=== PATIENT | male | born 1950 | race Caucasian/White ===

== ENCOUNTER → 2018-08-28 10:03 | Outpatient (CLI) | payer MEDICARE, SELFPAY ==
[2018-06-11 10:10] VITALS: BMI 27.8
[2018-08-28 10:44] LABS: Hemoglobin 15.6 g/dl (13.0-16.5); Mean Corp Hgb Conc 33.2 g/gl (32-36); Mean Corpuscular Hgb 31.8 pg (27.0-32.0); Mean Corpuscular Volume 95.7 fL (80-94); Mean Platelet Vol. 10.7 fl (6.2-12.0); Platelet Count 166 K/mm3 (150-450); RBC Distribution Width CV 13.8 % (11.6-14.6); RBC Distribution Width SD 46.7 fl (35.1-43.9); Red Blood Count 4.91 M/mm3 (4.6-6.2); White Blood Count 5.5 K/mm3 (4.4-11.0)
[2018-08-28 10:45] LABS: Scan Indicated on CBC? Y/N NO
[2018-08-28 11:19] LABS: Anion Gap 8 (5-15); BUN 17 mg/dL (7-18); BUN/Creat Ratio 11.3 RATIO (10-20); Calcium,Total 8.7 mg/dL (8.5-10.1); Chloride 106 mmol/L (98-107); Creatinine, Serum 1.51 mg/dL (0.70-1.30); EST Glomerular Filtration Rate 49 mL/min (>60); Est Glom Filt Rate - Afr Amer 60 mL/min (>60); Glucose 198 mg/dL (74-106); Potassium 4.3 mmol/L (3.5-5.1); Sodium Level 139 mmol/L (136-145); T4 Total, Thyroxin 8.3 ug/dL (4.5-12.1); Thyroid Stim Hormone (TSH) 1.39 uIU/mL (0.358-3.74)
== END ==
PROVIDERS: Family Provider Family Medicine; PCP Family Medicine; Referring Provider Internal Medicine Cardiovascular Disease; Visit Provider Internal Medicine Cardiovascular Disease
DX: E27.40 Unspecified adrenocortical insufficiency (principal); I48.91 Unspecified atrial fibrillation; N18.9 Chronic kidney disease, unspecified; K51.90 Ulcerative colitis, unspecified, without complications; I48.0 Paroxysmal atrial fibrillation; Z94.4 Liver transplant status
CPT/HCPCS: 36415; 80048; 84436; 84443; 85027; 93225; 93226

== ENCOUNTER 2018-09-01 22:54 | Observation (INO) | payer MEDICARE, SELFPAY ==
[2018-06-11 10:10] VITALS: BMI 27.8
[2018-09-01 22:55] VITALS: PULSE 136; RESP 19; TEMP 37.8; O2SAT 93; BMI 26.9
--- NOTE | 2018-09-01 22:57 | ED.RN ---
RN CALLED FOR EKG, PULLED OLD EKGS FOR
[2018-09-01 22:59] VITALS: BP 102/66; PULSE 113; RESP 18; TEMP 37.8; O2SAT 95
--- NOTE | 2018-09-01 23:17 | RAD_ITS ---
STUDY: X-RAY CHEST REASON FOR EXAM: Male, 68 years old. Rapid heart rate TECHNIQUE: PA and lateral COMPARISON: None. FINDINGS: The lungs are clear and expanded. There is no demonstrated pleural abnormality. Normal size heart. Normal mediastinum and romel. Normal visualized pulmonary arteries. Normal visualized aortic arch and descending thoracic aorta. Normal visualized thoracic spine. Normal visualized ribs, clavicles, and shoulders. There is no demonstrated abnormality of the visualized soft tissue structures of the upper abdomen. RAD/Chest PA and Lateral IMPRESSION: Normal x-ray examination of the chest. Electronically Signed: Isacc Montes MD at 1:34 EDT , Service support ,
--- NOTE | 2018-09-01 23:17 | EKG12_ITS ---
Test Reason : CP Blood Pressure : / mmHG Vent. Rate : 136 BPM Atrial Rate : 144 BPM P-R Int : 000 ms QRS Dur : 100 ms QT Int : 314 ms P-R-T Axes : 000 -68 041 degrees QTc Int : 472 ms Supraventricular tachycardia Left axis deviation Inferior infarct , age undetermined Anterior infarct , age undetermined Abnormal ECG Confirmed by TERRI COSME, DENNY ([id number]), book editor MARYJANE JULIAN ([id number]) on 09/06/2018 9:09:49 AM Referred By: Denny Doan Confirmed By:DENNY DOAN MD
--- NOTE | 2018-09-01 23:19 | ED.VISSUMM ---
- ER Visit Summary Date of Service: 09/01/18 Chief Complaint: Chest pain and palpitations History of Present Illness: The patient is a 68 M who presents with chest pain that began tonight. Patient describes the pain is sharp and pressure-like. Patient states pain is over the left chest and left shoulder. Patient states nothing seems to make it better or worse. Patient states he felt like his heart was racing. Patient states his watch said that his heart rate was 130. Patient admits to some shortness of breath. Patient admits to a cough and low-grade fever. Patient also admits to some lightheadedness. Patient denies any nausea or vomiting. Patient denies any diaphoresis. Physical Examination: Vital signs are stable except for a tachycardia of 136. Patient does have a temperature 100.1. Oxygen saturation is normal. Respiratory rate is normal. Patient is in no acute distress. Oral mucosa is pink and moist. Neck is supple. Trachea is midline. There is no JVD noted. Heart was regular with frequent ectopics. Lungs are clear and equal bilateral. There is good respiratory effort noted. Abdomen is soft. Bowel sounds are normal. There is no tenderness. There is no guarding noted. Cranial nerves II through XII are intact. There are no focal motor or sensory deficits noted. Test Results: EKG showed a supraventricular tachycardia at 136. There are no acute ST or T wave changes. Other than the heart rate, there are no acute changes compared to previous EKG dated 02/13/2013. CBC was normal. Basic metabolic profile, troponin, and d-dimer were obtained and were all normal. X-ray does not show any acute cardiopulmonary process. Emergency Department Course and Treatment: Patient was given IV fluids here. Patient is allergic to acetaminophen, aspirin, Naprosyn, and ibuprofen so I was unable to give him any antipyretic. Patient is chest pain has been waxing and waning. Patient's shoulder pain has been intermittent. Patient was feeling better on reevaluation. Patient has a HEART score of 5. Patient has a DIANE score of 2. I am unsure of the exact etiology of the patient's pain. I think the patient should be admitted for observation for further cardiac evaluation. Patient states it has been a long time since his last stress test. Case was discussed with the hospitalist. He will admit the patient for observation. Disposition: Admit for observation Impression: Chest pain This note was generated with [employer] dictation software. It may contain incorrect words, spelling, and punctuation that were not noted in review of the chart prior to signing ED Disposition - Plan for ED Patient: Referrals: Sudhir Richter MD [Primary Care Provider] -
--- NOTE | 2018-09-01 23:22 | ED.DCSUM_ITS ---
- ER Visit Summary Date of Service: 09/01/18 Chief Complaint: Chest pain and palpitations History of Present Illness: The patient is a 68 M who presents with chest pain that began tonight. Patient describes the pain is sharp and pressure-like. Patient states pain is over the left chest and left shoulder. Patient states nothing seems to make it better or worse. Patient states he felt like his heart was racing. Patient states his watch said that his heart rate was 130. Patient admits to some shortness of breath. Patient admits to a cough and low-grade fever. Patient also admits to some lightheadedness. Patient denies any nausea or vomiting. Patient denies any diaphoresis. Physical Examination: Vital signs are stable except for a tachycardia of 136. Patient does have a temperature 100.1. Oxygen saturation is normal. Respiratory rate is normal. Patient is in no acute distress. Oral mucosa is pink and moist. Neck is supple. Trachea is midline. There is no JVD noted. Heart was regular with frequent ectopics. Lungs are clear and equal bilateral. There is good respiratory effort noted. Abdomen is soft. Bowel sounds are normal. There is no tenderness. There is no guarding noted. Cranial nerves II through XII are intact. There are no focal motor or sensory deficits noted. Test Results: EKG showed a supraventricular tachycardia at 136. There are no acute ST or T wave changes. Other than the heart rate, there are no acute c hanges compared to previous EKG dated 02/13/2013. CBC was normal. Basic metabolic profile, troponin, and d-dimer were obtained and were all normal. X- ray does not show any acute cardiopulmonary process. Emergency Department Course and Treatment: Patient was given IV fluids here. Patient is allergic to acetaminophen, aspirin, Naprosyn, and ibuprofen so I was unable to give him any antipyretic. Patient is chest pain has been waxing and waning. Patient's shoulder pain has been intermittent. Patient was feeling better on reevaluation. Patient has a HEART score of 5. Patient has a DIANE score of 2. I am unsure of the exact etiology of the patient's pain. I think the patient should be admitted for observation for further cardiac evaluation. Patient states it has been a long time since his last stress test. Case was discussed with the hospitalist. He will admit the patient for observation. Disposition: Admit for observation Impression: Chest pain This note was generated with [employer] dictation software. It may contain incorrect words, spelling, and punctuation that were not noted in review of the chart prior to signing ED Disposition - Plan for ED Patient: Referrals: Sudhir Richter MD [Primary Care Provider] -
[2018-09-01] MEDS: 0.9% Normal Saline 1,000 ML 1000 ML IV (23:30)
[2018-09-01 23:32] LABS: Absolute Lymphocyte Count 1.26 X10^3/ul (0.83-4.51); Absolute Neutrophil Count 7.5 X10^3/uL (2.0-7.7); Basophil# 0.01 X10^3/uL; Basophil% 0.1 % (0-1); Eosinophil# 0.09 X10^3/uL; Eosinophils% 0.9 % (0-5); Hemoglobin 15.4 g/dl (13.0-16.5); Lymphocyte # 1.26 X10^3/ul (4.0); Lymphocyte % 12.2 % (19-41); Mean Corp Hgb Conc 33.5 g/gl (32-36); Mean Corpuscular Hgb 31.5 pg (27.0-32.0); Mean Corpuscular Volume 94.1 fL (80-94); Mean Platelet Vol. 10.7 fl (6.2-12.0); Monocyte% 13.6 % (0-10); Neutrophil # 7.53 X10^3/uL (2.7-7.7); Neutrophil % 73.1 % (47-70); Platelet Count 138 K/mm3 (150-450); RBC Distribution Width CV 13.5 % (11.6-14.6); RBC Distribution Width SD 46.5 fl (35.1-43.9); Red Blood Count 4.89 M/mm3 (4.6-6.2); White Blood Count 10.3 K/mm3 (4.4-11.0)
[2018-09-01 23:34] LABS: International Normalized Ratio 1.1; Prothrombin Time (Protime)PT. 14.2 SECONDS (11.7-14.9)
[2018-09-01 23:35] LABS: POSITIVE COUNT NO; POSITIVE DIFFERENTIAL NO; POSITIVE MORPHOLOGY NO; Partial Thromboplast Time 30.2 Seconds (24.1-36.2)
[2018-09-01 23:41] LABS: D-Dimer Quantitative (DVT/PE) 0.31 FEU/ug/m (0.27-0.49)
[2018-09-01 23:45] LABS: AST(SGOT) 27 U/L (15-37); Alanine Aminotransfer ALT/SGPT 31 U/L (16-61); Albumin, Serum 3.7 g/dL (3.2-5.0); Alkaline Phosphatase 96 U/L (45-117); Anion Gap 8 (5-15); BUN 14 mg/dL (7-18); BUN/Creat Ratio 9.8 RATIO (10-20); Calcium,Total 8.7 mg/dL (8.5-10.1); Chloride 105 mmol/L (98-107); Creatinine, Serum 1.43 mg/dL (0.70-1.30); EST Glomerular Filtration Rate 52 mL/min (>60); Est Glom Filt Rate - Afr Amer 63 mL/min (>60); Estimated Creatinine Clearance 68.07 ml/min; Globulin 3.8 g/dL (2.2-4.2); Glucose 120 mg/dL (74-106); Lipase 316 U/L (73-393); Potassium 4.1 mmol/L (3.5-5.1); Protein, Total 7.5 g/dL (6.4-8.2); Sodium Level 135 mmol/L (136-145)
[2018-09-01 23:48] LABS: Lactic Acid 1.8 mmol/L (0.4-2.0)
[2018-09-02] VITALS (17 sets, daily range): BP systolic 105–125; BP diastolic 53–85; PULSE 71–129; RESP 14–20; TEMP 36.8–37.7; O2SAT 93–97; BMI 25.8
[2018-09-02 00:52] LABS: Color, Urine Yellow (Yellow); Glucose, Dipstick Normal (Normal); Ketone-Dipstick 5 mg/dl (Negative); Leukocyte Esterase-Dipstick 25 /ul (Negative); Nitrite-Dipstick Negative (Negative); Occult Blood-Urine 50 /ul (Negative); Protein-Dipstick 15 mg/dl (Negative); Urine Bilirubin Dipstick Negative (Negative); Urine Clarity Sl. Cloudy (Clear); Urine Urobilinogen Normal (Normal)
[2018-09-02 00:58] LABS: Bacteria RARE /hpf (None Seen); Mucous, Urine 1+ /hpf (<or=2+); Red Blood Cells-Urine 0-5 SEEN /hpf (0-5); Squamous Epithelial Cells - UA 0-5 SEEN /hpf (0-5); White Blood Cells 0-5 SEEN /hpf (0-5)
--- NOTE | 2018-09-02 02:36 | HP.PCM_ITS ---
Problem List (1) Chest pain Status: Acute History of Present Illness Date of Admission: 09/02/18 Chief Complaint: fever The patient is a 68 year old M with a significant history of diabetes mellitus; paroxysmal A. 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 Because he has a history of liver transplant and on immunosuppressive medication he was concerned of his fever and so he came to the emergency department. Also patient has a watch that monitor his heart. He reports that about 4 days ago his pulse monitored by his watch was elevated to about 141 and he felt episodic increased beats of his heart for which reason he went to see Dr. Doan, air surveillance operator. He reported that he wore a heart monitor for 24 hours and is yet to know the reading from the heart monitor. Further patient reports left chest pain that radiates to his left shoulder. He reported that the pain at his chest is mild and it is pressure-like. However the pain on his left shoulder is sharp and more severe with intensity of 6-7 on a scale of 1-10. His chest pain is episodic and it last for about 1 minutes in each occurrence. His chest pain and shoulder pain started an hour prior to presentation. It seemed that his chest pain improved with lying down. He denies any nausea, vomiting or diaphoresis. Further he reports dyspnea with mild exertion. He is unable to take a deep breath. He reports a transient chills. Further he has a cough. Emergency department doctor reported that initially patient had SVT with heart rates of 136 which decreased to 110 and later he was in sinus rhythm with administration of IV fluids. Further he has a cough. Also patient reported that the output in his ileostomy is watery. But typically it has a consistency of a pudding. His mother from heart attack in the late 50s. 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) Atrial fibrillation (Chronic) CRF (chronic renal failure) (Chronic) Fever (Chronic) Hypomagnesemia (Chronic) Ulcerative colitis (Chronic) History of sepsis (Chronic) History of liver transplant (Chronic) Post-transplant lymphoproliferative disorder (Chronic) Primary sclerosing cholangitis (Chronic) CKD (chronic kidney disease) stage 2, GFR 60-89 ml/min (Chronic) PAF (paroxysmal atrial fibrillation) (Chronic) GERD (gastroesophageal reflux disease) (Chronic) Medical History: Medical History (Last Reviewed 09/02/18 @ 04:00 by Tomas Calderon MD) Chest pain, unspecified (Acute) R07.9 Adrenal insufficiency (Chronic) E27.40 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) Allergies acetaminophen [From Tylenol] Allergy (Verified 09/01/18 22:59) Itching morphine Allergy (Verified 09/01/18 22:59) Shortness of breath naltrexone Allergy (Verified 09/01/18 22:59) Shortness of breath naproxen sodium [From Aleve] Allergy (Verified 09/01/18 22:59) Itching aspirin Adverse Reaction (Verified 09/01/18 22:59) Other DUE TO LIVER ibuprofen [From Motrin] Adverse Reaction (Verified 09/01/18 22:59) Other Home Medications: Ambulatory Orders Medication Instructions Recorded Ondansetron [Zofran Odt] 4 mg PO Q8H PRN PRN #10 tab 11/09/15 Acyclovir 400 mg PO BID 11/17/15 Cholecalciferol (VIT D3) [Vitamin 2,000 unit PO BID 11/17/15 D3] Multivitamin [Daily Multiple 1 ea PO DAILY 11/17/15 Vitamin] Ranitidine [Zantac] 150 mg PO BID 11/17/15 Rifampin [Rifadin] 150 mg PO BID 11/17/15 Smz/Tmp Ds [Bactrim Ds] 1 tab PO MOWEFR 11/17/15 Temazepam 15 mg PO QHS PRN PRN 11/17/15 Ursodiol [Elsa] 750 mg PO BID 11/17/15 tacrolimus 1 mg capsule 6 mg PO Q12H 06/11/18 tamsulosin 0.4 mg capsule 0.4 mg PO DAILY 06/11/18 Metoprolol(XL)Succ [Toprol Xl 25 mg PO BID 09/01/18 (Beta Cheri)] Surgical History: - - Colectomy, Ostomy, Cholecystectomy, and liver transplant. Psychiatric History: No pertinent psych hx Lives: Spouse/ Significant Other Smoking Status: Never smoker Alcohol: None - *Family History Maternal Family History: Family History (Last Reviewed 06/11/18 @ 10:17 by Denny Doan MD) Unknown No problems noted. History Items: Cancer, Heart Disease, Pulmonary Disease Paternal Family History: Family History (Last Reviewed 06/11/18 @ 10:17 by Denny Doan MD) Unknown No problems noted. History Items: Pulmonary Disease Review of Systems Constitutional: Reports: Chills - Transient, Fever. Denies: Weight Change HEENT: Denies: Head Aches, Sinus Congestion, Sinus Drainage Cardiovascular: Denies: Chest Pain, Palpitations Respiratory: Reports: Cough, Shortness of breath upon exertion. Denies: Shortness of breath at rest, Sputum production Gastrointestinal: Reports: Abdominal Pain - Abdominal cramps., Diarrhea. Denies: Nausea, Vomiting Genitourinary: Denies: Dysuria Musculoskeletal: Denies: Joint Pain, Joint Tenderness Skin: Denies: Rash, Wounds Neurological: Denies: Numbness, Tingling, Focal weakness Psychiatric: Denies: Anxiety, Depression, Homicidal Ideations, Suicidal Ideations Hematologic/ Lymphatic: Denies: Easy Bruising, Easy Bleeding VTE Information - Inpt Only VTE Present on Admission: No VTE Mechan Device Prophylaxis: None VTE Pharm Prophylaxis ordered?: Yes Patient Problems: Active and Suspected Problems (Last Reviewed 09/02/18 @ 04:00 by Tomas Calderon MD) Chest pain (Acute) - Physical Exam General: Alert, Oriented x3, Cooperative HEENT: Atraumatic, PERRLA, EOMI, Normocephalic Neck: Supple, No JVD, Negative Carotid Bruits Lungs: Clear to auscultation, Normal air movement Cardiovascular: Regular rate, No murmurs Abdomen: Bowel Sounds Present, Soft, Non Tender, - - Colostomy bag in place Extremities: No edema, Capillary Refill Less than 3 Seconds Skin: No rashes, No breakdown Musculoskeletal: No Tenderness to Palpation of Joints or Extremities Neurological: Neuro grossly intact Psych/Mental Status: Normal Affect, Appropriate Vital Signs Temp Pulse Resp BP Pulse Ox 98.8 F 81 17 108/69 96 09/02/18 02:00 09/02/18 02:00 09/02/18 02:00 09/02/18 02:00 09/02/18 02:00 Oxygen Flow Rate (L/min) 2 Oxygen Delivery Method Nasal Cannula Weight: 111.4 kg Body Mass Index (BMI) 26.9 Laboratory Tests Past 24 Hrs 09/01/18 09/01/18 09/01/18 22:58 22:58 22:58 WBC 10.3 RBC 4.89 Hgb 15.4 Hct 46.0 MCV 94.1 H MCH 31.5 MCHC 33.5 RDW 13.5 RDW Differential 46.5 H Plt Count 138 L MPV 10.7 Immature Gran % (Auto) 0.100 Neut % (Auto) 73.1 H Lymph % (Auto) 12.2 L Lyman % (Auto) 13.6 H Eos % (Auto) 0.9 Baso % (Auto) 0.1 Absolute Neuts (auto) 7.5 Absolute Lymphs (auto) 1.26 Total Counted Not Reportable PT 14.2 INR 1.1 APTT 30.2 D-Dimer Quant (PE/DVT) 0.31 Sodium 135 L Potassium 4.1 Chloride 105 Carbon Dioxide 22.0 Anion Gap 8 BUN 14 Creatinine 1.43 H Estim Creat Clear Calc 68.07 Est GFR (MDRD) Af Amer 63 Est GFR (MDRD) Non-Af 52 L BUN/Creatinine Ratio 9.8 L Glucose 120 H Lactic Acid Calcium 8.7 Total Bilirubin 1.40 H AST 27 ALT 31 Alkaline Phosphatase 96 Troponin I Total Protein 7.5 Albumin 3.7 Globulin 3.8 Albumin/Globulin Ratio 1.0 Lipase 316 Urine Color Urine Clarity Urine pH Ur Specific [place] Urine Protein Urine Glucose (UA) Urine Ketones Urine Occult Blood Urine Nitrite Urine Bilirubin Urine Urobilinogen Ur Leukocyte Esterase Urine RBC Urine WBC Ur Squamous Epith Cells Urine Bacteria Urine Mucus 09/01/18 09/01/18 09/02/18 22:58 22:58 00:35 WBC RBC Hgb Hct MCV MCH MCHC RDW RDW Differential Plt Count MPV Immature Gran % (Auto) Neut % (Auto) Lymph % (Auto) [place]yman % (Auto) Eos % (Auto) Baso % (Auto) Absolute Neuts (auto) Absolute Lymphs (auto) Total Counted PT INR APTT D-Dimer Quant (PE/DVT) Sodium Potassium Chloride Carbon Dioxide Anion Gap BUN Creatinine Estim Creat Clear Calc Est GFR (MDRD) Af Amer Est GFR (MDRD) Non-Af BUN/Creatinine Ratio Glucose Lactic Acid 1.8 Calcium Total Bilirubin AST ALT Alkaline Phosphatase Troponin I < 0.015 Total Protein Albumin Globulin Albumin/Globulin Ratio Lipase Urine Color Yellow Urine Clarity Sl. Cloudy Urine pH 5.0 Ur Specific [place] 1.020 Urine Protein 15 H Urine Glucose (UA) Normal Urine Ketones 5 H Urine Occult Blood 50 H Urine Nitrite Negative Urine Bilirubin Negative Urine Urobilinogen Normal Ur Leukocyte Esterase 25 H Urine RBC 0-5 SEEN Urine WBC 0-5 SEEN Ur Squamous Epith Cells 0-5 SEEN Urine Bacteria RARE Urine Mucus 1+ Assessment/Plan All Active Problems (Last Reviewed 09/02/18 @ 04:00 by Tomas Calderon MD) Chest pain (Acute) Chest pain, unspecified (Acute) The patient is a 68 year old M with a significant history of diabetes mellitus; paroxysmal A. 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 Chest pain Different diagnosis include A flutter; pericarditis; angina or other Admit to a monitored bed on PCU CXR independently reviewed confirms no acute cardiopulmonary process. EKG independently reviewed confirms tachycardia with probable SVT or A flutter. Left axis deviation on EKG. Also EKG with poor R wave progression. Old records reviewed showed EKG with left axis deviation and poor R wave progression as well as first-degree AV block. Patient reports severe itching with aspirin. Aspirin was not given at the emergency department. We will not start aspirin at this time. Allergy list is naproxen. He reported he is able to tolerate ibuprofen. Indeed he took ibuprofen for at home for his fever. Reportedly he stays away from Tylenol because of his history of liver disease. SL NTG 0.4 mg prn as needed for chest pain We will check lipid panel. Serial cardiac enzymes Stat EKG as needed for chest pain Chemical stress test in am. He reports that he had a treadmill stress test many years ago and at that time his heart rate could not go to desired heart rate. Will order ESR and CRP to evaluate for pericarditis. TSH ordered. We will order comprehensive respiratory pathogen panel. Consider discussing with Dr. Doan's office for results of Holter monitor. Acute gastroenteritis Receive IV fluids in the emergency department. Maintenance normal saline IV fluid continue. Will order enteric pathogen panel. Check magnesium level Paroxysmal A. fib Patient with a history of proximal A. fib. Patient appears to be in SVT/A flutter on admission Metoprolol continued On telemetric monitoring in the PCU. Primary sclerosing cholangitis status post liver transplant Continue tacrolimus Continue acyclovir prophylactic viral infection Patient reports that he is on rifampin because he developed severe itching. Rifampin continued Ursodiol continued Bactrim for PCP prophylaxis continued Diabetes mellitus Patient is not on any home hypoglycemic medication since his blood glucose is always in the 140s. His blood glucose at time of admission was 120 and it was within goal. Probable GERD Patient on Zantac for many years but he is unsure why he takes Zantac. In the setting of chest pain with unclear etiology at least will continue his Zantac at this time. Patient to clarify with prescriber why he is on Zantac. Insomnia Temazepam prn continued Posttransplant lymphoproliferative disease. Patient reports that he developed post transplant liver platelet disorder x4 times after his liver transplant. Because of increased risk of colon cancer he had a colectomy. Ostomy nurse consult for colostomy management. BPH Tamsulosin continued DVT prophylaxis Subcutaneous Lovenox ordered Code Visit OBSV E&M: [id number] Initial observation care L3
--- NOTE | 2018-09-02 04:00 | ECHOD_ITS ---
Reason For Study: Chest Pain Procedure This was a 2D Doppler, Color Flow transthoracic echocardiogram. Exam performed portable in patient room. Left Ventricle Normal LV size. The estimated ejection fraction is 55 %. Stage 1 diastolic dysfunction. No regional wall motion abnormalities noted. Right Ventricle Normal RV size. Normal systolic function. Atria Normal left atrium. Normal right atrium. Mitral Valve Normal mitral valve. Tricuspid Valve Normal tricuspid valve. Mild (1+) tricuspid valve insufficiency. Pulmonary artery systolic pressure is 30 mmHg. Aortic Valve Normal aortic valve. Trisinus/trileaflet aortic valve. Pulmonic Valve The pulmonic valve is not well visualized. Great Vessels Normal aortic root. The pulmonary artery is normal size. Normal inferior vena cava. Pericardium/Pleural No pericardial effusion. MMode/2D Measurements & Calculations LVIDd: 5.4 cm IVSd: 1.2 cm Ao root diam: 3.7 cm LVIDs: 3.5 cm LVPWd: 0.89 cm RVDd: 3.5 cm FS: 35.2 % LAV(MOD-bp): 30.1 ml LVAd ap4: 33.2 cm2 SV(MOD-sp4): 63.1 ml LAV(MOD-bp) Indexed: 12.0 ml/m2 EDV(MOD-sp4): 97.6 ml LAV(MOD-sp2): 36.3 ml EDV(sp4-el): 99.2 ml LAV(MOD-sp4): 19.2 ml LVAs ap4: 17.9 cm2 ESV(MOD-sp4): 34.5 ml ESV(sp4-el): 34.9 ml EF(MOD-sp4): 64.7 % EF(sp4-el): 64.8 % SV(sp4-el): 64.2 ml LA A4 area: 11.1 cm2 LA dimension(2D): 3.5 cm RA A4 area: 19.3 cm2 Doppler Measurements & Calculations MV E max bradford: 69.1 cm/sec Lat A' bradford: 6.1 cm/sec Med Peak E' [place]: 4.7 cm/sec MV A max bradford: 93.8 cm/sec E/E' med: 14.7 MV E/A: 0.74 Ao V2 max: 132.1 cm/sec LV V1 max: 94.4 cm/sec PA V2 max: 74.0 cm/sec Ao max P.0 mmHg LV V1 max P.6 mmHg Ao V2 mean: 100.9 cm/sec Ao mean P.4 mmHg Ao V2 VTI: 28.4 cm TR max bradford: 254.7 cm/sec TR max P.9 mmHg Interpretation Summary Normal LV size. The estimated ejection fraction is 55 %. Stage 1 diastolic dysfunction. Mild (1+) tricuspid valve insufficiency. Pulmonary artery systolic pressure is 30 mmHg. Compared to previous study, the left ventricular systolic function is the same.. Ordering Physician: Tomas Calderon Referring Physician: Sudhir Richter Performed By: Prerna Winchester RDCS, RVT
--- NOTE | 2018-09-02 04:00 | EKG12_ITS ---
Test Reason : Blood Pressure : / mmHG Vent. Rate : 080 BPM Atrial Rate : 080 BPM P-R Int : 238 ms QRS Dur : 114 ms QT Int : 394 ms P-R-T Axes : 087 -66 018 degrees QTc Int : 454 ms Sinus rhythm with 1st degree A-V block Left anterior fascicular block Cannot rule out Anterior infarct , age undetermined Abnormal ECG When compared with ECG of 01-SEP-2018 22:56, MANUAL COMPARISON REQUIRED, DATA IS UNCONFIRMED Confirmed by TERRI COSME, DENNY ([id number]), manuscript editor MARYJANE JULIAN ([id number]) on 09/06/2018 9:46:38 AM Referred By: Denny Doan Confirmed By:DENNY DOAN MD
[2018-09-02] MEDS: 0.9% Normal Saline 1,000 ML 75 ML IV (04:44)
[2018-09-02 04:54] LABS: Erythrocyte Sedimentation Rate 9 mm/hr (0-20)
[2018-09-02 05:08] LABS: Cholesterol 176 mg/dL (200); High Density Lipoprotein 52 mg/dL; Magnesium 1.3 mg/dL (1.6-2.6); Thyroid Stim Hormone (TSH) 0.68 uIU/mL (0.358-3.74); Triglycerides 132 mg/dL; Very Low Density Lipoprotein 26 mg/dL (5-40)
[2018-09-02] MEDS: Ibuprofen 400 MG Tablet PO ×2 (05:54→12:20)
--- NOTE | 2018-09-02 07:52 | PN_ITS ---
Subjective: The patient is a 68-year-old male with a past medical history of diabetes mellitus type 2, paroxysmal atrial fibrillation, first-degree AV block/left anterior hemiblock, ulcerative colitis with hx of colectomy, history of liver transplant, posttransplant lymphoproliferative disorder,BPH, primary sclerosing cholangitis, chronic renal failure stage III and GERD who presented to the emergency department complaining of chest pain, SOB and palpitations. He stated his watch said his heart rate was 130. He additionally complained of cough and fevers. Vital signs at presentation to the emergency room were temperature 100.1, pulse rate 136, respiratory rate 19 and he was 93% saturated on room air. White blood cell count was 10.3 with 73% neutrophils. Platelets were mildly decreased at 138,000 and the hemoglobin was 15.4. PT was 14.2 and a d-dimer was normal at 0.31. Sodium was mildly depressed at 135 and the BUN was 14 with a creatinine of 1.43 which is within his baseline. Total bilirubin was 1.4 but the other LFTs were within normal limits. Troponin was less than 0.015. Urine had 0-5 WBCs and rare bacteria. Chest x-ray showed no infiltrates, pleural effusions or pulmonary vascular congestion. The EKG was reported as SVT per the ER doc and when seen by the hospitalist after fluids he was in NSR. He reportedly had a holtor monitor placed earlier in the week after seeing Dr. Doan and c/o palpitations. He was admitted to a monitored bed on PCU and cardiology consult was ordered regarding the SVT. A respiratory panel and BC's were ordered. All events the past 24 hours of been reviewed. T-max was 100.1 ?F at admission. He has been afebrile since midnight. Currently 95% on room air with stable vital signs. ESR is 9 and the CRP is markedly elevated at 61.8. Troponin x2 have been negative. Magnesium is low at 1.3. LDL is 98 with an HDL of 52 and TSH was normal at 0.68. Mag 4 GM IV has been ordered. Objective: PHYSICAL EXAM: GENERAL: alert, oriented X 3, Cooperative, NAD ORAL: moist mucosa, no mucosal lesions NECK: No JVD, supple, trachea midline LUNGS: CTA, symmetric chest expansion HEART: RRR, Normal S1 and S2, no rub, no gallop, no MM ABDOMEN: soft, NT, ND, BS present, no guarding with palpation EXTREMITIES: no edema, no cyanosis, no calf tenderness SKIN: No rashes, no breakdown NEUROLOGIC: no focal neurologic deficits PSYCH: appropriate, normal affect, pleasant - Physical Exam Vital Signs Temp Pulse Resp BP Pulse Ox 98.3 F 84 16 109/56 L 97 09/02/18 04:03 09/02/18 04:52 09/02/18 04:03 09/02/18 04:04 09/02/18 04:03 Oxygen Flow Rate (L/min) 2 Oxygen Delivery Method Room Air Weight: 235 lb 3.732 oz Body Mass Index (BMI) 25.8 Laboratory Tests Past 24 Hrs 09/01/18 09/01/18 09/01/18 22:58 22:58 22:58 WBC 10.3 RBC 4.89 Hgb 15.4 Hct 46.0 MCV 94.1 H MCH 31.5 MCHC 33.5 RDW 13.5 RDW Differential 46.5 H Plt Count 138 L MPV 10.7 Immature Gran % (Auto) 0.100 Neut % (Auto) 73.1 H Lymph % (Auto) 12.2 L [place] % (Auto) 13.6 H Eos % (Auto) 0.9 Baso % (Auto) 0.1 Absolute Neuts (auto) 7.5 Absolute Lymphs (auto) 1.26 Total Counted Not Reportable ESR PT 14.2 INR 1.1 APTT 30.2 D-Dimer Quant (PE/DVT) 0.31 Sodium 135 L Potassium 4.1 Chloride 105 Carbon Dioxide 22.0 Anion Gap 8 BUN 14 Creatinine 1.43 H Estim Creat Clear Calc 68.07 Est GFR (MDRD) Af Amer 63 Est GFR (MDRD) Non-Af 52 L BUN/Creatinine Ratio 9.8 L Glucose 120 H Lactic Acid Calcium 8.7 Magnesium Total Bilirubin 1.40 H AST 27 ALT 31 Alkaline Phosphatase 96 Troponin I C-React Prot Ext Range Total Protein 7.5 Albumin 3.7 Globulin 3.8 Albumin/Globulin Ratio 1.0 Triglycerides Cholesterol LDL Cholesterol VLDL Cholesterol HDL Cholesterol Lipase 316 TSH Urine Color Urine Clarity Urine pH Ur Specific [place] Urine Protein Urine Glucose (UA) Urine Ketones Urine Occult Blood Urine Nitrite Urine Bilirubin Urine Urobilinogen Ur Leukocyte Esterase Urine RBC Urine WBC Ur Squamous Epith Cells Urine Bacteria Urine Mucus Enterovirus RNA (PCR) 09/01/18 09/01/18 09/02/18 22:58 22:58 00:35 WBC RBC Hgb Hct MCV MCH MCHC RDW RDW Differential Plt Count MPV Immature Gran % (Auto) Neut % (Auto) Lymph % (Auto) [place] % (Auto) Eos % (Auto) Baso % (Auto) Absolute Neuts (auto) Absolute Lymphs (auto) Total Counted ESR PT INR APTT D-Dimer Quant (PE/DVT) Sodium Potassium Chloride Carbon Dioxide Anion Gap BUN Creatinine Estim Creat Clear Calc Est GFR (MDRD) Af Amer Est GFR (MDRD) Non-Af BUN/Creatinine Ratio Glucose Lactic Acid 1.8 Calcium Magnesium Total Bilirubin AST ALT Alkaline Phosphatase Troponin I < 0.015 C-React Prot Ext Range Total Protein Albumin Globulin Albumin/Globulin Ratio Triglycerides Cholesterol LDL Cholesterol VLDL Cholesterol HDL Cholesterol Lipase TSH Urine Color Yellow Urine Clarity Sl. Cloudy Urine pH 5.0 Ur Specific [place] 1.020 Urine Protein 15 H Urine Glucose (UA) Normal Urine Ketones 5 H Urine Occult Blood 50 H Urine Nitrite Negative Urine Bilirubin Negative Urine Urobilinogen Normal Ur Leukocyte Esterase 25 H Urine RBC 0-5 SEEN Urine WBC 0-5 SEEN Ur Squamous Epith Cells 0-5 SEEN Urine Bacteria RARE Urine Mucus 1+ Enterovirus RNA (PCR) 09/02/18 09/02/18 09/02/18 04:28 04:28 04:45 WBC RBC Hgb Hct MCV MCH MCHC RDW RDW Differential Plt Count MPV Immature Gran % (Auto) Neut % (Auto) Lymph % (Auto) [place] % (Auto) Eos % (Auto) Baso % (Auto) Absolute Neuts (auto) Absolute Lymphs (auto) Total Counted ESR 9 PT INR APTT D-Dimer Quant (PE/DVT) Sodium Potassium Chloride Carbon Dioxide Anion Gap BUN Creatinine Estim Creat Clear Calc Est GFR (MDRD) Af Amer Est GFR (MDRD) Non-Af BUN/Creatinine Ratio Glucose Lactic Acid Calcium Magnesium 1.3 L Total Bilirubin AST ALT Alkaline Phosphatase Troponin I < 0.015 C-React Prot Ext Range 61.80 H Total Protein Albumin Globulin Albumin/Globulin Ratio Triglycerides 132 Cholesterol 176 LDL Cholesterol 98 VLDL Cholesterol 26 HDL Cholesterol 52 Lipase TSH 0.68 Urine Color Urine Clarity Urine pH Ur Specific [place] Urine Protein Urine Glucose (UA) Urine Ketones Urine Occult Blood Urine Nitrite Urine Bilirubin Urine Urobilinogen Ur Leukocyte Esterase Urine RBC Urine WBC Ur Squamous Epith Cells Urine Bacteria Urine Mucus Enterovirus RNA (PCR) Pending 09/02/18 07:00 WBC RBC Hgb Hct MCV MCH MCHC RDW RDW Differential Plt Count MPV Immature Gran % (Auto) Neut % (Auto) Lymph % (Auto) [place] % (Auto) Eos % (Auto) Baso % (Auto) Absolute Neuts (auto) Absolute Lymphs (auto) Total Counted ESR PT INR APTT D-Dimer Quant (PE/DVT) Sodium Potassium Chloride Carbon Dioxide Anion Gap BUN Creatinine Estim Creat Clear Calc Est GFR (MDRD) Af Amer Est GFR (MDRD) Non-Af BUN/Creatinine Ratio Glucose Lactic Acid Calcium Magnesium Total Bilirubin AST ALT Alkaline Phosphatase Troponin I Pending C-React Prot Ext Range Total Protein Albumin Globulin Albumin/Globulin Ratio Triglycerides Cholesterol LDL Cholesterol VLDL Cholesterol HDL Cholesterol Lipase TSH Urine Color Urine Clarity Urine pH Ur Specific [place] Urine Protein Urine Glucose (UA) Urine Ketones Urine Occult Blood Urine Nitrite Urine Bilirubin Urine Urobilinogen Ur Leukocyte Esterase Urine RBC Urine WBC Ur Squamous Epith Cells Urine Bacteria Urine Mucus Enterovirus RNA (PCR) Medical Necessity - Tobacco Use Smoking Status: Never smoker Assessment/Plan All Active Problems (Last Reviewed 09/02/18 @ 04:00 by Tomas Calderon MD) Chest pain (Acute) Bacteremia due to Gram-negative bacteria (Acute) Chest pain, unspecified (Acute) 1. left chest pain 2. FUO in an immunocompromised pt with hx of liver transplant 20 years ago 3. PAF with RVR 4. Hypomagnesemia The pt was seen independently and in conjunction with Noman CAMPA - the plan for care was discussed with Noman and orders were written. Code Visit Inpatient E&M: 31825 Subs Hosp L3
[2018-09-02] MEDS: Magnesium Sulfate 4gm/100mL 4 GM/100 ML IV.SOLN. IV (08:12)
--- NOTE | 2018-09-02 08:16 | CON.PCM_ITS ---
Reason for Consult Date of Consultation: 09/02/18 Reason for Consultation: Palpitations History of Present Illness: RY CARDONA, is a 68 M who presented to the emergency room yesterday with palpitations. He is a gentleman with a history of paroxysmal atrial fibrillation, history of ulcerative colitis, status post liver transplantation almost 20 years ago. He had been having a fever over the last few days but no cough or sore throat. He had not had any dizziness or diaphoresis no near syncope or syncope. He presented to the emergency room and was noted to have a rapid heart rate with his EKG demonstrating an SVT with a rate of 135 bpm. Defervesced and his heart rate improved and cardiology was called to follow him up. He denies any chest pain or shortness of breath or paroxysmal nocturnal dyspnea he thinks that occasionally he does feel his heart race a little bit but has never sustained into atrial fibrillation. He has had no neck arm or jaw discomfort to suggest angina no dizziness or diaphoresis no near syncope or syncope. His physical exam here today demonstrates clear lung andrade regular rate and rhythm and no pedal edema. Past Medical History Allergies/Adverse Reactions: Allergies acetaminophen [From Tylenol] Allergy (Verified 09/01/18 22:59) Itching morphine Allergy (Verified 09/01/18 22:59) Shortness of breath naltrexone Allergy (Verified 09/01/18 22:59) Shortness of breath naproxen sodium [From Aleve] Allergy (Verified 09/01/18 22:59) Itching aspirin Adverse Reaction (Verified 09/01/18 22:59) Other DUE TO LIVER Home Medications: Ambulatory Orders Medication Instructions Recorded Ondansetron [Zofran Odt] 4 mg PO Q8H PRN PRN #10 tab 11/09/15 Acyclovir 400 mg PO BID 11/17/15 Cholecalciferol (VIT D3) [Vitamin 2,000 unit PO BID 11/17/15 D3] Multivitamin [Daily Multiple 1 ea PO DAILY 11/17/15 Vitamin] Ranitidine [Zantac] 150 mg PO BID 11/17/15 Rifampin [Rifadin] 150 mg PO BID 11/17/15 Smz/Tmp Ds [Bactrim Ds] 1 tab PO MOWEFR 11/17/15 Temazepam 15 mg PO QHS PRN PRN 11/17/15 Ursodiol [Elsa] 750 mg PO BID 11/17/15 tacrolimus 1 mg capsule 6 mg PO Q12H 06/11/18 tamsulosin 0.4 mg capsule 0.4 mg PO DAILY 06/11/18 Metoprolol(XL)Succ [Toprol Xl 25 mg PO DAILY 09/01/18 (Beta Cheri)] Past Medical History (Chronic Problems): Chronic Problems (Last Reviewed 09/02/18 @ 04:00 by Tomas Calderon MD) Adrenal insufficiency (Chronic) 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) Atrial fibrillation (Chronic) CRF (chronic renal failure) (Chronic) Fever (Chronic) Hypomagnesemia (Chronic) Ulcerative colitis (Chronic) History of sepsis (Chronic) History of liver transplant (Chronic) Post-transplant lymphoproliferative disorder (Chronic) Primary sclerosing cholangitis (Chronic) CKD (chronic kidney disease) stage 2, GFR 60-89 ml/min (Chronic) PAF (paroxysmal atrial fibrillation) (Chronic) GERD (gastroesophageal reflux disease) (Chronic) Surgical History: - - Colectomy, Ostomy, Cholecystectomy, and liver transplant. Psychiatric History: No pertinent psych hx - *Family History Maternal Family History: Family History (Last Reviewed 06/11/18 @ 10:17 by Denny Doan MD) Unknown No problems noted. History Items: Cancer, Heart Disease, Pulmonary Disease Paternal Family History: Family History (Last Reviewed 06/11/18 @ 10:17 by Denny Doan MD) Unknown No problems noted. History Items: Pulmonary Disease Lives: Spouse/ Significant Other Smoking Status: Never smoker Alcohol: None Drugs: None Subjectve: Pleasant gentleman in no apparent distress Objective: Vital Signs Temp Pulse Resp BP Pulse Ox 98.3 F 84 16 109/56 L 95 09/02/18 04:03 09/02/18 04:52 09/02/18 04:03 09/02/18 04:04 09/02/18 07:37 Oxygen Flow Rate (L/min) 2 Oxygen Delivery Method Room Air Weight: 235 lb 3.732 oz Body Mass Index (BMI) 25.8 General: Awake, Alert, Oriented x 3 HEENT: PERRL, EOMI, Sclera Non Icteric Neck: Supple, Good ROM, No Lymph Node Enlargement Lungs: Clear to auscultation Cardiovascular: Regular Rhythm, Normal S1, Normal S2, No Murmurs, No Rubs, No Gallops Vascular: No Carotid Bruits, Normal Femoral Pulses, Normal Radial Pulses, Normal Dorsalis Pedal Pulse, Normal Posterior Tibial Pulses Abdomen: Bowel Sounds Present, Soft, Non Tender, No HSM, No Organomegaly Extremities: No Cyanosis, No Clubbing, No edema Musculoskeletal: No Erythema Skin: No Rashes Lymphatic: No Lymph Node Enlargement Neurological: No Focal Motor or Sensory Deficit Psych/Mental Status: Appropriate 09/01/18 22:58: WBC 10.3, RBC 4.89, Hgb 15.4, Hct 46.0, MCV 94.1 H, MCH 31.5, MCHC 33.5, RDW 13.5, RDW Differential 46.5 H, Plt Count 138 L, MPV 10.7, Immature Gran % (Auto) 0.100, Neut % (Auto) 73.1 H, Lymph % (Auto) 12.2 L, [place] % (Auto) 13.6 H, Eos % (Auto) 0.9, Baso % (Auto) 0.1, Absolute Neuts (auto) 7.5, Total Counted Not Reportable 09/01/18 22:58: PT 14.2, INR 1.1, APTT 30.2, D-Dimer Quant (PE/DVT) 0.31 09/01/18 22:58: Sodium 135 L, Potassium 4.1, Chloride 105, Carbon Dioxide 22.0, Anion Gap 8, BUN 14, Creatinine 1.43 H, Est GFR (MDRD) Af Amer 63, Est GFR (MDRD) Non-Af 52 L, BUN/Creatinine Ratio 9.8 L, Glucose 120 H, Calcium 8.7, Total Bilirubin 1.40 H 09/01/18 22:58: Lactic Acid 1.8 09/01/18 22:58: Troponin I < 0.015 09/02/18 00:35: Urine Color Yellow, Urine Clarity Sl. Cloudy, Urine pH 5.0, Ur Specific [place] 1.020, Urine Protein 15 H, Urine Glucose (UA) Normal, Urine Ketones 5 H, Urine Occult Blood 50 H, Urine Nitrite Negative, Urine Bilirubin Negative, Urine Urobilinogen Normal, Ur Leukocyte Esterase 25 H, Urine RBC 0-5 SEEN, Urine WBC 0-5 SEEN 09/02/18 04:28: Magnesium 1.3 L, Troponin I < 0.015, Triglycerides 132, Cholesterol 176, LDL Cholesterol 98, VLDL Cholesterol 26, HDL Cholesterol 52 09/02/18 07:00: Troponin I < 0.015 Rhythm: EKG: Supraventricular tachycardia with a rate of 136 bpm. Follow-up EKG demonstrates normal sinus rhythm with a rate of 80 bpm and a first-degree AV block. ECHO: Stress Test: Cardiac Cath: PCI: CT Surgery: Holter monitor: EPS: PPM: CXR: Chest CT Scan: Assessment/Plan 1. Paroxysmal atrial fibrillation * He presents with palpitations and is noted to have paroxysmal supraventricular tachyarrhythmia. * He has converted back to sinus rhythm and the plan will be to continue him on the current medical therapy * The underlying cause of his fever should be evaluated. * An echocardiogram should be performed to assess his left ventricular function.
[2018-09-02] MEDS: guaiFENesin 1,200 MG Tablet 1200 MG PO ×2 (10:28→21:34)
[2018-09-02] MEDS: Famotidine 20 MG Tablet PO ×2 (10:28→21:34)
[2018-09-02] MEDS: Tamsulosin HCl 0.4 MG Capsule PO (10:28)
[2018-09-02] MEDS: Smz/Tmp Ds Tablet 1 TABLET PO (10:28)
[2018-09-02] MEDS: Multivitamins,Therapeutic Tablet 1 TABLET PO (10:28)
[2018-09-02] MEDS: Ursodiol 250 MG Tablet 750 MG PO ×2 (10:28→21:34)
[2018-09-02] MEDS: Acyclovir 200 MG Capsule 400 MG PO ×2 (10:28→21:35)
[2018-09-02] MEDS: Enoxaparin 40 MG/0.4 ML Syringe SC (10:29)
[2018-09-02] MEDS: Tacrolimus Anhydrous 1 MG Capsule 6 MG PO ×2 (10:29→21:34)
[2018-09-02] MEDS: Metoprolol(XL)Succ 25 MG Tablet PO (10:29)
--- NOTE | 2018-09-02 10:41 | NURSING ---
Was asked to see patient for any ileostomy issues. in to talk to patient and . states patient has had ostomy since 2013. they get supplies through [facility]. both deny needs to assistance at this time. pt is self sufficient with care.
[2018-09-02] MEDS: RIFAMPIN 150 MG CAPSULE PO ×2 (12:16→21:24)
--- NOTE | 2018-09-02 15:13 | CT_ITS ---
STUDY: CT ABDOMEN AND PELVIS WITHOUT CONTRAST REASON FOR EXAM: Male, 68 years old. Bacteremia, fever x3 days RADIATION DOSAGE (If Supplied By Facility): CTDIvol = ( 14.74 ) mGy, DLP = ( 817.82 ) mGycm TECHNIQUE: Transaxial images were obtained from the dome of the diaphragm to the symphysis pubis with oral contrast, and without intravenous contrast. Sagittal and coronal images were reconstructed. Individualized dose optimization techniques were used for this CT. COMPARISON: Previous study of 11/17/2015 FINDINGS: There is a small calcified granuloma of the left lower lobe. The visualized portions of the heart are within normal limits. There are several tiny air densities in the central intrahepatic biliary tree appearing similar to the previous study. Left portal vein prominence is again noted there is a 1.7 cm left hepatic lobe cyst, slightly decreased in size in the interval. Normal spleen. Normal pancreas. Normal bilateral adrenal glands. There is a nonobstructing 3 mm calculus of the right kidney. Normal left kidney. Normal visualized stomach. There is a right pelvic ostomy. Status post colectomy changes are evident. There is non-visualization of the appendix. There are calcified plaques of the abdominal aorta. Normal inferior vena cava. Normal retroperitoneum. Normal urinary bladder. The prostate is mildly enlarged. The seminal vesicles and seminal vesicle angles are normal. There is a small umbilical hernia containing fat. There are small bilateral fat-containing inguinal hernias. There are degenerative changes of the visualized thoracolumbar spine. There is a well-defined thin sclerotic focus of the right ilium, stable in the interval. CT/Abdomen/Pel W ORAL Cont Only IMPRESSION: 1. Several tiny air density seen in the central intrahepatic biliary tree appearing similar to the previous study. Left portal vein prominence is again noted. 2. 1.7 cm left hepatic lobe cyst, decreased in size in the interval. 3. Nonobstructing 3 mm calculus of the right kidney. 4. Status post colectomy. Right pelvic ostomy. 5. Mildly enlarged prostate. 6. Small fat-containing umbilical hernia and small bilateral fat-containing inguinal hernias. Electronically Signed: Michael Anders MD at 19:31 EDT , Service support ,
--- NOTE | 2018-09-02 16:44 | CON.PCM_ITS ---
Problem List (1) Bacteremia due to Gram-negative bacteria Status: Acute Reason for Consult: fever Consulted by: Dr. Wolfe History of Present Illness: The patient is a 68 year old M with h/o liver transplant at [facility], complicated by PTLD requiring colectomy, who presented with one day of fever to 102, some loose stool, fatigue, L shoulder pain. Was around granddaughter over the weekend who had a URI. No rash, no myalgias, no blood in ostomy. Mild headache, some congestion. Feeling better, now bcx with GNR, zosyn and CT ordered. 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) CKD (chronic kidney disease) stage 2, GFR 60-89 ml/min (Chronic) PAF (paroxysmal atrial fibrillation) (Chronic) GERD (gastroesophageal reflux disease) (Chronic) Allergies/Adverse Reactions: Allergies acetaminophen [From Tylenol] Allergy (Verified 09/01/18 22:59) Itching morphine Allergy (Verified 09/01/18 22:59) Shortness of breath naltrexone Allergy (Verified 09/01/18 22:59) Shortness of breath naproxen sodium [From Aleve] Allergy (Verified 09/01/18 22:59) Itching aspirin Adverse Reaction (Verified 09/01/18 22:59) Other DUE TO LIVER Home Medications: Ambulatory Orders Medication Instructions Recorded Ondansetron [Zofran Odt] 4 mg PO Q8H PRN PRN #10 tab 11/09/15 Acyclovir 400 mg PO BID 11/17/15 Cholecalciferol (VIT D3) [Vitamin 2,000 unit PO BID 11/17/15 D3] Multivitamin [Daily Multiple 1 ea PO DAILY 11/17/15 Vitamin] Ranitidine [Zantac] 150 mg PO BID 11/17/15 Rifampin [Rifadin] 150 mg PO BID 11/17/15 Smz/Tmp Ds [Bactrim Ds] 1 tab PO MOWEFR 11/17/15 Temazepam 15 mg PO QHS PRN PRN 11/17/15 Ursodiol [Elsa] 750 mg PO BID 11/17/15 tacrolimus 1 mg capsule 6 mg PO Q12H 06/11/18 tamsulosin 0.4 mg capsule 0.4 mg PO DAILY 06/11/18 Metoprolol(XL)Succ [Toprol Xl 25 mg PO DAILY 09/01/18 (Beta Cheri)] - Social History Tobacco Use: non-smoker Vital Signs Temp Pulse Resp BP Pulse Ox 98.2 F 72 16 118/62 94 09/02/18 16:07 09/02/18 16:07 09/02/18 16:07 09/02/18 16:07 09/02/18 16:07 Oxygen Flow Rate (L/min) 2 Oxygen Delivery Method Room Air Weight: 106.7 kg Body Mass Index (BMI) 25.8 Microbiology Past 72 Hours 09/01/18 22:58 Blood Culture - Preliminary Blood Culture (Wb) - Anticubital Right 09/02/18 05:00 Respiratory Panel (PCR) - Final Mucosa - Nose Laboratory Tests Past 24 Hrs 09/01/18 09/01/18 09/01/18 22:58 22:58 22:58 WBC 10.3 RBC 4.89 Hgb 15.4 Hct 46.0 MCV 94.1 H MCH 31.5 MCHC 33.5 RDW 13.5 RDW Differential 46.5 H Plt Count 138 L MPV 10.7 Immature Gran % (Auto) 0.100 Neut % (Auto) 73.1 H Lymph % (Auto) 12.2 L [place] % (Auto) 13.6 H Eos % (Auto) 0.9 Baso % (Auto) 0.1 Absolute Neuts (auto) 7.5 Absolute Lymphs (auto) 1.26 Total Counted Not Reportable ESR PT 14.2 INR 1.1 APTT 30.2 D-Dimer Quant (PE/DVT) 0.31 Sodium 135 L Potassium 4.1 Chloride 105 Carbon Dioxide 22.0 Anion Gap 8 BUN 14 Creatinine 1.43 H Estim Creat Clear Calc 68.07 Est GFR (MDRD) Af Amer 63 Est GFR (MDRD) Non-Af 52 L BUN/Creatinine Ratio 9.8 L Glucose 120 H Lactic Acid Calcium 8.7 Magnesium Total Bilirubin 1.40 H AST 27 ALT 31 Alkaline Phosphatase 96 Troponin I C-React Prot Ext Range Total Protein 7.5 Albumin 3.7 Globulin 3.8 Albumin/Globulin Ratio 1.0 Triglycerides Cholesterol LDL Cholesterol VLDL Cholesterol HDL Cholesterol Lipase 316 TSH Urine Color Urine Clarity Urine pH Ur Specific [place] Urine Protein Urine Glucose (UA) Urine Ketones Urine Occult Blood Urine Nitrite Urine Bilirubin Urine Urobilinogen Ur Leukocyte Esterase Urine RBC Urine WBC Ur Squamous Epith Cells Urine Bacteria Urine Mucus Enterovirus RNA (PCR) 09/01/18 09/01/18 09/02/18 22:58 22:58 00:35 WBC RBC Hgb Hct MCV MCH MCHC RDW RDW Differential Plt Count MPV Immature Gran % (Auto) Neut % (Auto) Lymph % (Auto) [place] % (Auto) Eos % (Auto) Baso % (Auto) Absolute Neuts (auto) Absolute Lymphs (auto) Total Counted ESR PT INR APTT D-Dimer Quant (PE/DVT) Sodium Potassium Chloride Carbon Dioxide Anion Gap BUN Creatinine Estim Creat Clear Calc Est GFR (MDRD) Af Amer Est GFR (MDRD) Non-Af BUN/Creatinine Ratio Glucose Lactic Acid 1.8 Calcium Magnesium Total Bilirubin AST ALT Alkaline Phosphatase Troponin I < 0.015 C-React Prot Ext Range Total Protein Albumin Globulin Albumin/Globulin Ratio Triglycerides Cholesterol LDL Cholesterol VLDL Cholesterol HDL Cholesterol Lipase TSH Urine Color Yellow Urine Clarity Sl. Cloudy Urine pH 5.0 Ur Specific [place] 1.020 Urine Protein 15 H Urine Glucose (UA) Normal Urine Ketones 5 H Urine Occult Blood 50 H Urine Nitrite Negative Urine Bilirubin Negative Urine Urobilinogen Normal Ur Leukocyte Esterase 25 H Urine RBC 0-5 SEEN Urine WBC 0-5 SEEN Ur Squamous Epith Cells 0-5 SEEN Urine Bacteria RARE Urine Mucus 1+ Enterovirus RNA (PCR) 09/02/18 09/02/18 09/02/18 04:28 04:28 04:45 WBC RBC Hgb Hct MCV MCH MCHC RDW RDW Differential Plt Count MPV Immature Gran % (Auto) Neut % (Auto) Lymph % (Auto) [place] % (Auto) Eos % (Auto) Baso % (Auto) Absolute Neuts (auto) Absolute Lymphs (auto) Total Counted ESR 9 PT INR APTT D-Dimer Quant (PE/DVT) Sodium Potassium Chloride Carbon Dioxide Anion Gap BUN Creatinine Estim Creat Clear Calc Est GFR (MDRD) Af Amer Est GFR (MDRD) Non-Af BUN/Creatinine Ratio Glucose Lactic Acid Calcium Magnesium 1.3 L Total Bilirubin AST ALT Alkaline Phosphatase Troponin I < 0.015 C-React Prot Ext Range 61.80 H Total Protein Albumin Globulin Albumin/Globulin Ratio Triglycerides 132 Cholesterol 176 LDL Cholesterol 98 VLDL Cholesterol 26 HDL Cholesterol 52 Lipase TSH 0.68 Urine Color Urine Clarity Urine pH Ur Specific [place] Urine Protein Urine Glucose (UA) Urine Ketones Urine Occult Blood Urine Nitrite Urine Bilirubin Urine Urobilinogen Ur Leukocyte Esterase Urine RBC Urine WBC Ur Squamous Epith Cells Urine Bacteria Urine Mucus Enterovirus RNA (PCR) Pending 09/02/18 09/02/18 07:00 10:00 WBC RBC Hgb Hct MCV MCH MCHC RDW RDW Differential Plt Count MPV Immature Gran % (Auto) Neut % (Auto) Lymph % (Auto) [place] % (Auto) Eos % (Auto) Baso % (Auto) Absolute Neuts (auto) Absolute Lymphs (auto) Total Counted ESR PT INR APTT D-Dimer Quant (PE/DVT) Sodium Potassium Chloride Carbon Dioxide Anion Gap BUN Creatinine Estim Creat Clear Calc Est GFR (MDRD) Af Amer Est GFR (MDRD) Non-Af BUN/Creatinine Ratio Glucose Lactic Acid Calcium Magnesium Total Bilirubin AST ALT Alkaline Phosphatase Troponin I < 0.015 < 0.015 C-React Prot Ext Range Total Protein Albumin Globulin Albumin/Globulin Ratio Triglycerides Cholesterol LDL Cholesterol VLDL Cholesterol HDL Cholesterol Lipase TSH Urine Color Urine Clarity Urine pH Ur Specific [place] Urine Protein Urine Glucose (UA) Urine Ketones Urine Occult Blood Urine Nitrite Urine Bilirubin Urine Urobilinogen Ur Leukocyte Esterase Urine RBC Urine WBC Ur Squamous Epith Cells Urine Bacteria Urine Mucus Enterovirus RNA (PCR) - Other Studies Radiology: [] reviewed Other Studies: [] Route of nutrition/ use of supplements: [] Nutritional Intake: [] IV Site: [] Delgado Catheter: [] - Physical Exam General: Alert, Oriented x3, Cooperative, No apparent distress HEENT: Atraumatic, PERRLA, EOMI Neck: Supple, No Nodes Lungs: Clear to auscultation, Normal air movement Cardiovascular: Regular rate, Regular Rhythm, No murmurs Abdomen: Soft, Non Tender, Non-Distended, - - ostomy in place Extremities: No edema Skin: No rashes IV Site: Peripheral, without redness Musculoskeletal: No Tenderness to Palpation of Joints or Extremities Neurological: Cranial nerves II-XII grossly intact - Assessment/Plan Antibiotics: [] Assessment/Plan: [] Active and Suspected Problems (Last Reviewed 09/02/18 @ 04:00 by Tomas Calderon MD) Chest pain (Acute) GNR bacteremia - zosyn being started, CT pending. Suspect GI source. Resp viral panel neg. liver transplant - on immunosuppression, bactrim, rifampin, acyclovir. Will follow, thank you.
--- NOTE | 2018-09-02 16:55 | PN_ITS ---
Addendum entered and electronically signed by KATHERYN Ramirez 09/02/18 16:57: Code Visit dvt ppx covered with lovenox. Original Note: Patient Problems: Active and Suspected Problems (Last Reviewed 09/02/18 @ 04:00 by Tomas Calderon MD) Chest pain (Acute) Bacteremia due to Gram-negative bacteria (Acute) Subjective: Pt resting comfortably in bed. He has no CP/SOB at this time. He has no palp, no dizziness/LH. He has been feeling ill lately complaining of sinus congestion and cough. No fever/chills. He has also had watery high volume output from his ostomy. He states he no longer follows a doctor for his liver transplant - just has routine blood work drawn periodically. - Physical Exam General: Alert, Oriented x3, Cooperative HEENT: Atraumatic, PERRLA, EOMI, Normocephalic Neck: Supple, No JVD, Negative Carotid Bruits Lungs: Clear to auscultation, Normal air movement Cardiovascular: Regular rate, No murmurs Abdomen: Bowel Sounds Present, Soft, Non Tender Extremities: No edema, Capillary Refill Less than 3 Seconds Skin: No rashes, No breakdown Musculoskeletal: No Tenderness to Palpation of Joints or Extremities Neurological: Cranial nerves II-XII grossly intact Psych/Mental Status: Normal Affect, Appropriate, Alert and oriented to time, place, person, mood and affect Vital Signs Temp Pulse Resp BP Pulse Ox 98.2 F 72 16 118/62 94 09/02/18 16:07 09/02/18 16:07 09/02/18 16:07 09/02/18 16:07 09/02/18 16:07 Oxygen Flow Rate (L/min) 2 Oxygen Delivery Method Room Air Weight: 235 lb 3.732 oz Body Mass Index (BMI) 25.8 Intake and Output for Last 24 Hours 08/31/18 09/01/18 09/02/18 22:59 23:59 23:59 Intake Total 537 / 537 Balance 537 / 537 Microbiology Past 72 Hours 09/01/18 22:58 Blood Culture - Preliminary Blood Culture (Wb) - Anticubital Right 09/02/18 05:00 Respiratory Panel (PCR) - Final Mucosa - Nose Laboratory Tests Past 24 Hrs 09/01/18 09/01/18 09/01/18 22:58 22:58 22:58 WBC 10.3 RBC 4.89 Hgb 15.4 Hct 46.0 MCV 94.1 H MCH 31.5 MCHC 33.5 RDW 13.5 RDW Differential 46.5 H Plt Count 138 L MPV 10.7 Immature Gran % (Auto) 0.100 Neut % (Auto) 73.1 H Lymph % (Auto) 12.2 L [place] % (Auto) 13.6 H Eos % (Auto) 0.9 Baso % (Auto) 0.1 Absolute Neuts (auto) 7.5 Absolute Lymphs (auto) 1.26 Total Counted Not Reportable ESR PT 14.2 INR 1.1 APTT 30.2 D-Dimer Quant (PE/DVT) 0.31 Sodium 135 L Potassium 4.1 Chloride 105 Carbon Dioxide 22.0 Anion Gap 8 BUN 14 Creatinine 1.43 H Estim Creat Clear Calc 68.07 Est GFR (MDRD) Af Amer 63 Est GFR (MDRD) Non-Af 52 L BUN/Creatinine Ratio 9.8 L Glucose 120 H Lactic Acid Calcium 8.7 Magnesium Total Bilirubin 1.40 H AST 27 ALT 31 Alkaline Phosphatase 96 Troponin I C-React Prot Ext Range Total Protein 7.5 Albumin 3.7 Globulin 3.8 Albumin/Globulin Ratio 1.0 Triglycerides Cholesterol LDL Cholesterol VLDL Cholesterol HDL Cholesterol Lipase 316 TSH Urine Color Urine Clarity Urine pH Ur Specific [place] Urine Protein Urine Glucose (UA) Urine Ketones Urine Occult Blood Urine Nitrite Urine Bilirubin Urine Urobilinogen Ur Leukocyte Esterase Urine RBC Urine WBC Ur Squamous Epith Cells Urine Bacteria Urine Mucus Enterovirus RNA (PCR) 09/01/18 09/01/18 09/02/18 22:58 22:58 00:35 WBC RBC Hgb Hct MCV MCH MCHC RDW RDW Differential Plt Count MPV Immature Gran % (Auto) Neut % (Auto) Lymph % (Auto) [place] % (Auto) Eos % (Auto) Baso % (Auto) Absolute Neuts (auto) Absolute Lymphs (auto) Total Counted ESR PT INR APTT D-Dimer Quant (PE/DVT) Sodium Potassium Chloride Carbon Dioxide Anion Gap BUN Creatinine Estim Creat Clear Calc Est GFR (MDRD) Af Amer Est GFR (MDRD) Non-Af BUN/Creatinine Ratio Glucose Lactic Acid 1.8 Calcium Magnesium Total Bilirubin AST ALT Alkaline Phosphatase Troponin I < 0.015 C-React Prot Ext Range Total Protein Albumin Globulin Albumin/Globulin Ratio Triglycerides Cholesterol LDL Cholesterol VLDL Cholesterol HDL Cholesterol Lipase TSH Urine Color Yellow Urine Clarity Sl. Cloudy Urine pH 5.0 Ur Specific [place] 1.020 Urine Protein 15 H Urine Glucose (UA) Normal Urine Ketones 5 H Urine Occult Blood 50 H Urine Nitrite Negative Urine Bilirubin Negative Urine Urobilinogen Normal Ur Leukocyte Esterase 25 H Urine RBC 0-5 SEEN Urine WBC 0-5 SEEN Ur Squamous Epith Cells 0-5 SEEN Urine Bacteria RARE Urine Mucus 1+ Enterovirus RNA (PCR) 09/02/18 09/02/18 09/02/18 04:28 04:28 04:45 WBC RBC Hgb Hct MCV MCH MCHC RDW RDW Differential Plt Count MPV Immature Gran % (Auto) Neut % (Auto) Lymph % (Auto) [place] % (Auto) Eos % (Auto) Baso % (Auto) Absolute Neuts (auto) Absolute Lymphs (auto) Total Counted ESR 9 PT INR APTT D-Dimer Quant (PE/DVT) Sodium Potassium Chloride Carbon Dioxide Anion Gap BUN Creatinine Estim Creat Clear Calc Est GFR (MDRD) Af Amer Est GFR (MDRD) Non-Af BUN/Creatinine Ratio Glucose Lactic Acid Calcium Magnesium 1.3 L Total Bilirubin AST ALT Alkaline Phosphatase Troponin I < 0.015 C-React Prot Ext Range 61.80 H Total Protein Albumin Globulin Albumin/Globulin Ratio Triglycerides 132 Cholesterol 176 LDL Cholesterol 98 VLDL Cholesterol 26 HDL Cholesterol 52 Lipase TSH 0.68 Urine Color Urine Clarity Urine pH Ur Specific [place] Urine Protein Urine Glucose (UA) Urine Ketones Urine Occult Blood Urine Nitrite Urine Bilirubin Urine Urobilinogen Ur Leukocyte Esterase Urine RBC Urine WBC Ur Squamous Epith Cells Urine Bacteria Urine Mucus Enterovirus RNA (PCR) Pending 09/02/18 09/02/18 07:00 10:00 WBC RBC Hgb Hct MCV MCH MCHC RDW RDW Differential Plt Count MPV Immature Gran % (Auto) Neut % (Auto) Lymph % (Auto) [place] % (Auto) Eos % (Auto) Baso % (Auto) Absolute Neuts (auto) Absolute Lymphs (auto) Total Counted ESR PT INR APTT D-Dimer Quant (PE/DVT) Sodium Potassium Chloride Carbon Dioxide Anion Gap BUN Creatinine Estim Creat Clear Calc Est GFR (MDRD) Af Amer Est GFR (MDRD) Non-Af BUN/Creatinine Ratio Glucose Lactic Acid Calcium Magnesium Total Bilirubin AST ALT Alkaline Phosphatase Troponin I < 0.015 < 0.015 C-React Prot Ext Range Total Protein Albumin Globulin Albumin/Globulin Ratio Triglycerides Cholesterol LDL Cholesterol VLDL Cholesterol HDL Cholesterol Lipase TSH Urine Color Urine Clarity Urine pH Ur Specific [place] Urine Protein Urine Glucose (UA) Urine Ketones Urine Occult Blood Urine Nitrite Urine Bilirubin Urine Urobilinogen Ur Leukocyte Esterase Urine RBC Urine WBC Ur Squamous Epith Cells Urine Bacteria Urine Mucus Enterovirus RNA (PCR) Medical Necessity - Tobacco Use Smoking Status: Never smoker Assessment/Plan All Active Problems (Last Reviewed 09/02/18 @ 04:00 by Tomas Claderon MD) Chest pain (Acute) Bacteremia due to Gram-negative bacteria (Acute) Chest pain, unspecified (Acute) 1. Chest pain - cardiology workup deferred given fever and probably infection. 2. Fever unknown origin in the setting of immunocompromised state/liver transplant - [id number]. suspect GI origin as blood culture shows GNR and he has high volume water output from his ostomy. Resp panel negative. Stool workup pending. Trend ostomy intake and output. Await final cultures. Infectious disease consulted. Continue Zosyn. A family member recently had diarrhea. He does have a hx of ulcerative colitis. 3. Hypomagnesemia - 4 g IV given. 4. PAfib with RVR - now SR. Toprol. -Echo with EF 55%, st1 diastolic dysfxn, 1+ tvi, PASP 30mmHg 5. DMt2 - diet controlled. 6. Hx liver transplant - 20 years prior. on prophylactic medications including acyclovir, bactrim, rifampin, also on prograf. 7. BPH - flomax 8. Insomnia - restoril DVT ppx: DC planning: pending infectious workup This patient was seen by Noman Mehta PA-C under the supervision of Dr. Wolfe
[2018-09-02] MEDS: Temazepam 15 MG Capsule PO (21:23)
[2018-09-03] VITALS (12 sets, daily range): BP systolic 110–135; BP diastolic 60–70; PULSE 58–94; RESP 16–18; TEMP 36.5–37.7; O2SAT 95–97
[2018-09-03] MEDS: Ibuprofen 400 MG Tablet PO ×2 (00:12→21:27)
[2018-09-03] MEDS: 0.9% NaCl Peripheral Flush Adult/Peds IV ×2 (00:13→06:09)
[2018-09-03 06:58] LABS: Absolute Lymphocyte Count 1.09 X10^3/ul (0.83-4.51); Absolute Neutrophil Count 3.7 X10^3/uL (2.0-7.7); Basophil# 0.02 X10^3/uL; Basophil% 0.3 % (0-1); Eosinophil# 0.12 X10^3/uL; Eosinophils% 2.1 % (0-5); Hematocrit 42.7 % (40-54); Hemoglobin 14.4 g/dl (13.0-16.5); Lymphocyte # 1.09 X10^3/ul (4.0); Lymphocyte % 18.9 % (19-41); Mean Corp Hgb Conc 33.7 g/gl (32-36); Mean Corpuscular Hgb 31.9 pg (27.0-32.0); Mean Corpuscular Volume 94.5 fL (80-94); Mean Platelet Vol. 11.1 fl (6.2-12.0); Monocyte# 0.87 X10^3/uL; Monocyte% 15.1 % (0-10); Neutrophil # 3.68 X10^3/uL (2.7-7.7); Neutrophil % 63.6 % (47-70); Platelet Count 112 K/mm3 (150-450); RBC Distribution Width CV 13.4 % (11.6-14.6); RBC Distribution Width SD 44.7 fl (35.1-43.9); Red Blood Count 4.52 M/mm3 (4.6-6.2); White Blood Count 5.8 K/mm3 (4.4-11.0)
[2018-09-03 07:03] LABS: POSITIVE COUNT NO; POSITIVE DIFFERENTIAL NO; POSITIVE MORPHOLOGY NO
[2018-09-03 07:27] LABS: Anion Gap 11 (5-15); BUN 14 mg/dL (7-18); BUN/Creat Ratio 10.5 RATIO (10-20); Calcium,Total 8.5 mg/dL (8.5-10.1); Chloride 108 mmol/L (98-107); Creatinine, Serum 1.33 mg/dL (0.70-1.30); EST Glomerular Filtration Rate 57 mL/min (>60); Est Glom Filt Rate - Afr Amer 69 mL/min (>60); Estimated Creatinine Clearance 73.18 ml/min; Glucose 124 mg/dL (74-106); Magnesium 2.1 mg/dL (1.6-2.6); Potassium 4.4 mmol/L (3.5-5.1); Sodium Level 140 mmol/L (136-145)
--- NOTE | 2018-09-03 08:21 | PN.CARD_ITS ---
Subjectve: Patient seen and evaluated. Appears to be doing better at this time. Objective: Vital Signs Temp Pulse Resp BP Pulse Ox 97.7 F L 58 L 18 118/66 96 09/03/18 03:40 09/03/18 07:00 09/03/18 03:40 09/03/18 03:40 09/03/18 03:40 Oxygen Flow Rate (L/min) 2 Oxygen Delivery Method Room Air Weight: 235 lb 3.732 oz Body Mass Index (BMI) 25.8 Intake and Output for Last 24 Hours 09/01/18 09/02/18 09/03/18 23:59 23:59 23:59 Intake Total 1093.2 / 1093.2 Balance 1093.2 / 1093.2 General: Awake, Alert, Oriented x 3 HEENT: PERRL, EOMI, Sclera Non Icteric Neck: Supple, Good ROM, No Lymph Node Enlargement Lungs: Clear to auscultation Cardiovascular: Regular Rhythm, Normal S1, Normal S2, No Murmurs, No Rubs, No Gallops Vascular: No Carotid Bruits, Normal Femoral Pulses, Normal Radial Pulses, Normal Dorsalis Pedal Pulse, Normal Posterior Tibial Pulses Abdomen: Bowel Sounds Present, Soft, Non Tender, No HSM, No Organomegaly Extremities: No Cyanosis, No Clubbing, No edema Musculoskeletal: No Erythema Lymphatic: No Lymph Node Enlargement Neurological: No Focal Motor or Sensory Deficit 09/02/18 10:00: Troponin I < 0.015 09/03/18 06:00: WBC 5.8, RBC 4.52 L, Hgb 14.4, Hct 42.7, MCV 94.5 H, MCH 31.9, MCHC 33.7, RDW 13.4, RDW Differential 44.7 H, Plt Count 112 L, MPV 11.1, Immature Gran % (Auto) 0.000, Neut % (Auto) 63.6, Lymph % (Auto) 18.9 L, [place] % (Auto) 15.1 H, Eos % (Auto) 2.1, Baso % (Auto) 0.3, Absolute Neuts (auto) 3.7, Total Counted Not Reportable 09/03/18 06:00: Sodium 140, Potassium 4.4, Chloride 108 H, Carbon Dioxide 21.0, Anion Gap 11, BUN 14, Creatinine 1.33 H, Est GFR (MDRD) Af Amer 69, Est GFR (MDRD) Non-Af 57 L, BUN/Creatinine Ratio 10.5, Glucose 124 H, Calcium 8.5, Magnesium 2.1 Rhythm: EKG: ECHO: Stress Test: Cardiac Cath: PCI: CT Surgery: Holter monitor: EPS: PPM: CXR: Chest CT Scan: Medical Necessity - Tobacco Use Smoking Status: Never smoker Assessment/Plan 1. Paroxysmal atrial fibrillation * He presents with palpitations and is noted to have paroxysmal supraventricular tachyarrhythmia. * He has converted back to sinus rhythm and the plan will be to continue him on the current medical therapy * The underlying cause of his fever should be evaluated. * His echocardiogram demonstrated overall preserved left ventricular systolic function. At this time I do not think that we should anticoagulate him. * * Thank you for allowing me to participate in the care of your patient. Please don't hesitate to call if any issues arise
[2018-09-03] MEDS: Acyclovir 200 MG Capsule 400 MG PO ×2 (09:03→21:29)
[2018-09-03] MEDS: Tamsulosin HCl 0.4 MG Capsule PO (09:03)
[2018-09-03] MEDS: Famotidine 20 MG Tablet PO ×2 (09:03→21:28)
[2018-09-03] MEDS: Metoprolol(XL)Succ 25 MG Tablet PO (09:03)
[2018-09-03] MEDS: Multivitamins,Therapeutic Tablet 1 TABLET PO (09:03)
[2018-09-03] MEDS: Ursodiol 250 MG Tablet 750 MG PO ×2 (09:03→21:29)
[2018-09-03] MEDS: guaiFENesin 1,200 MG Tablet 1200 MG PO ×2 (09:05→21:28)
[2018-09-03] MEDS: Enoxaparin 40 MG/0.4 ML Syringe SC (09:05)
[2018-09-03] MEDS: Tacrolimus Anhydrous 1 MG Capsule 6 MG PO ×2 (09:06→21:28)
[2018-09-03] MEDS: RIFAMPIN 150 MG CAPSULE PO ×2 (09:08→21:28)
--- NOTE | 2018-09-03 10:44 | PCM.PN.ID ---
Patient Problems: Active and Suspected Problems (Last Reviewed 09/02/18 @ 04:00 by Tomas Calderon MD) Chest pain (Acute) Bacteremia due to Gram-negative bacteria (Acute) Subjective: Feeling better. No fever, but did have sweats overnight. No abd pain, no cough or SOB. Stool still loose compared to normal. - Physical Exam General: Alert, Cooperative, No apparent distress Lungs: Clear to auscultation, Normal air movement Cardiovascular: Regular rate, Regular Rhythm Abdomen: Soft, Non Tender, Non-Distended Skin: No rashes Vital Signs Temp Pulse Resp BP Pulse Ox 98.0 F 76 16 135/70 H 95 09/03/18 08:57 09/03/18 09:03 09/03/18 08:57 09/03/18 08:57 09/03/18 08:57 Oxygen Flow Rate (L/min) 2 Oxygen Delivery Method Room Air Weight: 106.7 kg Body Mass Index (BMI) 25.8 Intake and Output for Last 24 Hours 09/01/18 09/02/18 09/03/18 23:59 23:59 23:59 Intake Total 1093.2 / 1093.2 Balance 1093.2 / 1093.2 Microbiology Past 72 Hours 09/01/18 22:58 Blood Culture - Preliminary Blood Culture (Wb) - Anticubital Right GNR lactose chummer 09/02/18 16:15 Stool Lactoferrin - Final Stool 09/02/18 05:00 Respiratory Panel (PCR) - Final Mucosa - Nose Laboratory Tests Past 24 Hrs 09/03/18 09/03/18 06:00 06:00 WBC 5.8 RBC 4.52 L Hgb 14.4 Hct 42.7 MCV 94.5 H MCH 31.9 MCHC 33.7 RDW 13.4 RDW Differential 44.7 H Plt Count 112 L MPV 11.1 Immature Gran % (Auto) 0.000 Neut % (Auto) 63.6 Lymph % (Auto) 18.9 L [place] % (Auto) 15.1 H Eos % (Auto) 2.1 Baso % (Auto) 0.3 Absolute Neuts (auto) 3.7 Absolute Lymphs (auto) 1.09 Total Counted Not Reportable Sodium 140 Potassium 4.4 Chloride 108 H Carbon Dioxide 21.0 Anion Gap 11 BUN 14 Creatinine 1.33 H Estim Creat Clear Calc 73.18 Est GFR (MDRD) Af Amer 69 Est GFR (MDRD) Non-Af 57 L BUN/Creatinine Ratio 10.5 Glucose 124 H Calcium 8.5 Magnesium 2.1 Medical Necessity - Tobacco Use Smoking Status: Never smoker Route of nutrition/ use of supplements: [] Nutritional Intake: [] IV Site: [] Delgado Catheter: [] - Assessment/Plan Antibiotics: [] Assessment/Plan: [] Active and Suspected Problems (Last Reviewed 09/02/18 @ 04:00 by Tomas Calderon MD) Chest pain (Acute) GNR bacteremia - improved, continue zosyn, CT showed no focal source of infection. Possible gut translocation. Repeat bcx today. Goal will be home in next 1-2 days on po abx depending on further cx results. liver transplant - on immunosuppression, bactrim, rifampin, acyclovir. Will follow
--- NOTE | 2018-09-03 12:12 | NURSING ---
Pt requesting that his ileostomy appliance be changed since his normally changes the appliance on Sunday's and Sunday's. Pt was hoping to have been discharged and was going to have his change the appliance at home. pt states that doctor told him he would be here another day or two. removed current appliance. peristomal skin is intact. stoma is pink and slightly protruding. measures approx 1 1/4. applied a 2 piece flat Andrea appliance with an [place] ring per patient request. pt denies further needs at this time.
--- NOTE | 2018-09-03 13:22 | PCM.PROGNOTE ---
Patient Problems: Active and Suspected Problems (Last Reviewed 09/02/18 @ 04:00 by Tomas Calderon MD) Chest pain (Acute) Bacteremia due to Gram-negative bacteria (Acute) Subjective: No cough, sob, abdominal pain, no n/v. Ostomy output is watery, he thinks it is slowing down. No further fevers, no chills. He states his PCP told him his fevers are from his thyroid. TSH is normal. - Physical Exam General: Alert, Oriented x3, Cooperative HEENT: Atraumatic, PERRLA, EOMI, Normocephalic Neck: Supple, No JVD, Negative Carotid Bruits Lungs: Clear to auscultation, Normal air movement Cardiovascular: Regular rate, No murmurs Abdomen: Bowel Sounds Present, Soft, Non Tender Extremities: No edema, Capillary Refill Less than 3 Seconds Skin: No rashes, No breakdown Musculoskeletal: No Tenderness to Palpation of Joints or Extremities Neurological: Cranial nerves II-XII grossly intact Psych/Mental Status: Normal Affect, Appropriate, Alert and oriented to time, place, person, mood and affect Vital Signs Temp Pulse Resp BP Pulse Ox 98.0 F 76 16 135/70 H 95 09/03/18 08:57 09/03/18 09:03 09/03/18 08:57 09/03/18 08:57 09/03/18 08:57 Oxygen Flow Rate (L/min) 2 Oxygen Delivery Method Room Air Weight: 235 lb 3.732 oz Body Mass Index (BMI) 25.8 Intake and Output for Last 24 Hours 09/01/18 09/02/18 09/03/18 23:59 23:59 23:59 Intake Total 1093.2 / 1093.2 Balance 1093.2 / 1093.2 Microbiology Past 72 Hours 09/01/18 22:58 Blood Culture - Preliminary Blood Culture (Wb) - Anticubital Right GNR 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 09/02/18 16:15 Stool Lactoferrin - Final Stool 09/02/18 05:00 Respiratory Panel (PCR) - Final Mucosa - Nose Laboratory Tests Past 24 Hrs 09/03/18 09/03/18 06:00 06:00 WBC 5.8 RBC 4.52 L Hgb 14.4 Hct 42.7 MCV 94.5 H MCH 31.9 MCHC 33.7 RDW 13.4 RDW Differential 44.7 H Plt Count 112 L MPV 11.1 Immature Gran % (Auto) 0.000 Neut % (Auto) 63.6 Lymph % (Auto) 18.9 L [place] % (Auto) 15.1 H Eos % (Auto) 2.1 Baso % (Auto) 0.3 Absolute Neuts (auto) 3.7 Absolute Lymphs (auto) 1.09 Total Counted Not Reportable Sodium 140 Potassium 4.4 Chloride 108 H Carbon Dioxide 21.0 Anion Gap 11 BUN 14 Creatinine 1.33 H Estim Creat Clear Calc 73.18 Est GFR (MDRD) Af Amer 69 Est GFR (MDRD) Non-Af 57 L BUN/Creatinine Ratio 10.5 Glucose 124 H Calcium 8.5 Magnesium 2.1 Medical Necessity - Tobacco Use Smoking Status: Never smoker Assessment/Plan All Active Problems (Last Reviewed 09/02/18 @ 04:00 by Tomas Calderon MD) Chest pain (Acute) Bacteremia due to Gram-negative bacteria (Acute) Chest pain, unspecified (Acute) 1. Chest pain - cardiology workup deferred given fever and probable infection. 2. GNR bacteremia - ID following. Zosyn. High ostomy output. No other symptoms. Fevers resolved. Repeat blood cultures. -lactoferrin negative -Resp panel neg -enteric panel pending 3. Hypomagnesemia - resolved. 4. PAfib with RVR - now SR. Toprol. -Echo with EF 55%, st1 diastolic dysfxn, 1+ tvi, PASP 30mmHg 5. DMt2 - diet controlled. 6. Hx liver transplant - 20 years prior. on prophylactic medications including acyclovir, bactrim, rifampin, also on prograf. 7. BPH - flomax 8. Insomnia - restoril DVT ppx: Lovenox DC planning: pending blood cultures. This patient was seen by Noman Mehta PA-C under the supervision of Dr. Wolfe
[2018-09-03] MEDS: Temazepam 15 MG Capsule PO (22:10)
[2018-09-04] VITALS (8 sets, daily range): BP systolic 98–123; BP diastolic 55–63; PULSE 59–77; RESP 16–18; TEMP 36.6–36.8; O2SAT 95–97
--- NOTE | 2018-09-04 08:41 | PN.CARD_ITS ---
Subjectve: Patient seen and evaluated. Objective: Vital Signs Temp Pulse Resp BP Pulse Ox 97.8 F 63 16 98/63 97 09/04/18 03:20 09/04/18 07:00 09/04/18 03:20 09/04/18 03:20 09/04/18 08:00 Oxygen Flow Rate (L/min) 2 Oxygen Delivery Method Room Air Weight: 235 lb 3.732 oz Body Mass Index (BMI) 25.8 Intake and Output for Last 24 Hours 09/02/18 09/03/18 09/04/18 23:59 23:59 23:59 Intake Total 1093.2 / 1093.2 335 / 335 116.2 / 116.2 Balance 1093.2 / 1093.2 335 / 335 116.2 / 116.2 General: Awake, Alert, Oriented x 3 HEENT: PERRL, EOMI, Sclera Non Icteric Neck: Supple, Good ROM, No Lymph Node Enlargement Lungs: Clear to auscultation Cardiovascular: Regular Rhythm, Normal S1, Normal S2, No Murmurs, No Rubs, No Gallops Vascular: No Carotid Bruits, Normal Femoral Pulses, Normal Radial Pulses, Normal Dorsalis Pedal Pulse, Normal Posterior Tibial Pulses Abdomen: Bowel Sounds Present, Soft, Non Tender, No HSM, No Organomegaly Extremities: No Cyanosis, No Clubbing, No edema Neurological: No Focal Motor or Sensory Deficit Rhythm: EKG: ECHO: Stress Test: Cardiac Cath: PCI: CT Surgery: Holter monitor: EPS: PPM: CXR: Chest CT Scan: Medical Necessity - Tobacco Use Smoking Status: Never smoker Assessment/Plan 1. Paroxysmal atrial fibrillation * He presents with palpitations and is noted to have paroxysmal supraventricular tachyarrhythmia. * He has converted back to sinus rhythm and the plan will be to continue him on the current medical therapy * The underlying cause of his fever should be evaluated. * His echocardiogram demonstrated overall preserved left ventricular systolic function. At this time I do not think that we should anticoagulate him. * * Thank you for allowing me to participate in the care of your patient. Please don't hesitate to call if any issues arise
[2018-09-04] MEDS: Acyclovir 200 MG Capsule 400 MG PO (08:54)
[2018-09-04] MEDS: Ursodiol 250 MG Tablet 750 MG PO (08:55)
[2018-09-04] MEDS: Famotidine 20 MG Tablet PO (08:55)
[2018-09-04] MEDS: Smz/Tmp Ds Tablet 1 TABLET PO (08:55)
[2018-09-04] MEDS: Multivitamins,Therapeutic Tablet 1 TABLET PO (08:56)
[2018-09-04] MEDS: Metoprolol(XL)Succ 25 MG Tablet PO (08:56)
[2018-09-04] MEDS: guaiFENesin 1,200 MG Tablet 1200 MG PO (08:56)
[2018-09-04] MEDS: RIFAMPIN 150 MG CAPSULE PO (08:56)
[2018-09-04] MEDS: Tamsulosin HCl 0.4 MG Capsule PO (08:56)
[2018-09-04] MEDS: Tacrolimus Anhydrous 1 MG Capsule 6 MG PO (08:57)
--- NOTE | 2018-09-04 10:13 | CASEMGMT ---
This RN CM to room to complete KERN form and pt is sleeping without distress at this time. Pt does not awaken to knock on door or verbal stimuli at this time. This RN CM will attempt again later. SStaten RN CM
--- NOTE | 2018-09-04 11:30 | CASEMGMT ---
RN MURRAY NOTE: To room to talk with pt. @ bedside. Introduced self and role of RN MURRAY. Reviewed KERN form and questions answered. Form signed by pt, copy made and placed on chart, and original given to pt. Pt and made aware to ask for CM if they have any further questions. Yecenia AMADON RN CM
--- NOTE | 2018-09-04 13:12 | PN.ID_ITS ---
Patient Problems: Active and Suspected Problems (Last Reviewed 09/02/18 @ 04:00 by Tomas Calderon MD) Chest pain (Acute) Bacteremia due to Gram-negative bacteria (Acute) Subjective: Feeling well, wants to go home, no fever, no abd pain. - Physical Exam General: Alert, Cooperative, No apparent distress Lungs: Clear to auscultation, Normal air movement Cardiovascular: Regular rate, Regular Rhythm Abdomen: Soft, Non Tender, Non-Distended Skin: No rashes Vital Signs Temp Pulse Resp BP Pulse Ox 98.2 F 77 16 112/63 97 09/04/18 08:51 09/04/18 11:00 09/04/18 08:51 09/04/18 08:56 09/04/18 08:51 Oxygen Flow Rate (L/min) 2 Oxygen Delivery Method Room Air Weight: 106.7 kg Body Mass Index (BMI) 25.8 Intake and Output for Last 24 Hours 09/02/18 09/03/18 09/04/18 23:59 23:59 23:59 Intake Total 1093.2 / 1093.2 335 / 335 500.2 / 500.2 Balance 1093.2 / 1093.2 335 / 335 500.2 / 500.2 Microbiology Past 72 Hours 09/01/18 23:40 Blood Culture - Preliminary Blood Culture (Wb) - Right Hand No growth in 48 hours. 09/01/18 22:58 Blood Culture - Preliminary Blood Culture (Wb) - Anticubital Right GNR lactose transplant registered nurse 09/02/18 16:15 Enteric Bacteriology - Final Stool 09/02/18 16:15 Stool Lactoferrin - Final Stool 09/02/18 05:00 Respiratory Panel (PCR) - Final Mucosa - Nose Medical Necessity - Tobacco Use Smoking Status: Never smoker Route of nutrition/ use of supplements: [] Nutritional Intake: [] IV Site: [] Delgado Catheter: [] - Assessment/Plan Antibiotics: [] Assessment/Plan: [] Active and Suspected Problems (Last Reviewed 09/02/18 @ 04:00 by Tomas Calderon MD) Chest pain (Acute) GNR bacteremia - improved, on zosyn, CT showed no focal source of infection. Possible gut translocation. Repeat bcx remains neg. Discussed risks, he is interested in going home, and I think this would be reasonable. Will give dose of ceftriaxone and then home with one week of omnicef, will call him if abx need to be changed based on further cx data. liver transplant - on immunosuppression, bactrim, rifampin, acyclovir. Will follow
--- NOTE | 2018-09-04 13:20 | DCINST_ITS ---
- Discharge Diagnoses Current Active Problems: Current Active and Chronic Problems (Last Reviewed 09/02/18 @ 04:00 by Tomas Calderon MD) Chest pain (Acute) Bacteremia due to Gram-negative bacteria (Acute) You will use the following diet at home:: Cardiac Your food should be the consistency of: Regular Your liquids should be the consistency of: Regular/Thin Discharge Activity: Return to Normal Activity Allergies/Adverse Reactions: Allergies acetaminophen [From Tylenol] Allergy (Verified 09/01/18 22:59) Itching morphine Allergy (Verified 09/01/18 22:59) Shortness of breath naltrexone Allergy (Verified 09/01/18 22:59) Shortness of breath naproxen sodium [From Aleve] Allergy (Verified 09/01/18 22:59) Itching aspirin Adverse Reaction (Verified 09/01/18 22:59) Other DUE TO LIVER Medications to take at Discharge Ondansetron [Zofran Odt] 4 mg PO Q8H PRN PRN #10 tab 11/09/15 Acyclovir 400 mg PO BID 11/17/15 Cholecalciferol (VIT D3) [Vitamin D3] 2,000 unit PO BID 11/17/15 Multivitamin [Daily Multiple Vitamin] 1 ea PO DAILY 11/17/15 Ranitidine [Zantac] 150 mg PO BID 11/17/15 Rifampin [Rifadin] 150 mg PO BID 11/17/15 Smz/Tmp Ds [Bactrim Ds] 1 tab PO MOWEFR 11/17/15 Temazepam 15 mg PO QHS PRN PRN 11/17/15 Ursodiol [Elsa] 750 mg PO BID 11/17/15 tacrolimus 1 mg capsule 6 mg PO Q12H 06/11/18 tamsulosin 0.4 mg capsule 0.4 mg PO DAILY 06/11/18 Metoprolol(XL)Succ [Toprol Xl (Beta Cheri)] 25 mg PO DAILY 09/01/18 Cefdinir [Omnicef [equiv]] 300 mg PO Q12H #14 capsule 09/04/18 The following prescriptions were given: Cefdinir [Omnicef [equiv]] 300 mg PO Q12H #14 capsule Primary Care Physician: Sudhir Richter MD [Primary Care Provider] - Please follow up with your Primary Care Physician in: 1-2 weeks Test Results: Test results from this visit will be discussed in further detail at your follow- up appointment, if applicable. Please Follow Up With: Denny Doan MD When: Call for appointment Proposed Discharge Date: 09/04/18
--- NOTE | 2018-09-04 13:20 | PCM.DC.SUM ---
Discharge Date and Diagnosis - Problem List Patient Problems: Active and Suspected Problems (Last Reviewed 09/02/18 @ 04:00 by Tomas Calderon MD) Chest pain (Acute) Bacteremia due to Gram-negative bacteria (Acute) Date of Admission: 09/02/18 Date of Discharge: 09/04/18 - Primary Discharge Diagnosis Active and Suspected Problems (Last Reviewed 09/02/18 @ 04:00 by Tomas Calderon MD) Paroxysmal Afib with RVR Chest pain (Acute) Bacteremia due to Gram-negative bacteria (Acute) Hypomagnesemia DMt2 Hx Liver transplant BPH Insomnia presence of ostomy - Secondary Discharge Diagnosis Chronic Problems (Last Reviewed 09/02/18 @ 04:00 by Tomas Calderon MD) Adrenal insufficiency (Chronic) 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 Echo: Interpretation Summary Normal LV size. The estimated ejection fraction is 55 %. Stage 1 diastolic dysfunction. Mild (1+) tricuspid valve insufficiency. Pulmonary artery systolic pressure is 30 mmHg. Compared to previous study, the left ventricular systolic function is the same.. CT/Abdomen/Pel W ORAL Cont Only IMPRESSION: 1. Several tiny air density seen in the central intrahepatic biliary tree appearing similar to the previous study. Left portal vein prominence is again noted. 2. 1.7 cm left hepatic lobe cyst, decreased in size in the interval. 3. Nonobstructing 3 mm calculus of the right kidney. 4. Status post colectomy. Right pelvic ostomy. 5. Mildly enlarged prostate. 6. Small fat-containing umbilical hernia and small bilateral fat-containing inguinal hernias. Consultations 09/02/18 04:00 Consult: Onc/Wound/distribution lead Routine Comment: Reason for Consult:: Patient with colostomy bag Operations: None Procedures: 2-D Echocardiogram Summary of Care Provided: Hospital course: The patient is a 68 year old M with pmhx as above who presented the emergency room with complaints of fever and of episodic 1 minute long chest pain. He was found to be febrile and with SVT. He was given IV fluids and admitted to the PCU on telemetry. Echocardiogram was obtained which was unremarkable. He remained in sinus rhythm without further intervention. Blood cultures were taken given his immune compromised state and his fever, 1 of the blood cultures grew gram-negative rods. He was started on Zosyn and infectious disease was consulted. A CT of the abdomen was obtained and did not show any acute process. He had no recurrence of his fever. Infectious disease switched him to Rocephin for 1 dose, and then advised 7 more days of Omnicef as an outpatient. He was discharged home in stable condition. Cardiology felt that no further workup should be performed while he had an acute infection. Cardiology also indicated that he did not need anticoagulated at this time. He was advised to follow-up with cardiology as an outpatient. He will also need to follow-up with his PCP in 1-2 weeks. This patient was seen by Noman Mehta PA-C under the supervision of Doctor Wolfe. [] Patient Problems: Active and Suspected Problems (Last Reviewed 09/02/18 @ 04:00 by Tomas Calderon MD) Chest pain (Acute) Bacteremia due to Gram-negative bacteria (Acute) - Physical Exam General: Alert, Oriented x3, Cooperative HEENT: Atraumatic, PERRLA, EOMI, Normocephalic Neck: Supple, No JVD, Negative Carotid Bruits Lungs: Clear to auscultation, Normal air movement Cardiovascular: Regular rate, No murmurs Abdomen: Bowel Sounds Present, Soft, Non Tender Extremities: No edema, Capillary Refill Less than 3 Seconds Skin: No rashes, No breakdown Musculoskeletal: No Tenderness to Palpation of Joints or Extremities Neurological: Cranial nerves II-XII grossly intact Psych/Mental Status: Normal Affect, Appropriate Vital Signs Temp Pulse Resp BP Pulse Ox 98.2 F 77 16 112/63 97 09/04/18 08:51 09/04/18 11:00 09/04/18 08:51 09/04/18 08:56 09/04/18 08:51 Oxygen Flow Rate (L/min) 2 Oxygen Delivery Method Room Air Weight: 235 lb 3.732 oz Body Mass Index (BMI) 25.8 Intake and Output for Last 24 Hours 09/02/18 09/03/18 09/04/18 23:59 23:59 23:59 Intake Total 1093.2 / 1093.2 335 / 335 500.2 / 500.2 Balance 1093.2 / 1093.2 335 / 335 500.2 / 500.2 Microbiology Past 72 Hours 09/01/18 23:40 Blood Culture - Preliminary Blood Culture (Wb) - Right Hand No growth in 48 hours. 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 09/02/18 16:15 Enteric Bacteriology - Final Stool 09/02/18 16:15 Stool Lactoferrin - Final Stool 09/02/18 05:00 Respiratory Panel (PCR) - Final Mucosa - Nose Discharge Diet: Low fat/ Low Cholesterol, 1800 Calorie Control Diet, 2000 mg Sodium Diet Discharge Activity: Return to Normal Activity Home Medications: Medications to take at Discharge Ondansetron [Zofran Odt] 4 mg PO Q8H PRN PRN #10 tab 11/09/15 Acyclovir 400 mg PO BID 11/17/15 Cholecalciferol (VIT D3) [Vitamin D3] 2,000 unit PO BID 11/17/15 Multivitamin [Daily Multiple Vitamin] 1 ea PO DAILY 11/17/15 Ranitidine [Zantac] 150 mg PO BID 11/17/15 Rifampin [Rifadin] 150 mg PO BID 11/17/15 Smz/Tmp Ds [Bactrim Ds] 1 tab PO MOWEFR 11/17/15 Temazepam 15 mg PO QHS PRN PRN 11/17/15 Ursodiol [Elsa] 750 mg PO BID 11/17/15 tacrolimus 1 mg capsule 6 mg PO Q12H 06/11/18 tamsulosin 0.4 mg capsule 0.4 mg PO DAILY 06/11/18 Metoprolol(XL)Succ [Toprol Xl (Beta Cheri)] 25 mg PO DAILY 09/01/18 Cefdinir [Omnicef [equiv]] 300 mg PO Q12H #14 capsule 09/04/18 Following Prescrptions Were Given to Patient: Cefdinir [Omnicef [equiv]] 300 mg PO Q12H #14 capsule Primary Care Physician: Sudhir Richter MD [Primary Care Provider] - Please follow up with your Primary Care Physician in: 1-2 weeks Please Follow Up With: Denny Doan MD When: Call for appointment Disposition: Home Minutes spent on discharge:: 35 Patient Condition:: Stable Medical Necessity - Tobacco Use Smoking Status: Never smoker Meaningful Use Info Meaningful Use Diagnoses (Choose all that apply): None applicable
--- NOTE | 2018-09-04 13:28 | DS.PCM_ITS ---
Discharge Date and Diagnosis - Problem List Patient Problems: Active and Suspected Problems (Last Reviewed 09/02/18 @ 04:00 by Tomas Calderon MD) Chest pain (Acute) Bacteremia due to Gram-negative bacteria (Acute) Date of Admission: 09/02/18 Date of Discharge: 09/04/18 - Primary Discharge Diagnosis Active and Suspected Problems (Last Reviewed 09/02/18 @ 04:00 by Tomas Calderon MD) Paroxysmal Afib with RVR Chest pain (Acute) Bacteremia due to Gram-negative bacteria (Acute) Hypomagnesemia DMt2 Hx Liver transplant BPH Insomnia presence of ostomy - Secondary Discharge Diagnosis Chronic Problems (Last Reviewed 09/02/18 @ 04:00 by Tomas Calderon MD) Adrenal insufficiency (Chronic) 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 Echo: Interpretation Summary Normal LV size. The estimated ejection fraction is 55 %. Stage 1 diastolic dysfunction. Mild (1+) tricuspid valve insufficiency. Pulmonary artery systolic pressure is 30 mmHg. Compared to previous study, the left ventricular systolic function is the same.. CT/Abdomen/Pel W ORAL Cont Only IMPRESSION: 1. Several tiny air density seen in the central intrahepatic biliary tree appearing similar to the previous study. Left portal vein prominence is again noted. 2. 1.7 cm left hepatic lobe cyst, decreased in size in the interval. 3. Nonobstructing 3 mm calculus of the right kidney. 4. Status post colectomy. Right pelvic ostomy. 5. Mildly enlarged prostate. 6. Small fat-containing umbilical hernia and small bilateral fat-containing inguinal hernias. Consultations 09/02/18 04:00 Consult: Onc/Wound/needle board repairer Routine Comment: Reason for Consult:: Patient with colostomy bag Operations: None Procedures: 2-D Echocardiogram Summary of Care Provided: Hospital course: The patient is a 68 year old M with pmhx as above who presented the emergency room with complaints of fever and of episodic 1 minute long chest pain. He was found to be febrile and with SVT. He was given IV fluids and admitted to the PCU on telemetry. Echocardiogram was obtained which was unremarkable. He remained in sinus rhythm without further intervention. Blood cultures were hiral en given his immune compromised state and his fever, 1 of the blood cultures grew gram-negative rods. He was started on Zosyn and infectious disease was consulted. A CT of the abdomen was obtained and did not show any acute process. He had no recurrence of his fever. Infectious disease switched him to Rocephin for 1 dose, and then advised 7 more days of Omnicef as an outpatient. He was discharged home in stable condition. Cardiology felt that no further workup should be performed while he had an acute infection. Cardiology also indicated that he did not need anticoagulated at this time. He was advised to follow-up with cardiology as an outpatient. He will also need to follow-up with his PCP in 1-2 weeks. This patient was seen by Noman Mehta PA-C under the supervision of Doctor Jessika jang. [] Patient Problems: Active and Suspected Problems (Last Reviewed 09/02/18 @ 04:00 by Tomas Calderon MD) Chest pain (Acute) Bacteremia due to Gram-negative bacteria (Acute) - Physical Exam General: Alert, Oriented x3, Cooperative HEENT: Atraumatic, PERRLA, EOMI, Normocephalic Neck: Supple, No JVD, Negative Carotid Bruits Lungs: Clear to auscultation, Normal air movement Cardiovascular: Regular rate, No murmurs Abdomen: Bowel Sounds Present, Soft, Non Tender Extremities: No edema, Capillary Refill Less than 3 Seconds Skin: No rashes, No breakdown Musculoskeletal: No Tenderness to Palpation of Joints or Extremities Neurological: Cranial nerves II-XII grossly intact Psych/Mental Status: Normal Affect, Appropriate Vital Signs Temp Pulse Resp BP Pulse Ox 98.2 F 77 16 112/63 97 09/04/18 08:51 09/04/18 11:00 09/04/18 08:51 09/04/18 08:56 09/04/18 08:51 Oxygen Flow Rate (L/min) 2 Oxygen Delivery Method Room Air Weight: 235 lb 3.732 oz Body Mass Index (BMI) 25.8 Intake and Output for Last 24 Hours 09/02/18 09/03/18 09/04/18 23:59 23:59 23:59 Intake Total 1093.2 / 1093.2 335 / 335 500.2 / 500.2 Balance 1093.2 / 1093.2 335 / 335 500.2 / 500.2 Microbiology Past 72 Hours 09/01/18 23:40 Blood Culture - Preliminary Blood Culture (Wb) - Right Hand No growth in 48 hours. 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 09/02/18 16:15 Enteric Bacteriology - Final Stool 09/02/18 16:15 Stool Lactoferrin - Final Stool 09/02/18 05:00 Respiratory Panel (PCR) - Final Mucosa - Nose Discharge Diet: Low fat/ Low Cholesterol, 1800 Calorie Control Diet, 2000 mg Sodium Diet Discharge Activity: Return to Normal Activity Home Medications: Medications to take at Discharge Ondansetron [Zofran Odt] 4 mg PO Q8H PRN PRN #10 tab 11/09/15 Acyclovir 400 mg PO BID 11/17/15 Cholecalciferol (VIT D3) [Vitamin D3] 2,000 unit PO BID 11/17/15 Multivitamin [Daily Multiple Vitamin] 1 ea PO DAILY 11/17/15 Ranitidine [Zantac] 150 mg PO BID 11/17/15 Rifampin [Rifadin] 150 mg PO BID 11/17/15 Smz/Tmp Ds [Bactrim Ds] 1 tab PO MOWEFR 11/17/15 Temazepam 15 mg PO QHS PRN PRN 11/17/15 Ursodiol [Elsa] 750 mg PO BID 11/17/15 tacrolimus 1 mg capsule 6 mg PO Q12H 06/11/18 tamsulosin 0.4 mg capsule 0.4 mg PO DAILY 06/11/18 Metoprolol(XL)Succ [Toprol Xl (Beta Cheri)] 25 mg PO DAILY 09/01/18 Cefdinir [Omnicef [equiv]] 300 mg PO Q12H #14 capsule 09/04/18 Following Prescrptions Were Given to Patient: Cefdinir [Omnicef [equiv]] 300 mg PO Q12H #14 capsule Primary Care Physician: Sudhir Richter MD [Primary Care Provider] - Please follow up with your Primary Care Physician in: 1-2 weeks Please Follow Up With: Denny Doan MD When: Call for appointment Disposition: Home Minutes spent on discharge:: 35 Patient Condition:: Stable Medical Necessity - Tobacco Use Smoking Status: Never smoker Meaningful Use Info Meaningful Use Diagnoses (Choose all that apply): None applicable
[2018-09-10 11:20] LABS: Enterovirus By PCR Negative (Negative)
== END 2018-09-04 13:19 | disposition home or self-care (01) ==
LOC: ED 09-02 02:55 → PCU 09-02 03:33
PROVIDERS: Physician Assistant; Admitting Provider Hospitalist; Emergency Provider Emergency Medicine; Family Provider Family Medicine; PCP Family Medicine; Visit Provider Internal Medicine
DX: R07.89 Other chest pain (principal); R00.2 Palpitations; R06.02 Shortness of breath; R78.81 Bacteremia; I48.0 Paroxysmal atrial fibrillation; N40.0 Benign prostatic hyperplasia without lower urinary tract symptoms; Z94.4 Liver transplant status; R42 Dizziness and giddiness; E11.9 Type 2 diabetes mellitus without complications; Z90.49 Acquired absence of other specified parts of digestive tract; K21.9 Gastro-esophageal reflux disease without esophagitis; N18.2 Chronic kidney disease, stage 2 (mild); Z79.899 Other long term (current) drug therapy; Z93.3 Colostomy status; R94.31 Abnormal electrocardiogram [ECG] [EKG]; K83.01 Primary sclerosing cholangitis; R50.9 Fever, unspecified; I47.1 Supraventricular tachycardia; E83.42 Hypomagnesemia; Z87.19 Personal history of other diseases of the digestive system
CPT/HCPCS: 36415; 71046; 74176; 80048; 80053; 80061; 81001; 83605; 83630; 83690; 83735; 84443; 84484; 85025; 85379; 85610; 85652; 85730; 86140; 87040; 87077; 87186; 87498; 87506; 87633; 93005; 93306; 96365; 96366; 96372; 96375; 99218; 99283; J7030; Q9957; A4216; G0378; J0696

== ENCOUNTER → 2018-09-06 11:03 | Outpatient (CLI) | payer MEDICARE, SELFPAY ==
[2018-09-02 04:04] VITALS: BMI 25.8
[2018-09-06 11:20] VITALS: BP 120/63; PULSE 76; RESP 18; TEMP 36.2; O2SAT 96; BMI 27.0
[2018-09-06] MEDS: Ertapenem Sod 1 GM/10 ML Vial IM (11:26)
== END ==
PROVIDERS: Family Provider Family Medicine; PCP Family Medicine; Visit Provider Internal Medicine Infectious Disease
DX: Z16.12 Extended spectrum beta lactamase (ESBL) resistance (principal)
CPT/HCPCS: 96372

== ENCOUNTER → 2018-09-07 11:07 | Outpatient (CLI) | payer MEDICARE, SELFPAY ==
[2018-09-06 11:20] VITALS: BMI 27.0
[2018-09-07 11:16] VITALS: BP 133/66; PULSE 69; RESP 15; TEMP 36.1; O2SAT 95; BMI 27.3
[2018-09-07] MEDS: Ertapenem Sod 1 GM/10 ML Vial IM (11:43)
== END ==
PROVIDERS: Family Provider Family Medicine; PCP Family Medicine; Referring Provider Internal Medicine Infectious Disease; Visit Provider Internal Medicine Infectious Disease
DX: Z16.12 Extended spectrum beta lactamase (ESBL) resistance (principal)
CPT/HCPCS: 96372

== ENCOUNTER 2018-09-08 12:06 | Outpatient (CLI) | payer MEDICARE, SELFPAY ==
[2018-09-06 11:20] VITALS: BMI 27.0
[2018-09-07 11:16] VITALS: BMI 27.3
[2018-09-08 12:10] VITALS: BP 140/73; PULSE 77; RESP 16; TEMP 36.3; O2SAT 98; BMI 25.8
[2018-09-08] MEDS: Ertapenem Sod 1 GM/10 ML Vial IM (12:36)
== END 2018-09-08 12:41 | disposition home or self-care (01) ==
PROVIDERS: Family Provider Family Medicine; PCP Family Medicine; Referring Provider Internal Medicine Infectious Disease; Visit Provider Internal Medicine Infectious Disease
DX: Z16.12 Extended spectrum beta lactamase (ESBL) resistance (principal)
CPT/HCPCS: 96372

== ENCOUNTER → 2018-09-09 10:45 | Outpatient (CLI) | payer MEDICARE, SELFPAY ==
[2018-09-06 11:20] VITALS: BMI 27.0
[2018-09-08 12:10] VITALS: BMI 25.8
[2018-09-09 11:20] VITALS: BP 135/71; PULSE 66; RESP 16; TEMP 36.4; O2SAT 96; BMI 26.4
[2018-09-09] MEDS: Ertapenem Sod 1 GM/10 ML Vial IM (11:25)
== END ==
PROVIDERS: Family Provider Family Medicine; PCP Family Medicine; Visit Provider Internal Medicine Infectious Disease
DX: Z16.12 Extended spectrum beta lactamase (ESBL) resistance (principal)
CPT/HCPCS: 96372

== ENCOUNTER → 2018-09-10 10:56 | Outpatient (CLI) | payer MEDICARE, SELFPAY ==
[2018-09-06 11:20] VITALS: BMI 27.0
[2018-09-09 11:20] VITALS: BMI 26.4
[2018-09-10 11:04] VITALS: BP 127/66; PULSE 71; RESP 18; TEMP 36.1; O2SAT 96; BMI 26.4
[2018-09-10] MEDS: Ertapenem Sod 1 GM/10 ML Vial IM (11:18)
== END ==
PROVIDERS: Family Provider Family Medicine; PCP Family Medicine; Visit Provider Internal Medicine Infectious Disease
DX: Z16.12 Extended spectrum beta lactamase (ESBL) resistance (principal)
CPT/HCPCS: 96372

== ENCOUNTER → 2018-09-11 11:08 | Outpatient (CLI) | payer MEDICARE, SELFPAY ==
[2018-09-06 11:20] VITALS: BMI 27.0
[2018-09-10 11:04] VITALS: BMI 26.4
[2018-09-11 11:12] VITALS: BP 125/65; PULSE 73; RESP 18; TEMP 36.6; O2SAT 96; BMI 26.4
[2018-09-11] MEDS: Ertapenem Sod 1 GM/10 ML Vial IM (11:47)
== END ==
PROVIDERS: Family Provider Family Medicine; PCP Family Medicine; Visit Provider Internal Medicine Infectious Disease
DX: Z16.12 Extended spectrum beta lactamase (ESBL) resistance (principal)
CPT/HCPCS: 96372

== ENCOUNTER → 2018-09-12 07:53 | Outpatient (CLI) | payer MEDICARE, SELFPAY ==
[2018-09-06 11:20] VITALS: BMI 27.0
[2018-09-11 11:12] VITALS: BMI 26.4
[2018-09-12 08:08] VITALS: BP 107/64; PULSE 70; RESP 18; TEMP 36.2; O2SAT 96; BMI 26.4
[2018-09-12] MEDS: Ertapenem Sod 1 GM/10 ML Vial IM (08:26)
== END ==
PROVIDERS: Family Provider Family Medicine; PCP Family Medicine; Visit Provider Internal Medicine Infectious Disease
DX: Z16.12 Extended spectrum beta lactamase (ESBL) resistance (principal)
CPT/HCPCS: 96372

== ENCOUNTER 2018-10-14 20:06 | Emergency (ER) | payer MEDICARE, SELFPAY ==
[2018-09-20 09:51] VITALS: BMI 26.6
[2018-10-14 20:07] VITALS: BP 121/67; PULSE 104; RESP 16; TEMP 38.1; O2SAT 95; BMI 26.6
--- NOTE | 2018-10-14 20:36 | ED.VIS.GEN ---
History of Present Illness Chief Complaint: Complaint Detail of Chief Complaint: Fever, chills and difficulty initiating urination Informant: Patient Onset: Today - Onset 1700 Context: Sudden Onset Quality: Fever, chills, status post liver transplant 1998 Location: Home Current Severity: Mild Maximum Severity: Moderate Worsened by: Nothing Relieved by: Nothing Associated Symptoms: Difficulty initiating urination and fever Narrative: Patient is a 68-year-old male on immunosuppressive therapy status post liver recipient. His liver transplant was in 1998. He was admitted to the hospital last month for bacteremia. Blood cultures were positive for E. coli. His workup was unremarkable for the source of his infection. This evening he had difficulty urinating. He had a document temperature 102.8. He did take ibuprofen. He complains of slight cough, which is not abnormal for him. He denies dysuria or hematuria. He complains of mild head discomfort. Denies photophobia, neck pain or neck stiffness. He denies rash. 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 Past Medical History - Allergies and Home Meds Allergies/Adverse Reactions: Allergies acetaminophen [From Tylenol] Allergy (Verified 09/07/18 11:14) Itching morphine Allergy (Verified 09/07/18 11:14) Shortness of breath naltrexone Allergy (Verified 09/07/18 11:14) Shortness of breath naproxen sodium [From Aleve] Allergy (Verified 09/07/18 11:14) Itching aspirin Adverse Reaction (Verified 09/07/18 11:14) Other DUE TO LIVER Primary Care Physician: Sudhir Richter MD [Primary Care Provider] - Prior records reviewed: Yes - Recent admission and results of blood culture Surgical History: - - Colectomy, Ostomy, Cholecystectomy, and liver transplant. Lives: Spouse/ Significant Other Smoking Status: Never smoker Alcohol: None Drugs: None - Family History Maternal Family History: Family History (Last Reviewed 09/20/18 @ 10:08 by Denny Doan MD) Unknown No problems noted. Family History: Reports: Cancer, Heart Disease, Pulmonary Disease Paternal Family History: Family History (Last Reviewed 09/20/18 @ 10:08 by Denny Doan MD) Unknown No problems noted. Family History: Reports: Pulmonary Disease Review of Systems General: Reports: Chills, Fever, Malaise. Denies: Subjective, Sweats, Weight loss Eyes: Denies: Visual changes - bilaterally, Diplopia ENT: Denies: Rhinorrhea, Sore throat Cardiovascular: Denies: Chest pain, Palpitations Respiratory: Denies: Dyspnea, Cough, Dyspnea on exertion Gastrointestinal: Denies: Abdominal pain, Nausea, Vomiting, Diarrhea, Melena, Hematochezia Genitourinary: Reports: - - Difficulty initiating urination. Denies: Dysuria, Hematuria, Frequency, - Musculoskeletal: Denies: Back pain, Extremity Pain Skin: Denies: Rash, Wounds Neurological: Denies: Headache, Weakness, Numbness Hematologic: Denies: Easy bruising, Easy bleeding Allergy: Denies: Uticaria, Swelling of the mouth Physical Exam Vital Signs/Narrative: Vital Signs Temp Pulse Resp BP Pulse Ox 10/14/18 20:07 100.6 F H 104 H 16 121/67 H 95 General: Well nourished, Well developed, No Acute Distress Head: Normocephalic, Atraumatic Eyes: Perrl, EOMI ENT: Moist mucous membranes, No rhinorrhea, TM's clear Neck: Supple, Nontender, No lymphadenopathy, No JVD Cardiovascular: Regular rhythm, No murmurs, Normal S1, Normal S2, Tachycardia Respiratory: No distress, CTA bilaterally, Chest nontender Abdomen: Soft, Nontender, Nondistended, Normal bowel sounds, No masses Back: Nontender, Normal Inspection. Negative for: CVA tenderness Extremities: Nontender, No edema Skin: Normal color, No rash. Negative for: Cyanosis, Jaundice Neurological: Alert, Oriented x3, Cranial nerves II-XII grossly intact, Normal Strength, Normal Sensation, Normal Gait Psychological: Normal affect, Normal Mood Diagnostic/Tx/Re-eval Laboratory Results 10/14/18 10/14/1819 20:20 20:30 20:30 WBC 11.3 H RBC 4.73 Hgb 15.0 Hct 43.7 MCV 92.4 MCH 31.7 MCHC 34.3 RDW 13.3 RDW Differential 45.1 H Plt Count 137 L MPV 10.3 Immature Gran % (Auto) 0.100 Neut % (Auto) 83.5 H Lymph % (Auto) 8.7 L [place] % (Auto) 6.5 Eos % (Auto) 1.1 Baso % (Auto) 0.1 Absolute Neuts (auto) 9.5 H Absolute Lymphs (auto) 0.98 Total Counted Not Reportable Sodium 137 Potassium 4.0 Chloride 107 Carbon Dioxide 23.0 Anion Gap 7 BUN 16 Creatinine 1.45 H Estim Creat Clear Calc 65.52 Est GFR (MDRD) Af Amer 62 Est GFR (MDRD) Non-Af 52 L BUN/Creatinine Ratio 11.0 Glucose 163 H Calcium 8.6 Urine Color Yellow Urine Clarity Clear Urine pH 5.0 Ur Specific [place] 1.020 Urine Protein 15 H Urine Glucose (UA) Normal Urine Ketones Negative Urine Occult Blood 25 H Urine Nitrite Negative Urine Bilirubin Negative Urine Urobilinogen Normal Ur Leukocyte Esterase Negative Urine RBC 0 SEEN Urine WBC 0 SEEN Ur Squamous Epith Cells 0-5 SEEN Urine Bacteria 0 SEEN Urine Mucus 0 SEEN - Rhythm Strip Rhythm Strip: Sinus Rhythm Rate: 110 Ectopy: None - Medical Decision Making With history of E. coli bacteremia on immunosuppressive meds with document temperature 102.8 with chills sepsis workup was undertaken. He did receive a dose of Rocephin. Chest x-ray was obtained to evaluate for pneumonia. Urinalysis was obtained to evaluate for UTI. Since his abdominal exam is benign imaging was not obtained. Patient states he feels well. With no source will discharge to home after infusion of Rocephin. He was given a prescription for Augmentin. He was informed of blood cultures become positive he will require admission to the hospital. He will follow-up with his primary care physician Dr. Richter. ED Disposition - Plan for ED Patient: Disposition: Home or Assisted Living Diagnosis: Fever and chills, Liver transplant recipient Prescriptions: Amox/Clavulanate Tablet [Augmentin Tablet] 875 mg PO Q12H #20 tablet Referrals: Sudhir Richter MD [Primary Care Provider] - 2 Days Additional Instructions: Your prescription was electronically transmitted to your designated pharmacy of choice.[place]
[2018-10-14 20:43] LABS: Bacteria 0 SEEN /hpf (None Seen); Mucous, Urine 0 SEEN /hpf (<or=2+); Red Blood Cells-Urine 0 SEEN /hpf (0-5); White Blood Cells 0 SEEN /hpf (0-5)
[2018-10-14 20:49] LABS: Absolute Lymphocyte Count 0.98 X10^3/ul (0.83-4.51); Absolute Neutrophil Count 9.5 X10^3/uL (2.0-7.7); Basophil# 0.01 X10^3/uL; Basophil% 0.1 % (0-1); Eosinophil# 0.12 X10^3/uL; Eosinophils% 1.1 % (0-5); Hematocrit 43.7 % (40-54); Lymphocyte # 0.98 X10^3/ul (4.0); Lymphocyte % 8.7 % (19-41); Mean Corp Hgb Conc 34.3 g/gl (32-36); Mean Corpuscular Hgb 31.7 pg (27.0-32.0); Mean Corpuscular Volume 92.4 fL (80-94); Mean Platelet Vol. 10.3 fl (6.2-12.0); Monocyte# 0.74 X10^3/uL; Monocyte% 6.5 % (0-10); Neutrophil # 9.46 X10^3/uL (2.7-7.7); Neutrophil % 83.5 % (47-70); Platelet Count 137 K/mm3 (150-450); RBC Distribution Width CV 13.3 % (11.6-14.6); RBC Distribution Width SD 45.1 fl (35.1-43.9); Red Blood Count 4.73 M/mm3 (4.6-6.2); White Blood Count 11.3 K/mm3 (4.4-11.0)
[2018-10-14 20:54] LABS: Color, Urine Yellow (Yellow); Glucose, Dipstick Normal (Normal); Ketone-Dipstick Negative (Negative); Leukocyte Esterase-Dipstick Negative /ul (Negative); Nitrite-Dipstick Negative (Negative); Occult Blood-Urine 25 /ul (Negative); Protein-Dipstick 15 mg/dl (Negative); Urine Bilirubin Dipstick Negative (Negative); Urine Clarity Clear (Clear); Urine Urobilinogen Normal (Normal)
[2018-10-14 20:58] LABS: POSITIVE COUNT NO; POSITIVE DIFFERENTIAL NO; POSITIVE MORPHOLOGY NO
[2018-10-14] MEDS: Ceftriaxone 1 GM/50 ML BAG IV (21:00)
[2018-10-14 21:11] LABS: Anion Gap 7 (5-15); BUN 16 mg/dL (7-18); Calcium,Total 8.6 mg/dL (8.5-10.1); Chloride 107 mmol/L (98-107); Creatinine, Serum 1.45 mg/dL (0.70-1.30); EST Glomerular Filtration Rate 52 mL/min (>60); Est Glom Filt Rate - Afr Amer 62 mL/min (>60); Estimated Creatinine Clearance 65.52 ml/min; Glucose 163 mg/dL (74-106); Sodium Level 137 mmol/L (136-145)
[2018-10-14 21:14] VITALS: BP 125/63; PULSE 113; RESP 16; TEMP 37.5; O2SAT 96
[2018-10-14 21:21] LABS: Squamous Epithelial Cells - UA 0-5 SEEN /hpf (0-5)
--- NOTE | 2018-10-14 21:42 | ED.VISSUMM ---
- ER Visit Summary Date of Service: 10/14/18 Chief Complaint: [] History of Present Illness: The patient is a 68 M [] Physical Examination: [] Test Results: [] Emergency Department Course and Treatment: [] Treatment Plan: [] Disposition: [] Impression: [] This note was generated with Scutum dictation software. It may contain incorrect words, spelling, and punctuation that were not noted in review of the chart prior to signing ED Disposition - Plan for ED Patient: Disposition: Home or Assisted Living Diagnosis: Fever and chills, Liver transplant recipient Instructions: ED Fever Unconf Cause Prescriptions: Amox/Clavulanate Tablet [Augmentin Tablet] 875 mg PO Q12H #20 tablet Referrals: Sudhir Richter MD [Primary Care Provider] - 2 Days Additional Instructions: Your prescription was electronically transmitted to your designated pharmacy of choice.[facility]
[2018-10-14 21:56] LABS: Lactic Acid 1.4 mmol/L (0.4-2.0)
[2018-10-14] MEDS: Amox/Clavulanate 875 MG Tablet PO (22:37)
== END 2018-10-14 22:40 | disposition home or self-care (01) ==
PROVIDERS: Emergency Provider Emergency Medicine; Family Provider Family Medicine; PCP Family Medicine
DX: R50.9 Fever, unspecified (principal); Z94.4 Liver transplant status; Z90.49 Acquired absence of other specified parts of digestive tract; I48.0 Paroxysmal atrial fibrillation; N18.2 Chronic kidney disease, stage 2 (mild)
CPT/HCPCS: 36415; 80048; 81001; 83605; 85025; 87040; 87086; 99285

== ENCOUNTER 2018-10-15 14:44 | Inpatient (IN) | payer MEDICARE, SELFPAY ==
[2018-10-14 20:07] VITALS: BMI 26.6
[2018-10-15] VITALS (9 sets, daily range): BP systolic 107–133; BP diastolic 64–79; PULSE 77–155; RESP 15–18; TEMP 36.6–38; O2SAT 93–97; BMI 26.6; BMI 27.1
--- NOTE | 2018-10-15 16:25 | ED.DCSUM_ITS ---
History of Present Illness Chief Complaint: Fever Informant: Patient Onset: Days Context: Sudden Onset Timing: Continuous Quality: Fever greater than 100.5 Location: Not applicable Current Severity: Moderate Maximum Severity: Moderate Worsened by: Nothing Relieved by: Improved with antipyretic Associated Symptoms: New symptom today shortness of breath, cough and body aches Narrative: Patient is an elderly male who is a liver transplant recipient who was seen yesterday. Workup was unremarkable. He did receive a dose of Rocephin. He was discharged with prescription for Augmentin based on prior culture results. Patient returns because of persistent fever. He states he feels worse. He has new respiratory symptoms today. He also complains of myalgias arthralgias. He reports difficulty initiating stream. He had this complaint yesterday. He denies dysuria, urgency or hematuria. He does have history of benign prostatic hypertrophy. There is no history of prostatitis. Prior similar symptoms: Yes Recent Illness/Hospitalization: Yes - Past Medical History (1) Bacteremia due to Gram-negative bacteria Status: Acute (2) CKD (chronic kidney disease) stage 2, GFR 60-89 ml/min Status: Chronic (3) Fever Status: Chronic (4) GERD (gastroesophageal reflux disease) Status: Chronic (5) History of liver transplant Status: Chronic (6) PAF (paroxysmal atrial fibrillation) Status: Chronic (7) Post-transplant lymphoproliferative disorder Status: Chronic Past Medical History - Allergies and Home Meds Allergies/Adverse Reactions: Allergies acetaminophen [From Tylenol] Allergy (Verified 10/15/18 14:45) Itching morphine Allergy (Verified 10/15/18 14:45) Shortness of breath naltrexone Allergy (Verified 10/15/18 14:45) Shortness of breath naproxen sodium [From Aleve] Allergy (Verified 10/15/18 14:45) Itching aspirin Adverse Reaction (Verified 10/15/18 14:45) Other DUE TO LIVER Primary Care Physician: Sudhir Richter MD [Primary Care Provider] - Prior records reviewed: Yes Surgical History: - - Colectomy, Ostomy, Cholecystectomy, and liver transplant. Lives: Spouse/ Significant Other Smoking Status: Never smoker Alcohol: None Drugs: None - Family History Maternal Family History: Family History (Last Reviewed 09/20/18 @ 10:08 by Denny Doan MD) Unknown No problems noted. Family History: Reports: Cancer, Heart Disease, Pulmonary Disease Paternal Family History: Family History (Last Reviewed 09/20/18 @ 10:08 by Denny Doan MD) Unknown No problems noted. Family History: Reports: Pulmonary Disease Review of Systems General: Reports: Chills, Fever, Malaise, Sweats. Denies: Subjective, Weight loss, - Eyes: Denies: Visual changes - bilaterally, Blurred Vision - bilaterally, Diplopia ENT: Denies: Bilateral ear pain, Rhinorrhea Cardiovascular: Denies: Chest pain, Palpitations Respiratory: Reports: Dyspnea, Cough, Dyspnea on exertion. Denies: Sputum, Orthopnea, Paroxysmal nocturnal dyspnea Gastrointestinal: Denies: Abdominal pain, Nausea, Vomiting, Diarrhea, Constipation, Melena, Hematochezia, -, - Genitourinary: Denies: Dysuria, Hematuria, Frequency, -, - Musculoskeletal: Reports: Myalgias, Arthralgias. Denies: Neck pain, Back pain, Swelling, Extremity Pain, -, - Skin: Denies: Rash, Abscess, Wounds Neurological: Reports: Weakness. Denies: Headache, Parasthesia, Numbness Endocrine: Denies: Polyuria, Polydipsia Hematologic: Denies: Easy bruising, Easy bleeding, Lymphadenopathy, -, - Allergy: Denies: Uticaria, Swelling of the mouth, Swelling of the tongue, -, - Physical Exam Vital Signs/Narrative: Vital Signs Temp Pulse Resp BP Pulse Ox 10/15/18 14:45 100.4 F H 86 16 111/64 96 Inital Vital Signs reviewed: Yes General: Well nourished, Well developed, No Acute Distress - Patient appears in no distress; however, he does appear ill. Head: Normocephalic, Atraumatic Eyes: Perrl, EOMI. Negative for: Pale conjunctiva, Scleral icterus, - ENT: No rhinorrhea, TM's clear, Dry mucous membranes Neck: Negative for: No lymphadenopathy, No JVD Cardiovascular: Regular rate, Regular rhythm, No murmurs, Normal S1, Normal S2 Respiratory: No distress, CTA bilaterally, Chest nontender Abdomen: Soft, Nontender, Nondistended, Normal bowel sounds. Negative for: No masses, Hepatomegaly, Splenomegaly, Mass, Pulsatile mass - He is a yuliet with the substance abuse and no bottom I think this is all alcohol withdrawal calcium is in 1 Back: Nontender, Normal Inspection. Negative for: CVA tenderness Extremities: Nontender, No edema, - - There is no swelling of any joints nor is there any erythema or bogginess. Skin: Normal color, No rash. Negative for: Cyanosis, Jaundice, Pallor Neurological: Alert, Oriented x3, Cranial nerves II-XII grossly intact, Normal Strength, Normal Sensation, Normal Gait Psychological: Normal affect, Normal Mood Diagnostic/Tx/Re-eval Chest X-Ray - ED: 2 View, Read by ED Physician, Normal, Heart, Mediastinum, Bony Structures, No Acute Disease, Chronic Changes 2 view chest x-ray interpreted by me as no acute process. There is evidence of chronic changes/scarring. Impressions Chest X-Ray 10/15/18 16:50 IMPRESSION: Degenerative changes, as described above. No demonstrated acute cardiopulmonary process. Electronically Signed: Bacilio Hills MD at 17:12 EDT , Service support , Abdomen/Pelvis CT 10/15/18 17:32 IMPRESSION: Stable postoperative change including liver transplant. There is pneumobilia. Resection of the colon with right lower quadrant ostomy. No obstruction. Stable right renal calcification. No hydronephrosis. Electronically Signed: Bacilio Hills MD at 19:51 EDT , Service support , 10/15/18 16:50 Chest PA and Lateral [RAD] Stat 10/15/18 17:32 Abdomen/Pelvis WITH Contrast [CT] Stat Laboratory Results 10/15/18 10/15/18 10/15/18 16:35 16:35 17:20 WBC 12.5 H RBC 4.77 Hgb 15.1 Hct 44.2 MCV 92.7 MCH 31.7 MCHC 34.2 RDW 13.5 RDW Differential 45.8 H Plt Count 118 L MPV 10.8 Immature Gran % (Auto) 0.100 Neut % (Auto) 83.3 H Lymph % (Auto) 5.2 L [place] % (Auto) 11.1 H Eos % (Auto) 0.2 Baso % (Auto) 0.1 Absolute Neuts (auto) 10.5 H Absolute Lymphs (auto) 0.65 L Total Counted Not Reportable Sodium 134 L Potassium 4.2 Chloride 103 Carbon Dioxide 23.0 Anion Gap 8 BUN 19 H Creatinine 1.62 H Estim Creat Clear Calc 58.64 Est GFR (MDRD) Af Amer 55 L Est GFR (MDRD) Non-Af 45 L BUN/Creatinine Ratio 11.7 Glucose 186 H Calcium 9.0 Total Bilirubin 2.60 H Direct Bilirubin 1.50 H AST 49 H ALT 62 H Alkaline Phosphatase 108 Total Protein 7.3 Albumin 3.3 Globulin 4.0 Lipase 221 Urine Color [place] Urine Clarity Clear Urine pH 5.0 Ur Specific [employer] 1.020 Urine Protein 15 H Urine Glucose (UA) Normal Urine Ketones 5 H Urine Occult Blood 50 H Urine Nitrite Positive H Urine Bilirubin 3 H Urine Urobilinogen 1 H Ur Leukocyte Esterase 25 H Urine RBC 0 SEEN Urine WBC 0-5 SEEN Ur Squamous Epith Cells 0 SEEN Urine Bacteria RARE Hyaline Casts 0-5 SEEN Urine Mucus 1+ - Rhythm Strip Rhythm Strip: Sinus Rhythm Rate: 88 Ectopy: None - Medical Decision Making Since patient is on immunosuppressive meds and has persistent fever with history of E. coli bacteremia additional blood culture was obtained. Blood work was repeated. Will treat with antibiotics. Chest x-ray is unremarkable. UA is positive for nitrites and bilirubin which it was not yesterday. Because he is a liver recipient with fever and vague symptoms CT of the abdomen was obtained with IV and p.o. contrast. He did receive fluid bolus pre-and post administration of contrast because a bump in his creatinine. He did receive dose of Zosyn. Since he does not appear well has elevated white count with the fever hospitalist was paged for admission. This is similar to presentation he had last month and diagnosed with E. coli bacteremia. Blood cultures from yesterday are pending. ED Disposition - Plan for ED Patient: Disposition: Acute Care [facility] Diagnosis: Pyuria, Liver transplant recipient, Fever, unknown origin, Acute on chronic renal insufficiency Referrals: Sudhir Richter MD [Primary Care Provider] -
--- NOTE | 2018-10-15 16:50 | RAD_ITS ---
STUDY: X-RAY CHEST REASON FOR EXAM: Male, 68 years old. Fever. Cough. Shortness of breath. TECHNIQUE: PA and lateral views of the chest. COMPARISON: August 24, 2018. FINDINGS: The lungs are clear and expanded. There are stable granulomatous calcifications. There is no demonstrated pleural abnormality. Normal size heart. Normal mediastinum and romel. Normal visualized pulmonary arteries. Normal visualized aortic arch and descending thoracic aorta. Normal visualized thoracic spine. Normal visualized ribs, clavicles, and shoulders. There is no demonstrated abnormality of the visualized soft tissue structures of the upper abdomen. RAD/Chest PA and Lateral IMPRESSION: Degenerative changes, as described above. No demonstrated acute cardiopulmonary process. Electronically Signed: Bacilio Hills MD at 17:12 EDT , Service support ,
[2018-10-15 16:59] LABS: Absolute Lymphocyte Count 0.65 X10^3/ul (0.83-4.51); Absolute Neutrophil Count 10.5 X10^3/uL (2.0-7.7); Basophil# 0.01 X10^3/uL; Basophil% 0.1 % (0-1); Eosinophil# 0.02 X10^3/uL; Eosinophils% 0.2 % (0-5); Hematocrit 44.2 % (40-54); Hemoglobin 15.1 g/dl (13.0-16.5); Lymphocyte # 0.65 X10^3/ul (4.0); Lymphocyte % 5.2 % (19-41); Mean Corp Hgb Conc 34.2 g/gl (32-36); Mean Corpuscular Hgb 31.7 pg (27.0-32.0); Mean Corpuscular Volume 92.7 fL (80-94); Mean Platelet Vol. 10.8 fl (6.2-12.0); Monocyte# 1.39 X10^3/uL; Monocyte% 11.1 % (0-10); Neutrophil # 10.45 X10^3/uL (2.7-7.7); Neutrophil % 83.3 % (47-70); Platelet Count 118 K/mm3 (150-450); RBC Distribution Width CV 13.5 % (11.6-14.6); RBC Distribution Width SD 45.8 fl (35.1-43.9); Red Blood Count 4.77 M/mm3 (4.6-6.2); White Blood Count 12.5 K/mm3 (4.4-11.0)
[2018-10-15 17:09] LABS: AST(SGOT) 49 U/L (15-37); Alanine Aminotransfer ALT/SGPT 62 U/L (16-61); Albumin, Serum 3.3 g/dL (3.2-5.0); Alkaline Phosphatase 108 U/L (45-117); Anion Gap 8 (5-15); BUN 19 mg/dL (7-18); BUN/Creat Ratio 11.7 RATIO (10-20); Chloride 103 mmol/L (98-107); Creatinine, Serum 1.62 mg/dL (0.70-1.30); EST Glomerular Filtration Rate 45 mL/min (>60); Est Glom Filt Rate - Afr Amer 55 mL/min (>60); Estimated Creatinine Clearance 58.64 ml/min; Glucose 186 mg/dL (74-106); Lipase 221 U/L (73-393); Potassium 4.2 mmol/L (3.5-5.1); Protein, Total 7.3 g/dL (6.4-8.2); Sodium Level 134 mmol/L (136-145)
[2018-10-15 17:18] LABS: POSITIVE COUNT NO; POSITIVE DIFFERENTIAL NO; POSITIVE MORPHOLOGY NO
--- NOTE | 2018-10-15 17:32 | CT_ITS ---
STUDY: CT ABDOMEN AND PELVIS WITH CONTRAST REASON FOR EXAM: Male, 68 years old. Fever. Chills. Abdominal pain. RADIATION DOSAGE (If Supplied By Facility): CTDIvol = ( 17.96 ) mGy, DLP = ( 1283.82 ) mGycm TECHNIQUE: Transaxial images were obtained from the dome of the diaphragm to the symphysis pubis with oral contrast. 100ML IV/Oral Isovue 300 was administered. Sagittal and coronal images were reconstructed. Individualized dose optimization techniques were used for this CT. COMPARISON: September 02, 2018 FINDINGS: The visualized lung bases are unremarkable. The visualized portions of the heart are within normal limits. There is postoperative change adjacent to the liver consistent with hepatic transplant. There is stable pneumobilia. There is mild central biliary dilatation. There is 1.7 cm cyst in the left lobe of the liver. There are surgical clips in the gallbladder fossa consistent with a prior cholecystectomy. Normal spleen. Normal pancreas. Normal bilateral adrenal glands. There is 0.2 cm calcification in the mid aspect of the right kidney. Normal left kidney. There is no hydronephrosis. Normal visualized stomach. Normal small intestine. There is colonic resection with right lower quadrant ostomy . There is non-visualization of the appendix. There is atherosclerotic calcification of the abdominal aorta, without a demonstrated aneurysm. Normal inferior vena cava. Normal retroperitoneum. Normal urinary bladder. There are prostatic calcifications. There is no free fluid in the abdomen or pelvis. There is fat-containing periumbilical hernia. There are postoperative changes of the abdominal wall. There is dextro scoliosis with degenerative change of the spine. There is stable 2.3 cm sclerosis of the right ilium. CT/Abdomen/Pelvis WITH Contrast IMPRESSION: Stable postoperative change including liver transplant. There is pneumobilia. Resection of the colon with right lower quadrant ostomy. No obstruction. Stable right renal calcification. No hydronephrosis. Electronically Signed: Bacilio Hills MD at 19:51 EDT , Service support ,
[2018-10-15 17:39] LABS: Red Blood Cells-Urine 0 SEEN /hpf (0-5); Squamous Epithelial Cells - UA 0 SEEN /hpf (0-5)
[2018-10-15 17:41] LABS: Color, Urine Amber (Yellow); Glucose, Dipstick Normal (Normal); Ketone-Dipstick 5 mg/dl (Negative); Leukocyte Esterase-Dipstick 25 /ul (Negative); Nitrite-Dipstick Positive (Negative); Occult Blood-Urine 50 /ul (Negative); Protein-Dipstick 15 mg/dl (Negative); Urine Bilirubin Dipstick 3 mg/dL (Negative); Urine Clarity Clear (Clear); Urine Urobilinogen 1 mg/dl (Normal)
[2018-10-15 17:47] LABS: Mucous, Urine 1+ /hpf (<or=2+)
[2018-10-15 17:48] LABS: Bacteria RARE /hpf (None Seen); White Blood Cells 0-5 SEEN /hpf (0-5)
[2018-10-15 17:49] LABS: Hyaline Cast 0-5 SEEN /lpf (0-5)
--- NOTE | 2018-10-15 21:23 | HP.PCM_ITS ---
Problem List (1) Ulcerative colitis Status: Chronic Qualifiers: Ulcerative colitis location: unspecified ulcerative colitis location Digestive disease complication type: with intestinal obstruction Qualified Code(s): K51.912 - Ulcerative colitis, unspecified with intestinal obstruction (2) History of liver transplant Status: Chronic (3) Primary sclerosing cholangitis Status: Chronic (4) CKD (chronic kidney disease) stage 2, GFR 60-89 ml/min Status: Chronic (5) PAF (paroxysmal atrial fibrillation) Status: Chronic (6) GERD (gastroesophageal reflux disease) Status: Chronic Qualifiers: Esophagitis presence: esophagitis presence not specified Qualified Code(s): K21.9 - Gastro-esophageal reflux disease without esophagitis History of Present Illness Date of Admission: 10/15/18 Chief Complaint: Fever, malaise, weakness. The patient is a 68 year old M with past medical history as mentioned above presented to the emergency room because of multiple symptoms. His main presenting symptom is fever which was up to 102 Fahrenheit, started yesterday, associated with malaise, headache and weakness and without aggravating or relieving factors. He came to the emergency room yesterday with the same complaints, workup done which was unremarkable and he was discharged home on Augmentin. Today, he returned back because of persistent fever, started having mild shortness of breath with dry cough and sinus congestion and also reported difficulty urinating and initiating urine stream. He had a history of liver transplant long time ago, on Prograf and recently, he was taken off hydrocortisone which apparently was started for adrenal insufficiency. He history of stage III chronic kidney disease and his baseline creatinine has been around 1.4-1.7 mg/dL and it has been stable. History of paroxysmal atrial fibrillation and he has been on metoprolol for rate control but not on anticoagulation. This patient was admitted on August, for E. coli bacteremia which was presumed to be due to translocation from the gut. In the emergency department, he had a low-grade fever, other vital signs are stable. His routine blood work was remarkable for leukocytosis with neutrophilia, creatinine 1.62 and blood glucose of 186. LFT was elevated which is chronic. Urinalysis revealed john paul colored urine, positive for nitrite, there was 25 leukocyte esterase, 0-5 WBCs and trace bacteria seen. Chest x-ray showed no acute findings. CT scan abdomen and pelvis with contrast revealed no acute findings, revealed postoperative liver transplant surgery, pneumobilia, colon resection with colostomy. He is being admitted for acute febrile illness without obvious source of infection although acute cystitis could be the etiology and possibly viral upper respiratory tract infection. 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) Atrial fibrillation (Chronic) CRF (chronic renal failure) (Chronic) Ulcerative colitis (Chronic) History of liver transplant (Chronic) Post-transplant lymphoproliferative disorder (Chronic) Primary sclerosing cholangitis (Chronic) CKD (chronic kidney disease) stage 2, GFR 60-89 ml/min (Chronic) PAF (paroxysmal atrial fibrillation) (Chronic) GERD (gastroesophageal reflux disease) (Chronic) Medical History: Medical History (Last Updated 10/15/18 @ 21:17 by Qamar Medrano MD) Adrenal insufficiency (Chronic) E27.40 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) Allergies acetaminophen [From Tylenol] Allergy (Verified 10/15/18 14:45) Itching morphine Allergy (Verified 10/15/18 14:45) Shortness of breath naltrexone Allergy (Verified 10/15/18 14:45) Shortness of breath naproxen sodium [From Aleve] Allergy (Verified 10/15/18 14:45) Itching aspirin Adverse Reaction (Verified 10/15/18 14:45) Other DUE TO LIVER Home Medications: Ambulatory Orders Medication Instructions Recorded Acyclovir 400 mg PO BID 11/17/15 Cholecalciferol (VIT D3) [Vitamin 2,000 unit PO DAILY 11/17/15 D3] Multivitamin [Daily Multiple 1 ea PO DAILY 11/17/15 Vitamin] Rifampin [Rifadin] 150 mg PO BID 11/17/15 Smz/Tmp Ds [Bactrim Ds] 1 tab PO MOWEFR 11/17/15 Temazepam 15 mg PO QHS PRN PRN 11/17/15 Ursodiol [Elsa] 750 mg PO BID 11/17/15 tacrolimus 1 mg capsule 6 mg PO Q12H 06/11/18 tamsulosin 0.4 mg capsule 0.4 mg PO DAILY 06/11/18 Metoprolol(XL)Succ [Toprol Xl 25 mg PO DAILY 09/01/18 (Beta Cheri)] ranitidine 150 mg tablet 150 mg PO DAILY tab 09/20/18 Amox/Clavulanate Tablet [Augmentin 875 mg PO Q12H #20 tablet 10/14/18 Tablet] Surgical History: cholecystectomy, - - Colectomy, Ostomy, Cholecystectomy, and liver transplant. Psychiatric History: No pertinent psych hx Lives: Spouse/ Significant Other Smoking Status: Never smoker Alcohol: None Drugs: None - *Family History Maternal Family History: Family History (Last Reviewed 09/20/18 @ 10:08 by Denny Doan MD) Unknown No problems noted. History Items: Cancer, Heart Disease, Pulmonary Disease Paternal Family History: Family History (Last Reviewed 09/20/18 @ 10:08 by Denny Doan MD) Unknown No problems noted. History Items: Pulmonary Disease Review of Systems Constitutional: Reports: Anorexia, Fever, Malaise, Weakness. Denies: Chills Eyes: Denies: Blurred vision, Double vision, Drainage, Redness HEENT: Reports: Nasal Congestion, Sinus Drainage. Denies: Difficulty Hearing, Ear Pain, Eye Pain, Sore Throat Cardiovascular: Denies: Chest Pain, Chest Pressure, Chest Tightness, Palpitations, Paroxysmal Noc. Dyspnea, Syncope Respiratory: Reports: Cough, Shortness of Breath. Denies: Hemoptysis, Pleuritic Pain, Sputum production, Wheezing Gastrointestinal: Denies: Abdominal Pain, Constipation, Diarrhea, Nausea, Vomiting Genitourinary: Reports: Frequency. Denies: Dysuria, Hematuria Musculoskeletal: Denies: Arm Pain, Back Pain, Foot Pain Skin: Denies: Dryness, Rash Neurological: Denies: Balance problems, Double vision, Change in Speech, Slurred speech, Confusion, Headaches, Incoordination, Numbness Psychiatric: Denies: Anxiety, Depression Endocrine: Denies: Change in Body Habitus, Polydipsia VTE Information - Inpt Only VTE Present on Admission: No VTE Mechan Device Prophylaxis: SCD's VTE Pharm Prophylaxis ordered?: No - Physical Exam General: Alert, Oriented x3, Cooperative, No apparent distress HEENT: Atraumatic, EOMI, Normocephalic Oral: Moist Mucosa, No Gingival or Mucosal Lesions/ Ulcerations Neck: Supple, No JVD, Negative Carotid Bruits, Trachea Midline, Thyroid Normal Size and Texture Lungs: Clear to auscultation, No rhonchi, No wheeze, No rales, Diminished Cardiovascular: Regular rate, Regular Rhythm, Normal S2, No murmurs, PMI Normal Abdomen: Bowel Sounds Present, Soft, Non Tender, Non-Distended, No Hepato- splenomegaly, - - Colostomy bag in place. Extremities: No clubbing, No cyanosis, No edema Skin: No rashes, No breakdown Lymphatic: No Cervical, Supraclavicular, or Inguinal Adenopathy Neurological: Cranial nerves II-XII grossly intact, Motor Exam 5/5 strength throughout Psych/Mental Status: Normal Affect, Appropriate, Alert and oriented to time, place, person, mood and affect Vital Signs Temp Pulse Resp BP Pulse Ox 98.6 F 82 15 117/79 96 10/15/18 20:42 10/15/18 20:42 10/15/18 20:42 10/15/18 20:42 10/15/18 20:42 Oxygen Delivery Method Room Air Weight: 237 lb Body Mass Index (BMI) 26.6 Laboratory Tests Past 24 Hrs 10/15/18 10/15/18 10/15/18 16:35 16:35 17:20 WBC 12.5 H RBC 4.77 Hgb 15.1 Hct 44.2 MCV 92.7 MCH 31.7 MCHC 34.2 RDW 13.5 RDW Differential 45.8 H Plt Count 118 L MPV 10.8 Immature Gran % (Auto) 0.100 Neut % (Auto) 83.3 H Lymph % (Auto) 5.2 L [place] % (Auto) 11.1 H Eos % (Auto) 0.2 Baso % (Auto) 0.1 Absolute Neuts (auto) 10.5 H Absolute Lymphs (auto) 0.65 L Total Counted Not Reportable Sodium 134 L Potassium 4.2 Chloride 103 Carbon Dioxide 23.0 Anion Gap 8 BUN 19 H Creatinine 1.62 H Estim Creat Clear Calc 58.64 Est GFR (MDRD) Af Amer 55 L Est GFR (MDRD) Non-Af 45 L BUN/Creatinine Ratio 11.7 Glucose 186 H Calcium 9.0 Total Bilirubin 2.60 H Direct Bilirubin 1.50 H AST 49 H ALT 62 H Alkaline Phosphatase 108 Total Protein 7.3 Albumin 3.3 Globulin 4.0 Lipase 221 Urine Color [place] Urine Clarity Clear Urine pH 5.0 Ur Specific [place] 1.020 Urine Protein 15 H Urine Glucose (UA) Normal Urine Ketones 5 H Urine Occult Blood 50 H Urine Nitrite Positive H Urine Bilirubin 3 H Urine Urobilinogen 1 H Ur Leukocyte Esterase 25 H Urine RBC 0 SEEN Urine WBC 0-5 SEEN Ur Squamous Epith Cells 0 SEEN Urine Bacteria RARE Hyaline Casts 0-5 SEEN Urine Mucus 1+ Clinical Impression(s) from Imaging Studies Chest X-Ray 10/15/18 16:50 IMPRESSION: Degenerative changes, as described above. No demonstrated acute cardiopulmonary process. Electronically Signed: Bacilio Hills MD at 17:12 EDT , Service support , Abdomen/Pelvis CT 10/15/18 17:32 IMPRESSION: Stable postoperative change including liver transplant. There is pneumobilia. Resection of the colon with right lower quadrant ostomy. No obstruction. Stable right renal calcification. No hydronephrosis. Electronically Signed: Bacilio Hills MD at 19:51 EDT , Service support , Assessment/Plan This is a 68 years old male patient presented to the emergency room because of fever, malaise, headache, urinary frequency and weakness, was in the emergency room yesterday for the same complaint and was discharged home on Augmentin and he returned back because of persistence of symptoms and he is being admitted for evaluation and treatment. #1 acute febrile illness: Unclear source of infection, probable acute cystitis versus viral URTI. GI source cannot be excluded because patient mentioned that his colostomy output is increasing. Patient had a recent history of E. coli bacteremia which attributed to translocation from the gut. At this time, no evidence of sepsis or severe sepsis. Hemodynamically stable. Chest x-ray showed no acute findings. CT scan abdomen and pelvis reviewed as above. Urinalysis reviewed, revealed only 0-5 RBCs and rare bacteria. Because patient is a transplant patient, he is immune compromised and risk of infection and bacteremia is high. Plan: Admit to [facility] floor, telemetry, blood culture, urine culture, IV fluids, respiratory panel for viruses, stool for C. difficile, stool for enteric pathogens, stool for ova and parasites, start IV Zosyn empirically, infectious disease consult, repeat CBC and CMP tomorrow morning, PT OT evaluation and treatment. #2 recent history of E. coli bacteremia: Which was attributed to translocation from gut. Patient completed antibiotics after 1 week of discharge and he feels okay until yesterday. Plan as above, blood culture, empiric IV Zosyn, infectious disease consult. #3 stage III chronic kidney disease: Baseline creatinine is around 1.4-1.7 mg/dL, admission creatinine is 1.62, stable at baseline. #4 paroxysmal atrial fibrillation: In sinus rhythm, stable, continue metoprolol for rate control, he is not on anticoagulations. #5 status post liver transplant: Liver transaminases slightly elevated compared to the most recent blood work, total bilirubin is currently elevated, alk phos is normal. CT scan abdomen reviewed as above. Lipase is normal. Continue tacrolimus. #6 hyperglycemia: Patient is aware that his pressure was high more likely due to prediabetes. He is not on any treatment. Plan: Accu-Cheks q. before meals at bedtime, sliding scale. #7 DVT prophylaxis: SCDs, no chemical prophylaxis because of thrombocytopenia. This note was generated with [employer] software. It may contain incorrect words, spelling, and punctuation that were not noted in checking the note before signing. Code Visit Inpatient E&M: 34474 Init Hosp L3
[2018-10-15] MEDS: 0.9% Normal Saline 1,000 ML 100 ML IV (22:10)
[2018-10-15] MEDS: Acyclovir 200 MG Capsule 400 MG PO (22:36)
[2018-10-15] MEDS: Tacrolimus Anhydrous 1 MG Capsule 6 MG PO (22:36)
[2018-10-15] MEDS: Acetaminophen 325 MG Tablet 650 MG PO (22:39)
[2018-10-15] MEDS: Temazepam 15 MG Capsule PO (22:44)
[2018-10-15] MEDS: Tamsulosin HCl 0.4 MG Capsule PO (22:44)
[2018-10-15 22:50] LABS: Bedside Glucose 223 mg/dL (70-110)
[2018-10-15] MEDS: Metoprolol(XL)Succ 25 MG Tablet PO (23:38)
[2018-10-16] VITALS (16 sets, daily range): BP systolic 107–176; BP diastolic 54–83; PULSE 84–126; RESP 16–32; TEMP 36.7–40.2; O2SAT 93–96
--- NOTE | 2018-10-16 04:06 | NURSING ---
tylenol verified with pt since it was on his allergy list. Pt states it makes him itch.
[2018-10-16 05:40] LABS: Absolute Lymphocyte Count 1.14 X10^3/ul (0.83-4.51); Absolute Neutrophil Count 9.6 X10^3/uL (2.0-7.7); Basophil# 0.01 X10^3/uL; Basophil% 0.1 % (0-1); Eosinophil# 0.02 X10^3/uL; Eosinophils% 0.2 % (0-5); Hematocrit 43.5 % (40-54); Lymphocyte # 1.14 X10^3/ul (4.0); Lymphocyte % 9.8 % (19-41); Mean Corp Hgb Conc 34.5 g/gl (32-36); Mean Corpuscular Hgb 32.1 pg (27.0-32.0); Mean Corpuscular Volume 92.9 fL (80-94); Mean Platelet Vol. 10.9 fl (6.2-12.0); Monocyte# 0.85 X10^3/uL; Monocyte% 7.3 % (0-10); Neutrophil # 9.63 X10^3/uL (2.7-7.7); Neutrophil % 82.5 % (47-70); Platelet Count 110 K/mm3 (150-450); RBC Distribution Width CV 13.7 % (11.6-14.6); RBC Distribution Width SD 46.5 fl (35.1-43.9); Red Blood Count 4.68 M/mm3 (4.6-6.2); White Blood Count 11.7 K/mm3 (4.4-11.0)
[2018-10-16 05:44] LABS: International Normalized Ratio 1.3; Prothrombin Time (Protime)PT. 15.6 SECONDS (11.7-14.9)
[2018-10-16 05:46] LABS: POSITIVE DIFFERENTIAL NO
[2018-10-16 05:47] LABS: POSITIVE COUNT NO; POSITIVE MORPHOLOGY NO
[2018-10-16 05:54] LABS: ALB/GLOB Ratio 0.8 RATIO (0.9-2.4); AST(SGOT) 39 U/L (15-37); Alanine Aminotransfer ALT/SGPT 57 U/L (16-61); Albumin, Serum 3.1 g/dL (3.2-5.0); Alkaline Phosphatase 96 U/L (45-117); Anion Gap 10 (5-15); BUN 18 mg/dL (7-18); BUN/Creat Ratio 10.1 RATIO (10-20); Calcium,Total 8.8 mg/dL (8.5-10.1); Chloride 103 mmol/L (98-107); Creatinine, Serum 1.78 mg/dL (0.70-1.30); EST Glomerular Filtration Rate 41 mL/min (>60); Est Glom Filt Rate - Afr Amer 49 mL/min (>60); Estimated Creatinine Clearance 53.37 ml/min; Glucose 149 mg/dL (74-106); Potassium 4.3 mmol/L (3.5-5.1); Protein, Total 7.1 g/dL (6.4-8.2); Sodium Level 137 mmol/L (136-145)
[2018-10-16 07:01] LABS: Bedside Glucose 160 mg/dL (70-110)
[2018-10-16] MEDS: Acetaminophen 325 MG Tablet 650 MG PO ×3 (07:04→23:11)
[2018-10-16] MEDS: 0.9% Normal Saline 1,000 ML 100 ML IV (07:04)
--- NOTE | 2018-10-16 07:38 | PCM.PROGNOTE ---
Patient Problems: Active and Suspected Problems (Last Updated 10/15/18 @ 21:17 by Qamar Medrano MD) Pyuria (Acute) Liver transplant recipient (Acute) Fever, unknown origin (Acute) Subjective: Day #1 meropenem The patient is a 68-year-old male with a past medical history of ulcerative colitis, liver transplant, primary sclerosing cholangitis, PTLD for which he had a colectomy, chronic renal failure stage II, paroxysmal atrial fibrillation and GERD who presented to the emergency department at [facility] on 10/15/2018 complaining of fever up to 102 ?F, headache, weakness and general malaise. He had been seen in the ER 1 day previously and workup was unremarkable at that time. He was discharged on Augmentin. He was admitted to [facility] in August 2018 for E. coli ESBL bacteremia. This was presumed to be secondary to translocation from the gut. Vital signs in the emergency department were temperature 100.4, pulse rate 86, blood pressure 111/64, respiratory rate 16 and he was 95-97% saturated on room air. CBC revealed an elevated white blood cell count at 12.5 with a left shift. Hemoglobin was 15.1 and platelets were low at 118,000. PT was 15.6. BMP was remarkable for an elevated creatinine at 1.62 which is mildly increased for him. Creatinine at discharge in August was 1.33. UA had 0-5 WBCs per high-power field and was nitrite positive however this may be secondary to hyperbilirubinemia. Microbiology from the August admission showed E. coli ESBL. It is sensitive to imipenem, meropenem and tigecycline and intermediately sensitive to Zosyn. He was started on Zosyn and admitted to the hospital. He is afebrile today with a temp of 98.6 ?F. He is c/o a severe GONZALEZ for the past 2 days. It is a band like sensation and worst over his eyes. denies aura, hx of migraine, N/V. He has tolerated Dilaudid in the past. He has been having dysuria. He has BPH and is on Flomax but, he has hesitancy and a slow stream still. - Physical Exam General: Alert, Oriented x3, Cooperative, - - Looks to be in pain and he is lying in bed with his head covered. HEENT: Atraumatic, PERRLA, Normocephalic Oral: Dry Mucosa Neck: Supple, No Nuchal Rigidity, Trachea Midline Lungs: Clear to auscultation, Normal air movement Cardiovascular: Regular rate, Regular Rhythm, Normal S1, Normal S2, No murmurs, No rub noted, No Gallop Abdomen: Bowel Sounds Present, Soft, Non Tender, Non-Distended, - Extremities: No clubbing, No cyanosis, No edema - Colostomy bag is in place Skin: No rashes, No breakdown Neurological: Cranial nerves II-XII grossly intact, Neuro grossly intact Psych/Mental Status: Normal Affect, Appropriate Vital Signs Temp Pulse Resp BP Pulse Ox 98.6 F 123 H 18 109/60 96 10/16/18 04:30 10/16/18 05:37 10/16/18 04:30 10/16/18 04:30 10/16/18 04:30 Oxygen Delivery Method Room Air Weight: 241 lb 10.026 oz Body Mass Index (BMI) 27.1 Intake and Output for Last 24 Hours 10/14/18 10/15/18 10/16/18 23:59 23:59 23:59 Intake Total 1432 / 1432 Output Total 150 / 150 Balance 1282 / 1282 Microbiology Past 72 Hours 10/15/18 22:24 C. difficile DNA Amplification - Final Stool Laboratory Tests Past 24 Hrs 10/15/18 10/15/18 10/15/18 16:35 16:35 17:20 WBC 12.5 H RBC 4.77 Hgb 15.1 Hct 44.2 MCV 92.7 MCH 31.7 MCHC 34.2 RDW 13.5 RDW Differential 45.8 H Plt Count 118 L MPV 10.8 Immature Gran % (Auto) 0.100 Neut % (Auto) 83.3 H Lymph % (Auto) 5.2 L [place] % (Auto) 11.1 H Eos % (Auto) 0.2 Baso % (Auto) 0.1 Absolute Neuts (auto) 10.5 H Absolute Lymphs (auto) 0.65 L Total Counted Not Reportable PT INR Sodium 134 L Potassium 4.2 Chloride 103 Carbon Dioxide 23.0 Anion Gap 8 BUN 19 H Creatinine 1.62 H Estim Creat Clear Calc 58.64 Est GFR (MDRD) Af Amer 55 L Est GFR (MDRD) Non-Af 45 L BUN/Creatinine Ratio 11.7 Glucose 186 H Calcium 9.0 Total Bilirubin 2.60 H Direct Bilirubin 1.50 H AST 49 H ALT 62 H Alkaline Phosphatase 108 Total Protein 7.3 Albumin 3.3 Globulin 4.0 Albumin/Globulin Ratio Lipase 221 Urine Color [place] Urine Clarity Clear Urine pH 5.0 Ur Specific [place] 1.020 Urine Protein 15 H Urine Glucose (UA) Normal Urine Ketones 5 H Urine Occult Blood 50 H Urine Nitrite Positive H Urine Bilirubin 3 H Urine Urobilinogen 1 H Ur Leukocyte Esterase 25 H Urine RBC 0 SEEN Urine WBC 0-5 SEEN Ur Squamous Epith Cells 0 SEEN Urine Bacteria RARE Hyaline Casts 0-5 SEEN Urine Mucus 1+ 10/16/18 10/16/18 10/16/18 05:10 05:10 05:10 WBC 11.7 H RBC 4.68 Hgb 15.0 Hct 43.5 MCV 92.9 MCH 32.1 H MCHC 34.5 RDW 13.7 RDW Differential 46.5 H Plt Count 110 L MPV 10.9 Immature Gran % (Auto) 0.100 Neut % (Auto) 82.5 H Lymph % (Auto) 9.8 L [place] % (Auto) 7.3 Eos % (Auto) 0.2 Baso % (Auto) 0.1 Absolute Neuts (auto) 9.6 H Absolute Lymphs (auto) 1.14 Total Counted Not Reportable PT 15.6 H INR 1.3 Sodium 137 Potassium 4.3 Chloride 103 Carbon Dioxide 24.0 Anion Gap 10 BUN 18 Creatinine 1.78 H Estim Creat Clear Calc 53.37 Est GFR (MDRD) Af Amer 49 L Est GFR (MDRD) Non-Af 41 L BUN/Creatinine Ratio 10.1 Glucose 149 H Calcium 8.8 Total Bilirubin 2.50 H Direct Bilirubin AST 39 H ALT 57 Alkaline Phosphatase 96 Total Protein 7.1 Albumin 3.1 L Globulin 4.0 Albumin/Globulin Ratio 0.8 L Lipase Urine Color Urine Clarity Urine pH Ur Specific [place] Urine Protein Urine Glucose (UA) Urine Ketones Urine Occult Blood Urine Nitrite Urine Bilirubin Urine Urobilinogen Ur Leukocyte Esterase Urine RBC Urine WBC Ur Squamous Epith Cells Urine Bacteria Hyaline Casts Urine Mucus POC Glucose 10/16/18 10/15/18 06:56 22:32 POC Glucose 160 H 223 H Medical Necessity - Tobacco Use Smoking Status: Never smoker Assessment/Plan All Active Problems (Last Updated 10/15/18 @ 21:17 by Qamar Medrano MD) Pyuria (Acute) Liver transplant recipient (Acute) Fever, unknown origin (Acute) Impressions 1. acute febrile illness in an immunocompromised individual on immunosuppressive drugs S/P Liver transplant. Admitted 1 month ago with E. Coli ESABL bacteremia. source was not identified at that time. Has had dysuria for a few days....given Augmentin in the ED 2 days prior to this admission....dysuria and fevers worsened. cultures ordered. 2. S/P liver transplant - with a hx of primary sclerosing cholangitis 3. PTLD - S/P colon resection 4. Chronic kidney disease stage III 5. Hyponatremia 6. Diet-controlled diabetes mellitus 7. Paroxysmal atrial fibrillation 8. GERD 9. Dysuria - only 0-5 WBC's on UA but the urine is nitrite positive and leukocyte esterase positive. 10. Nephrolithiasis with a stone in the right kidney -if this is impregnated with bacteria this may be the source for recurrent infections Start meropenem and discontinue Zosyn because the E. coli ESBL at the last admission was only intermediately sensitive and it may now be resistant. Can narrow the spectrum after the bacteria has been identified and sensitivities are available. Discontinue vancomycin Check postvoid residuals x3 Increase Flomax to 0.4 mg p[address] twice daily Dr. Wright has been consulted to participate in management Recheck lab in the a.m. Dilaudid 1 mg IV every 4 hours as needed for pain
[2018-10-16] MEDS: Acyclovir 200 MG Capsule 400 MG PO ×2 (10:13→22:16)
[2018-10-16] MEDS: Tacrolimus Anhydrous 1 MG Capsule 6 MG PO ×2 (10:13→22:16)
[2018-10-16] MEDS: Metoprolol(XL)Succ 25 MG Tablet PO (10:13)
[2018-10-16] MEDS: Famotidine 20 MG Tablet PO (10:13)
[2018-10-16] MEDS: Tamsulosin HCl 0.4 MG Capsule PO ×2 (10:13→22:16)
[2018-10-16] MEDS: RIFAMPIN 150 MG CAPSULE PO ×2 (10:15→22:20)
[2018-10-16 12:11] LABS: Bedside Glucose 182 mg/dL (70-110)
[2018-10-16] MEDS: HYDROmorphone 1 MG/ML Syringe IV ×2 (14:55→18:57)
[2018-10-16] MEDS: 0.9% NaCl Peripheral Flush Adult/Peds IV ×4 (14:55→23:06)
[2018-10-16] MEDS: 0.9% Normal Saline 1,000 ML 150 ML IV ×2 (15:03→22:17)
[2018-10-16] MEDS: Ondansetron 4 MG/2 ML Vial IV ×2 (15:05→23:06)
[2018-10-16 17:31] LABS: Bedside Glucose 178 mg/dL (70-110)
--- NOTE | 2018-10-16 18:32 | NURSING ---
pt request nurse- states he is feeling like he is running a temp. pt with whole body rigors, states has headache as well. see vitals
--- NOTE | 2018-10-16 19:34 | PCM.RX.CS ---
Consult Pharmacy has been consulted to manage selected antiobiotic: Vancomycin Type of Consult: New start Suspected Infection: Sepsis Prior Doses of Antibiotics Received/Current Regimen: NONE Labs: Sodium 137 mmol/L (136-145) 10/16/18 05:10 Potassium 4.3 mmol/L (3.5-5.1) 10/16/18 05:10 Chloride 103 mmol/L (98-107) 10/16/18 05:10 Carbon Dioxide 24.0 mmol/L (21.0-32.0) 10/16/18 05:10 Anion Gap 10 (5-15) 10/16/18 05:10 BUN 18 mg/dL (7-18) 10/16/18 05:10 Creatinine 1.78 mg/dL (0.70-1.30) H 10/16/18 05:10 Est GFR (MDRD) Af Amer 49 mL/min (>60) L 10/16/18 05:10 Est GFR (MDRD) Non-Af 41 mL/min (>60) L 10/16/18 05:10 BUN/Creatinine Ratio 10.1 RATIO (10-20) 10/16/18 05:10 Glucose 149 mg/dL (74-106) H 10/16/18 05:10 Microbiology: Microbiology 10/15/18 22:24 Stool Enteric Bacteriology - Final 10/15/18 23:50 Mucosa - Nose Respiratory Panel (PCR) - Final 10/15/18 22:24 Stool C. difficile DNA Amplification - Final Weight used for dosin kg Estimated Creatinine Clearance: 53ML/MIN Goal Trough: 15-20 mcg/mL Pharmacy Plan for Drug Dosing: PLAN/RECOMMENDATIONS 1. Vancomycin 15mg/kg initial dose 1500mg IV x1 10/16/18 @1999 2. Vancomycin scheduled dosing 1000mg IV Q12hrs to start 10/17/18 @30749 3. Trough scheduled prior to 4th total dose 10/18/18 @0730 4. Pharmacy Service will continue to monitor and adjust dosing as required.
[2018-10-16] MEDS: oxyCODONE HCl Cr 10 MG Tablet PO (20:19)
--- NOTE | 2018-10-16 21:53 | PCM.HP.ID ---
Problem List (1) Liver transplant recipient Status: Acute Reason for Consult: fever Consulted by: Dr. Wolfe History of Present Illness: The patient is a 68 year old M with h/o liver transplant who presented 10/15 with a few days of not feeling well, diarrhea, and straining to urinate with frequency and weak stream. H/o some BPH, but no issues like this before. Had been feeling well off of abx for the past month. Admitted 09/01 with ESBL ecoli in single bcx, improved with zosyn inpatient. No recent changes to immunosuppresion. No blood in stool. No abd pain. Also c/o some headache, dry cough for past few days. Came to ED 10/14, ceftriaxone given, sent home on augmentin. Sx worsened, returned 10/15. Admitted, started on zosyn, changed to meropenem, cxs pending. Now fever to 104 this evening. Vanc was added. Stool pcr and resp viral pcr neg. Cdiff neg. Full ROS performed and neg except as noted above. 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) CKD (chronic kidney disease) stage 2, GFR 60-89 ml/min (Chronic) PAF (paroxysmal atrial fibrillation) (Chronic) GERD (gastroesophageal reflux disease) (Chronic) Allergies/Adverse Reactions: Allergies acetaminophen [From Tylenol] Allergy (Verified 10/15/18 14:45) Itching morphine Allergy (Verified 10/15/18 14:45) Shortness of breath naltrexone Allergy (Verified 10/15/18 14:45) Shortness of breath naproxen sodium [From Aleve] Allergy (Verified 10/15/18 14:45) Itching aspirin Adverse Reaction (Verified 10/15/18 14:45) Other DUE TO LIVER Home Medications: Ambulatory Orders Medication Instructions Recorded Acyclovir 400 mg PO BID 11/17/15 Cholecalciferol (VIT D3) [Vitamin 2,000 unit PO DAILY 11/17/15 D3] Multivitamin [Daily Multiple 1 ea PO DAILY 11/17/15 Vitamin] Rifampin [Rifadin] 150 mg PO BID 11/17/15 Smz/Tmp Ds [Bactrim Ds] 1 tab PO MOWEFR 11/17/15 Temazepam 15 mg PO QHS PRN PRN 11/17/15 Ursodiol [Elsa] 750 mg PO BID 11/17/15 tacrolimus 1 mg capsule 6 mg PO Q12H 06/11/18 tamsulosin 0.4 mg capsule 0.4 mg PO DAILY 06/11/18 Metoprolol(XL)Succ [Toprol Xl 25 mg PO DAILY 09/01/18 (Beta Cehri)] ranitidine 150 mg tablet 150 mg PO DAILY tab 09/20/18 Amox/Clavulanate Tablet [Augmentin 875 mg PO Q12H #20 tablet 10/14/18 Tablet] Oxymetazoline HCl [Afrin] 30 ml NS BID PRN 10/15/18 - Social History SMOKING STATUS:: Never smoker Vital Signs Temp Pulse Resp BP Pulse Ox 100.8 F H 114 H 28 H 140/60 H 94 10/16/18 21:00 10/16/18 21:00 10/16/18 21:00 10/16/18 21:00 10/16/18 21:00 Oxygen Flow Rate (L/min) 3 Oxygen Delivery Method Nasal Cannula Weight: 109.6 kg Body Mass Index (BMI) 27.1 Microbiology Past 72 Hours 10/15/18 22:24 Enteric Bacteriology - Final Stool 10/15/18 23:50 Respiratory Panel (PCR) - Final Mucosa - Nose 10/15/18 22:24 C. difficile DNA Amplification - Final Stool Laboratory Tests Past 24 Hrs 10/16/18 10/16/18 10/16/18 05:10 05:10 05:10 WBC 11.7 H RBC 4.68 Hgb 15.0 Hct 43.5 MCV 92.9 MCH 32.1 H MCHC 34.5 RDW 13.7 RDW Differential 46.5 H Plt Count 110 L MPV 10.9 Immature Gran % (Auto) 0.100 Neut % (Auto) 82.5 H Lymph % (Auto) 9.8 L [place] % (Auto) 7.3 Eos % (Auto) 0.2 Baso % (Auto) 0.1 Absolute Neuts (auto) 9.6 H Absolute Lymphs (auto) 1.14 Total Counted Not Reportable PT 15.6 H INR 1.3 Sodium 137 Potassium 4.3 Chloride 103 Carbon Dioxide 24.0 Anion Gap 10 BUN 18 Creatinine 1.78 H Estim Creat Clear Calc 53.37 Est GFR (MDRD) Af Amer 49 L Est GFR (MDRD) Non-Af 41 L BUN/Creatinine Ratio 10.1 Glucose 149 H Calcium 8.8 Total Bilirubin 2.50 H AST 39 H ALT 57 Alkaline Phosphatase 96 Total Protein 7.1 Albumin 3.1 L Globulin 4.0 Albumin/Globulin Ratio 0.8 L - Other Studies Radiology: [] reviewed Other Studies: [] Route of nutrition/ use of supplements: [] Nutritional Intake: [] IV Site: [] Delgado Catheter: [] - Physical Exam General: Alert, Oriented x3, Cooperative, No apparent distress HEENT: Atraumatic, PERRLA, EOMI Neck: Supple, No Nodes Lungs: Clear to auscultation, Normal air movement Cardiovascular: Regular rate, Regular Rhythm, No murmurs Abdomen: Soft, Non Tender, Non-Distended, - - ostomy in place Extremities: No edema Skin: No rashes IV Site: Peripheral, without redness Musculoskeletal: No Tenderness to Palpation of Joints or Extremities Neurological: Cranial nerves II-XII grossly intact - Assessment/Plan Antibiotics: [] Assessment/Plan: [] Active and Suspected Problems (Last Updated 10/15/18 @ 21:17 by Qamar Medrano MD) Pyuria (Acute) Liver transplant recipient (Acute) Fever, unknown origin (Acute) High fever in liver transplant pt - unclear source. Had single Bcx with ESBL ecoli over a month ago. Had been feeling fine until new onset of fever, chills, headache, diarrhea, diffuse aches, and straining to urinate/weak stream/urinary frequency. CT abd/pelvis showed stable stone, no abscess. UA without pyuria 09/02, 10/14, and 10/15. Resp viral panel neg. Stool pcr and cdiff neg. Rising fever despite meropenem. Agree with adding vanc. Would recommend urology eval given his focal symptoms; prostate could be an ongoing nidus of infection. Thank you, will follow, d/w Dr. Wolfe.
[2018-10-16 22:30] LABS: Bedside Glucose 156 mg/dL (70-110)
[2018-10-16] MEDS: Temazepam 15 MG Capsule PO (23:11)
[2018-10-17] VITALS (12 sets, daily range): BP systolic 96–121; BP diastolic 53–65; PULSE 61–92; RESP 14–18; TEMP 36.4–37.7; O2SAT 94–97
[2018-10-17] MEDS: Acetaminophen 325 MG Tablet 650 MG PO ×3 (05:25→17:51)
[2018-10-17 05:58] LABS: ALB/GLOB Ratio 0.8 RATIO (0.9-2.4); AST(SGOT) 22 U/L (15-37); Alanine Aminotransfer ALT/SGPT 40 U/L (16-61); Albumin, Serum 2.6 g/dL (3.2-5.0); Alkaline Phosphatase 86 U/L (45-117); Anion Gap 7 (5-15); BUN 22 mg/dL (7-18); BUN/Creat Ratio 12.9 RATIO (10-20); Calcium,Total 7.7 mg/dL (8.5-10.1); Chloride 106 mmol/L (98-107); EST Glomerular Filtration Rate 43 mL/min (>60); Est Glom Filt Rate - Afr Amer 52 mL/min (>60); Estimated Creatinine Clearance 55.88 ml/min; Globulin 3.4 g/dL (2.2-4.2); Glucose 213 mg/dL (74-106); Magnesium 1.7 mg/dL (1.6-2.6); Phosphorus 2.5 mg/dL (2.5-4.9); Potassium 4.3 mmol/L (3.5-5.1); Sodium Level 135 mmol/L (136-145)
[2018-10-17 06:05] LABS: Absolute Neutrophil Count 10.9 X10^3/uL (2.0-7.7); Basophil# 0.01 X10^3/uL; Basophil% 0.1 % (0-1); Eosinophil# 0.01 X10^3/uL; Eosinophils% 0.1 % (0-5); Hematocrit 37.1 % (40-54); Hemoglobin 12.5 g/dl (13.0-16.5); Lymphocyte % 4.1 % (19-41); Mean Corp Hgb Conc 33.7 g/gl (32-36); Mean Corpuscular Hgb 31.6 pg (27.0-32.0); Mean Corpuscular Volume 93.7 fL (80-94); Mean Platelet Vol. 10.9 fl (6.2-12.0); Monocyte# 0.83 X10^3/uL; Monocyte% 6.8 % (0-10); Neutrophil # 10.91 X10^3/uL (2.7-7.7); Neutrophil % 88.7 % (47-70); Platelet Count 93 K/mm3 (150-450); RBC Distribution Width CV 13.5 % (11.6-14.6); RBC Distribution Width SD 45.1 fl (35.1-43.9); Red Blood Count 3.96 M/mm3 (4.6-6.2); White Blood Count 12.3 K/mm3 (4.4-11.0)
[2018-10-17 06:07] LABS: Differential Indicated SCAN CRITERIA MET; POSITIVE COUNT NO; POSITIVE DIFFERENTIAL YES; POSITIVE MORPHOLOGY NO
[2018-10-17] MEDS: 0.9% Normal Saline 1,000 ML 150 ML IV ×3 (06:45→21:34)
[2018-10-17] MEDS: Vancomycin IV 1,000 MG/200 ML BAG 200 MG IV ×2 (07:45→19:50)
[2018-10-17] MEDS: Tamsulosin HCl 0.4 MG Capsule PO ×2 (10:16→21:33)
[2018-10-17] MEDS: Tacrolimus Anhydrous 1 MG Capsule 6 MG PO ×2 (10:16→21:34)
[2018-10-17] MEDS: Acyclovir 200 MG Capsule 400 MG PO ×2 (10:17→21:33)
[2018-10-17] MEDS: Metoprolol(XL)Succ 25 MG Tablet PO (10:17)
[2018-10-17] MEDS: RIFAMPIN 150 MG CAPSULE PO ×2 (10:21→21:35)
[2018-10-17] MEDS: Oxymetazoline 0.05% 1 SPRAY SPRAY.BTL 2 SPRAY NASAL (10:23)
--- NOTE | 2018-10-17 11:15 | PCM.PROGNOTE ---
Patient Problems: Active and Suspected Problems (Last Updated 10/15/18 @ 21:17 by Qamar Medrano MD) Pyuria (Acute) Liver transplant recipient (Acute) Fever, unknown origin (Acute) Subjective: Day #2 meropenem and vancomycin All events of the past 24 hours of been reviewed. T-max the past 24 hours was 104.4 ?F. Current temp is 97.5. Started on Tylenol every 6 hours last evening x4 doses for rigors. Blood pressure is a little low today at 97/53 but the MAP is above 65. Good oral intake on 12/16/2018-2240. Fluid balance on 10/16/2018 is +4010. All lab was personally reviewed. White blood cell count today is 12.3 with a left shift. Hemoglobin dropped from 15-12.5 with hydration. Platelet count is 93,000 today, down from 118,000 at admission. Sodium is mildly decreased at 135 today. The BUN is 22 and the creatinine is 1.7, down from 1.78 on 10/16/2018. Bilirubin is down to 1.3. Transaminases and alkaline phosphatase are within normal limits. CMV and EBV titers are pending. Preliminary on the urine culture is no gross Blood cultures from 10/15/2018 have no growth. Tells me that he is urinating more easily since the Flomax was increased. Dysuria has resolved. GONZALEZ has improved significantly. No nausea today. Looks better and has some color in his face today. No rigors but is on scheduled Tylenol Objective: General: Alert, Oriented x3, Cooperative, looks much better today and was able to eat some breakfast. He has better color in his face today but still appears very fatigued HEENT: Atraumatic, PERRLA, Normocephalic Oral: Moist mucosa, no mucosal lesions observed Neck: Supple, No Nuchal Rigidity, Trachea Midline Lungs: Clear to auscultation, Normal air movement Cardiovascular: Regular rate, Regular Rhythm, Normal S1, Normal S2, No murmurs, No rub noted, No Gallop Abdomen: Bowel Sounds Present, Soft, Non Tender, Non-Distended, - Extremities: No clubbing, No cyanosis, No edema - Colostomy bag is in place Skin: No rashes, No breakdown Neurological: Cranial nerves II-XII grossly intact, Neuro grossly intact Psych/Mental Status: Normal Affect, Appropriate - Physical Exam Vital Signs Temp Pulse Resp BP Pulse Ox 97.5 F L 65 14 97/53 L 95 10/17/18 07:50 10/17/18 10:17 10/17/18 07:50 10/17/18 07:50 10/17/18 07:50 Oxygen Flow Rate (L/min) 3 Oxygen Delivery Method Room Air Weight: 241 lb 10.026 oz Body Mass Index (BMI) 27.1 Intake and Output for Last 24 Hours 10/15/18 10/16/18 10/17/18 23:59 23:59 23:59 Intake Total 5535 / 5535 1551 / 1551 Output Total 1525 / 1525 125 / 125 Balance 4010 / 4010 1426 / 1426 Microbiology Past 72 Hours 10/15/18 17:20 Urine Culture - Preliminary Urine, Clean Catch Culture exhibits no growth. 10/15/18 22:24 Enteric Bacteriology - Final Stool 10/15/18 23:50 Respiratory Panel (PCR) - Final Mucosa - Nose 10/15/18 22:24 C. difficile DNA Amplification - Final Stool Laboratory Tests Past 24 Hrs 10/17/18 10/17/18 10/17/18 05:08 05:08 05:08 WBC 12.3 H RBC 3.96 L Hgb 12.5 L Hct 37.1 L MCV 93.7 MCH 31.6 MCHC 33.7 RDW 13.5 RDW Differential 45.1 H Plt Count 93 L MPV 10.9 Immature Gran % (Auto) 0.200 Neut % (Auto) 88.7 H Lymph % (Auto) 4.1 L [place] % (Auto) 6.8 Eos % (Auto) 0.1 Baso % (Auto) 0.1 Absolute Neuts (auto) 10.9 H Absolute Lymphs (auto) 0.50 L Total Counted Not Reportable Sodium 135 L Potassium 4.3 Chloride 106 Carbon Dioxide 22.0 Anion Gap 7 BUN 22 H Creatinine 1.70 H Estim Creat Clear Calc 55.88 Est GFR (MDRD) Af Amer 52 L Est GFR (MDRD) Non-Af 43 L BUN/Creatinine Ratio 12.9 Glucose 213 H Calcium 7.7 L Phosphorus 2.5 Magnesium 1.7 Total Bilirubin 1.30 H AST 22 ALT 40 Alkaline Phosphatase 86 Total Protein 6.0 L Albumin 2.6 L Globulin 3.4 Albumin/Globulin Ratio 0.8 L CMV IgG Ab Pending CMV IgM Ab Pending CMV DNA Qual PCR Pending EBV Capsid Ag IgG Ab Pending EBV Capsid Ag IgM Ab Pending EBV Early Antigen IgG Pending EBV Nuclear Ag IgG Ab Pending EBV Antibody Interp Pending POC Glucose 10/16/18 10/16/18 10/16/18 22:10 17:23 11:45 POC Glucose 156 H 178 H 182 H Medical Necessity - Tobacco Use Smoking Status: Never smoker Assessment/Plan All Active Problems (Last Updated 10/15/18 @ 21:17 by Qamar Medrano MD) Pyuria (Acute) Liver transplant recipient (Acute) Fever, unknown origin (Acute) Day #2 Merrem and Vanco Impressions 1. acute febrile illness in an immunocompromised individual on immunosuppressive drugs S/P Liver transplant. Admitted 1 month ago with E. Coli ESABL bacteremia. source was not identified at that time. Has had dysuria for a few days....given Augmentin in the ED 2 days prior to this admission....dysuria and fevers worsened. cultures ordered. 2. S/P liver transplant - with a hx of primary sclerosing cholangitis 3. PTLD - S/P colon resection 4. Chronic kidney disease stage III 5. Hyponatremia - resolved 6. Diet-controlled diabetes mellitus 7. Paroxysmal atrial fibrillation 8. GERD 9. Dysuria - only 0-5 WBC's on UA but the urine is nitrite positive and leukocyte esterase positive. 10. Nephrolithiasis with a stone in the right kidney -if this is impregnated with bacteria this may be the source for recurrent infections 11. BPH-on Flomax with persistent hesitancy and slow stream. Not retaining Continue meropenem and vancomycin until final cultures have resulted. Consult Dr. Boo for problems with urination and possible infected stone appreciate Dr. Wright's input
--- NOTE | 2018-10-17 11:23 | CASEMGMT ---
RN CM Assessment. Presentation: Acute cystitis, FUO. Hx of liver transplant. ID consult. Intro role of CM to patient in room. Pt is awake, alert and able to participate in assessment. Pt states he is very independent, no care needs at home. PCP: Dr. Sudhir Rcihter [facility] Prescription coverage: yes Living arrangements: Lives in home with . No needs. DME: No DME use including no O2/Cpap Transportation: drives DC preference: Home DC Plan: home on discharge. ID rec on dc pending. If care needs on dc arise, CM will assist with dc planning. Tamiko HOWARD RN ACM
[2018-10-17 12:58] LABS: Hemoglobin A1c 6.6 % (4.2-6.3)
[2018-10-17] MEDS: 0.9% NaCl Peripheral Flush Adult/Peds IV ×3 (14:08→21:33)
[2018-10-17] MEDS: HYDROmorphone 1 MG/ML Syringe IV ×2 (14:08→17:56)
--- NOTE | 2018-10-17 16:09 | PN.ID_ITS ---
Patient Problems: Active and Suspected Problems (Last Updated 10/15/18 @ 21:17 by Qamar Medrano MD) Pyuria (Acute) Liver transplant recipient (Acute) Fever, unknown origin (Acute) Subjective: Feeling much better, headache and aches gone. Urination now back to normal. Still some diarrhea, watery. - Physical Exam General: Alert, Cooperative, No apparent distress Lungs: Clear to auscultation, Normal air movement Cardiovascular: Regular rate, Regular Rhythm Abdomen: Soft, Non Tender, Non-Distended Skin: No rashes Vital Signs Temp Pulse Resp BP Pulse Ox 97.7 F L 78 16 118/65 97 10/17/18 14:00 10/17/18 14:00 10/17/18 14:00 10/17/18 14:00 10/17/18 14:00 Oxygen Flow Rate (L/min) 3 Oxygen Delivery Method Room Air Weight: 109.6 kg Body Mass Index (BMI) 27.1 Intake and Output for Last 24 Hours 10/15/18 10/16/18 10/17/18 23:59 23:59 23:59 Intake Total 5535 / 5535 2853 / 2853 Output Total 1525 / 1525 125 / 125 Balance 4010 / 4010 2728 / 2728 Microbiology Past 72 Hours 10/15/18 17:20 Urine Culture - Preliminary Urine, Clean Catch Culture exhibits no growth. 10/15/18 22:24 Enteric Bacteriology - Final Stool 10/15/18 23:50 Respiratory Panel (PCR) - Final Mucosa - Nose 10/15/18 22:24 C. difficile DNA Amplification - Final Stool Laboratory Tests Past 24 Hrs 10/17/18 10/17/18 10/17/18 05:08 05:08 05:08 WBC 12.3 H RBC 3.96 L Hgb 12.5 L Hct 37.1 L MCV 93.7 MCH 31.6 MCHC 33.7 RDW 13.5 RDW Differential 45.1 H Plt Count 93 L MPV 10.9 Immature Gran % (Auto) 0.200 Neut % (Auto) 88.7 H Lymph % (Auto) 4.1 L [place] % (Auto) 6.8 Eos % (Auto) 0.1 Baso % (Auto) 0.1 Absolute Neuts (auto) 10.9 H Absolute Lymphs (auto) 0.50 L Total Counted Not Reportable Sodium 135 L Potassium 4.3 Chloride 106 Carbon Dioxide 22.0 Anion Gap 7 BUN 22 H Creatinine 1.70 H Estim Creat Clear Calc 55.88 Est GFR (MDRD) Af Amer 52 L Est GFR (MDRD) Non-Af 43 L BUN/Creatinine Ratio 12.9 Glucose 213 H Hemoglobin A1c Calcium 7.7 L Phosphorus 2.5 Magnesium 1.7 Total Bilirubin 1.30 H AST 22 ALT 40 Alkaline Phosphatase 86 Total Protein 6.0 L Albumin 2.6 L Globulin 3.4 Albumin/Globulin Ratio 0.8 L CMV IgG Ab Pending CMV IgM Ab Pending CMV DNA Qual PCR Pending EBV Capsid Ag IgG Ab Pending EBV Capsid Ag IgM Ab Pending EBV Early Antigen IgG Pending EBV Nuclear Ag IgG Ab Pending EBV Antibody Interp Pending 10/17/18 05:08 WBC RBC Hgb Hct MCV MCH MCHC RDW RDW Differential Plt Count MPV Immature Gran % (Auto) Neut % (Auto) Lymph % (Auto) [place] % (Auto) Eos % (Auto) Baso % (Auto) Absolute Neuts (auto) Absolute Lymphs (auto) Total Counted Sodium Potassium Chloride Carbon Dioxide Anion Gap BUN Creatinine Estim Creat Clear Calc Est GFR (MDRD) Af Amer Est GFR (MDRD) Non-Af BUN/Creatinine Ratio Glucose Hemoglobin A1c 6.6 H Calcium Phosphorus Magnesium Total Bilirubin AST ALT Alkaline Phosphatase Total Protein Albumin Globulin Albumin/Globulin Ratio CMV IgG Ab CMV IgM Ab CMV DNA Qual PCR EBV Capsid Ag IgG Ab EBV Capsid Ag IgM Ab EBV Early Antigen IgG EBV Nuclear Ag IgG Ab EBV Antibody Interp POC Glucose 10/16/18 10/16/18 22:10 17:23 POC Glucose 156 H 178 H Medical Necessity - Tobacco Use Smoking Status: Never smoker Route of nutrition/ use of supplements: [] Nutritional Intake: [] IV Site: [] Delgado Catheter: [] - Assessment/Plan Antibiotics: [] Assessment/Plan: [] Active and Suspected Problems (Last Updated 10/15/18 @ 21:17 by Qamar Medrano MD) Pyuria (Acute) Liver transplant recipient (Acute) Fever, unknown origin (Acute) High fever in liver transplant pt - unclear source. Had single Bcx with ESBL ecoli over a month ago, treated with inpatient zosyn then course of ertapenem as an outpt after ESBL was identified. Had been feeling fine until new onset of fever, chills, headache, diarrhea, diffuse aches, and straining to urinate/weak stream/urinary frequency. CT abd/pelvis showed stable stone, no abscess. UA without pyuria 09/02, 10/14, and 10/15. Resp viral panel neg. Stool pcr and cdiff neg. Now on vanc/antione, feeling better, no further fever. CMV and EBV studies pending. Will follow, d/w Dr. Wolfe.
--- NOTE | 2018-10-17 17:19 | PCM.CONS.U ---
Reason for Consult Date of Consultation: 10/17/18 Reason for Consultation: BPH and obstruction and right kidney stone History of Present Illness: The patient is a 68 year old male with history of liver transplant presents the hospital with dysuria difficulty going to the bathroom he does have a history of BPH and obstruction has been on Flomax in the past. On admission he has had his Flomax increased and reports that he is having better flow urine culture was done which came back negative for bacteria. Also in the past he took finasteride I recommend we go ahead and restart finasteride 5 mg daily. At this point reports a better urinary flow and emptying. He also has a nonobstructing obstructing stone in the right kidney fairly small I do not think this is a source of infection whatsoever do not recommend any intervention for this kidney stone. 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) CKD (chronic kidney disease) stage 2, GFR 60-89 ml/min (Chronic) PAF (paroxysmal atrial fibrillation) (Chronic) GERD (gastroesophageal reflux disease) (Chronic) Medical History: Medical History (Last Reviewed 10/17/18 @ 17:20 by Brandon Boo MD) Adrenal insufficiency (Chronic) E27.40 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) Allergies acetaminophen [From Tylenol] Allergy (Verified 10/15/18 14:45) Itching morphine Allergy (Verified 10/15/18 14:45) Shortness of breath naltrexone Allergy (Verified 10/15/18 14:45) Shortness of breath naproxen sodium [From Aleve] Allergy (Verified 10/15/18 14:45) Itching aspirin Adverse Reaction (Verified 10/15/18 14:45) Other DUE TO LIVER Home Medications: Ambulatory Orders Medication Instructions Recorded Acyclovir 400 mg PO BID 11/17/15 Cholecalciferol (VIT D3) [Vitamin 2,000 unit PO DAILY 11/17/15 D3] Multivitamin [Daily Multiple 1 ea PO DAILY 11/17/15 Vitamin] Rifampin [Rifadin] 150 mg PO BID 11/17/15 Smz/Tmp Ds [Bactrim Ds] 1 tab PO MOWEFR 11/17/15 Temazepam 15 mg PO QHS PRN PRN 11/17/15 Ursodiol [Elsa] 750 mg PO BID 11/17/15 tacrolimus 1 mg capsule 6 mg PO Q12H 06/11/18 tamsulosin 0.4 mg capsule 0.4 mg PO DAILY 06/11/18 Metoprolol(XL)Succ [Toprol Xl 25 mg PO DAILY 09/01/18 (Beta Cheri)] ranitidine 150 mg tablet 150 mg PO DAILY tab 09/20/18 Amox/Clavulanate Tablet [Augmentin 875 mg PO Q12H #20 tablet 10/14/18 Tablet] Oxymetazoline HCl [Afrin] 30 ml NS BID PRN 10/15/18 Surgical History: cholecystectomy, - - Colectomy, Ostomy, Cholecystectomy, and liver transplant. Psychiatric History: No pertinent psych hx Lives: Spouse/ Significant Other Smoking Status: Never smoker Alcohol: None Drugs: None - *Family History Maternal Family History: Family History (Last Reviewed 09/20/18 @ 10:08 by Denny Doan MD) Unknown No problems noted. History Items: Cancer, Heart Disease, Pulmonary Disease Paternal Family History: Family History (Last Reviewed 09/20/18 @ 10:08 by Denny Doan MD) Unknown No problems noted. History Items: Pulmonary Disease Review of Systems Constitutional: Reports: Fever. Denies: Weight Change HEENT: Denies: Head Aches, Sinus Congestion, Sinus Drainage Cardiovascular: Denies: Chest Pain, Palpitations Respiratory: Denies: Cough, Shortness of breath at rest, Sputum production Gastrointestinal: Denies: Abdominal Pain, Nausea, Vomiting Genitourinary: Denies: Dysuria Musculoskeletal: Denies: Joint Pain, Joint Tenderness Skin: Denies: Rash, Wounds Neurological: Denies: Numbness, Tingling, Focal weakness Psychiatric: Denies: Anxiety, Depression, Homicidal Ideations, Suicidal Ideations Hematologic/ Lymphatic: Denies: Easy Bruising, Easy Bleeding Physical Exam - Physical Exam Vital Signs Temp 97.7 F L 10/17/18 14:00 Pulse 78 10/17/18 14:00 Resp 16 10/17/18 14:00 BP 118/65 10/17/18 14:00 Pulse Ox 97 10/17/18 14:00 Intake & Output 10/15/18 10/16/18 10/17/18 23:59 23:59 23:59 Intake Total 5535 / 5535 2853 / 2853 Output Total 1525 / 1525 125 / 125 Balance 4010 / 4010 2728 / 2728 Weight: 109.6 kg Intake: Oral 2240 / 2240 200 / 200 IV fluid/meds 3295 / 3295 2653 / 2653 Output: Urine 550 / 550 Stool Amount 975 / 975 125 / 125 Other: Number of Voids 1 1 Number of Bowel Movements 2 General: Alert, Oriented x3 HEENT: Atraumatic Oral: Moist Mucosa Neck: Supple Lungs: Normal air movement Cardiovascular: Regular rate Abdomen: Soft, Obese Microbiology Past 72 Hours 10/15/18 17:20 Urine Culture - Preliminary Urine, Clean Catch Culture exhibits no growth. 10/15/18 22:24 Enteric Bacteriology - Final Stool 10/15/18 23:50 Respiratory Panel (PCR) - Final Mucosa - Nose 10/15/18 22:24 C. difficile DNA Amplification - Final Stool Laboratory Tests Past 24 Hrs 10/17/18 10/17/18 10/17/18 05:08 05:08 05:08 WBC 12.3 H RBC 3.96 L Hgb 12.5 L Hct 37.1 L MCV 93.7 MCH 31.6 MCHC 33.7 RDW 13.5 RDW Differential 45.1 H Plt Count 93 L MPV 10.9 Immature Gran % (Auto) 0.200 Neut % (Auto) 88.7 H Lymph % (Auto) 4.1 L [place] % (Auto) 6.8 Eos % (Auto) 0.1 Baso % (Auto) 0.1 Absolute Neuts (auto) 10.9 H Absolute Lymphs (auto) 0.50 L Total Counted Not Reportable Sodium 135 L Potassium 4.3 Chloride 106 Carbon Dioxide 22.0 Anion Gap 7 BUN 22 H Creatinine 1.70 H Estim Creat Clear Calc 55.88 Est GFR (MDRD) Af Amer 52 L Est GFR (MDRD) Non-Af 43 L BUN/Creatinine Ratio 12.9 Glucose 213 H Hemoglobin A1c Calcium 7.7 L Phosphorus 2.5 Magnesium 1.7 Total Bilirubin 1.30 H AST 22 ALT 40 Alkaline Phosphatase 86 Total Protein 6.0 L Albumin 2.6 L Globulin 3.4 Albumin/Globulin Ratio 0.8 L CMV IgG Ab Pending CMV IgM Ab Pending CMV DNA Qual PCR Pending EBV Capsid Ag IgG Ab Pending EBV Capsid Ag IgM Ab Pending EBV Early Antigen IgG Pending EBV Nuclear Ag IgG Ab Pending EBV Antibody Interp Pending 10/17/18 05:08 WBC RBC Hgb Hct MCV MCH MCHC RDW RDW Differential Plt Count MPV Immature Gran % (Auto) Neut % (Auto) Lymph % (Auto) [place] % (Auto) Eos % (Auto) Baso % (Auto) Absolute Neuts (auto) Absolute Lymphs (auto) Total Counted Sodium Potassium Chloride Carbon Dioxide Anion Gap BUN Creatinine Estim Creat Clear Calc Est GFR (MDRD) Af Amer Est GFR (MDRD) Non-Af BUN/Creatinine Ratio Glucose Hemoglobin A1c 6.6 H Calcium Phosphorus Magnesium Total Bilirubin AST ALT Alkaline Phosphatase Total Protein Albumin Globulin Albumin/Globulin Ratio CMV IgG Ab CMV IgM Ab CMV DNA Qual PCR EBV Capsid Ag IgG Ab EBV Capsid Ag IgM Ab EBV Early Antigen IgG EBV Nuclear Ag IgG Ab EBV Antibody Interp Assessment/Plan All Active Problems (Last Updated 10/15/18 @ 21:17 by Qamar Medrano MD) Pyuria (Acute) Liver transplant recipient (Acute) Fever, unknown origin (Acute) 68-year-old male history of BPH and obstruction currently on Flomax twice a day recommend we add Proscar 5 mg daily to help with bladder emptying in the long-term. Urine culture was negative. He is doing better on twice a day Flomax. Nonobstructing stone recommend observation I do not think this is a source of infection. Call me with questions he can follow-up with me as an outpatient
[2018-10-17] MEDS: Ursodiol 250 MG Tablet 750 MG PO (21:34)
[2018-10-17] MEDS: Temazepam 15 MG Capsule PO (21:38)
[2018-10-18] VITALS (19 sets, daily range): BP systolic 110–159; BP diastolic 59–80; PULSE 68–172; RESP 16–18; TEMP 36.8–38.3; O2SAT 94–97
[2018-10-18] MEDS: HYDROmorphone 1 MG/ML Syringe IV ×6 (00:17→23:03)
[2018-10-18] MEDS: 0.9% NaCl Peripheral Flush Adult/Peds IV ×6 (00:21→23:04)
[2018-10-18 01:30] LABS: Bedside Glucose 193 mg/dL (70-110)
[2018-10-18] MEDS: 0.9% Normal Saline 1,000 ML 150 ML IV ×4 (04:32→23:04)
[2018-10-18] MEDS: Acetaminophen 325 MG Tablet 650 MG PO ×2 (07:33→19:04)
[2018-10-18] MEDS: Vancomycin IV 1,000 MG/200 ML BAG 200 MG IV (07:33)
[2018-10-18] MEDS: Tacrolimus Anhydrous 1 MG Capsule 6 MG PO ×2 (07:34→22:59)
[2018-10-18] MEDS: Metoprolol(XL)Succ 25 MG Tablet PO ×2 (07:34→20:27)
[2018-10-18] MEDS: Famotidine 20 MG Tablet PO (07:35)
[2018-10-18] MEDS: Tamsulosin HCl 0.4 MG Capsule PO ×2 (07:35→22:58)
[2018-10-18] MEDS: Acyclovir 200 MG Capsule 400 MG PO ×2 (07:35→22:59)
[2018-10-18] MEDS: Ursodiol 250 MG Tablet 750 MG PO ×2 (07:35→22:59)
[2018-10-18] MEDS: Finasteride 5 MG Tablet PO (07:35)
[2018-10-18] MEDS: RIFAMPIN 150 MG CAPSULE PO ×2 (07:39→23:03)
--- NOTE | 2018-10-18 07:45 | NURSING ---
am meds given at this time as pt takes at home. rating h/a 6-01/01, tylenol given. will send communication to dr cummings as tylenol has not been very effective in the past.
[2018-10-18 08:10] LABS: Vancomycin, Trough Level 14.9 ug/mL (5.0-15.0)
--- NOTE | 2018-10-18 08:28 | PCM.RX.CS ---
Consult Pharmacy has been consulted to manage selected antiobiotic: Vancomycin Type of Consult: Follow-up Suspected Infection: Sepsis Prior Doses of Antibiotics Received/Current Regimen: Medications Vancomycin HCl (Vancomycin) 1,000 mg in 200 mls @ 200 mls/hr IV Q12H SAROJ Last Admin: 10/18/18 07:33 Dose: 200 mls/hr Labs: Sodium 135 mmol/L (136-145) L 10/17/18 05:08 Potassium 4.3 mmol/L (3.5-5.1) 10/17/18 05:08 Chloride 106 mmol/L (98-107) 10/17/18 05:08 Carbon Dioxide 22.0 mmol/L (21.0-32.0) 10/17/18 05:08 Anion Gap 7 (5-15) 10/17/18 05:08 BUN 22 mg/dL (7-18) H 10/17/18 05:08 Creatinine 1.70 mg/dL (0.70-1.30) H 10/17/18 05:08 Est GFR (MDRD) Af Amer 52 mL/min (>60) L 10/17/18 05:08 Est GFR (MDRD) Non-Af 43 mL/min (>60) L 10/17/18 05:08 BUN/Creatinine Ratio 12.9 RATIO (10-20) 10/17/18 05:08 Glucose 213 mg/dL (74-106) H 10/17/18 05:08 Vancomycin Trough 14.9 ug/mL (5.0-15.0) 10/18/18 07:20 Microbiology: Microbiology 10/15/18 17:20 Urine, Clean Catch Urine Culture - Preliminary Culture exhibits no growth. 10/15/18 22:24 Stool Enteric Bacteriology - Final 10/15/18 23:50 Mucosa - Nose Respiratory Panel (PCR) - Final 10/15/18 22:24 Stool C. difficile DNA Amplification - Final Goal Trough: 15-20 mcg/mL Pharmacy Plan for Drug Dosing: The patient had a trough drawn which resulted in a value of 14.9 (drawn ~11.5hrs from last administered dose). Per progress notes, the patient is improving. Although the trough is 15-20, will not change the dose at this time due to patient improvement on current dose and the drawn trough value is very close to 15. PLAN/RECOMMENDATIONS 1. Continue vancomycin 1000mg IV Q12hrs 2. Trough re-check scheduled for 10/22 @0730 to reassess dosing at that time 3. Pharmacy Service will continue to monitor and adjust dosing as required.
--- NOTE | 2018-10-18 13:02 | NURSING ---
tHIS NURSE ATTEMPTED TO RE-START IV [address] ENAMORADO AWARE AND ORDERED MIDLINE. THIS NURSE CALLED SHIPPING COORDINATOR AND INFORMED PAGE WHOM WILL CALL THIS NURSE BACK WITH ESTIMATED TIME THAT SHIPPING COORDINATOR WILL BE HERE.
--- NOTE | 2018-10-18 13:32 | PCA ---
in with pt
--- NOTE | 2018-10-18 13:43 | CT_ITS ---
STUDY: CT BRAIN WITH AND WITHOUT CONTRAST REASON FOR EXAM: Male, 68 years old. Headache, immunocompromised, fever RADIATION DOSAGE (If Supplied By Facility): CTDIvol = ( 60.81 ) mGy, DLP = ( 1221.94 ) mGycm TECHNIQUE: Transaxial CT imaging of the brain was performed pre and post contrast administration. The examination was performed with intravenous administration of 50ml IV Isovue 300. Individualized dose optimization techniques were used for this CT. COMPARISON: None. FINDINGS: Normal soft tissue structures. Normal calvarium. Normal size ventricles and extra-axial spaces for the patient's age. Normal white matter tracts of the cerebral hemispheres. Normal basal ganglia and thalami. Normal brainstem. Normal cerebellum. There is no intracranial hemorrhage. There are no findings of an acute ischemic infarction. Normal visualized paranasal sinuses. CT/Brain/Head W/WO Contrast IMPRESSION: No evidence of acute infarct or hemorrhage. Pre and postcontrast MRI correlation is recommended if possible. Electronically Signed: Stef Montalvo MD at 15:52 EDT Tel , Service support ,
--- NOTE | 2018-10-18 16:41 | PCM.PN.ID ---
Patient Problems: Active and Suspected Problems (Last Reviewed 10/17/18 @ 17:20 by Brandon Boo MD) Pyuria (Acute) Liver transplant recipient (Acute) Fever, unknown origin (Acute) Subjective: No fever, diarrhea a little better. C/o severe headache on top of head. No vision changes, no neck pain. - Physical Exam General: Alert, Cooperative, No apparent distress Lungs: Clear to auscultation, Normal air movement Cardiovascular: Regular rate, Regular Rhythm Abdomen: Soft, Non Tender, Non-Distended Skin: No rashes Vital Signs Temp Pulse Resp BP Pulse Ox 99.8 F H 72 16 132/71 H 94 10/18/18 06:30 10/18/18 07:34 10/18/18 06:30 10/18/18 06:30 10/18/18 06:30 Oxygen Flow Rate (L/min) 3 Oxygen Delivery Method Room Air Weight: 109.6 kg Body Mass Index (BMI) 27.1 Intake and Output for Last 24 Hours 10/16/18 10/17/18 10/18/18 23:59 23:59 23:59 Intake Total 5535 / 5535 2853 / 2853 3738 / 3738 Output Total 1525 / 1525 125 / 125 Balance 4010 / 4010 2728 / 2728 3738 / 3738 Microbiology Past 72 Hours 10/15/18 16:35 Blood Culture - Preliminary Blood Culture (Wb) - Right Forearm No growth in 48 hours. 10/15/18 17:20 Urine Culture - Final Urine, Clean Catch Culture exhibits no growth. 10/15/18 22:24 Enteric Bacteriology - Final Stool 10/15/18 23:50 Respiratory Panel (PCR) - Final Mucosa - Nose 10/15/18 22:24 C. difficile DNA Amplification - Final Stool Laboratory Tests Past 24 Hrs 10/18/18 07:20 Vancomycin Trough 14.9 POC Glucose 10/17/18 06:43 POC Glucose 193 H Medical Necessity - Tobacco Use Smoking Status: Never smoker Route of nutrition/ use of supplements: [] Nutritional Intake: [] IV Site: [] Delgado Catheter: [] - Assessment/Plan Antibiotics: [] Assessment/Plan: [] Active and Suspected Problems (Last Updated 10/15/18 @ 21:17 by Qamar Medrano MD) Pyuria (Acute) Liver transplant recipient (Acute) Fever, unknown origin (Acute) High fever in liver transplant pt - unclear source. Had single Bcx with ESBL ecoli over a month ago, treated with inpatient zosyn then course of ertapenem as an outpt after ESBL was identified. Had been feeling fine until new onset of fever, chills, headache, diarrhea, diffuse aches, and straining to urinate/weak stream/urinary frequency. CT abd/pelvis showed stable stone, no abscess. UA without pyuria 09/02, 10/14, and 10/15. Resp viral panel neg. Stool pcr and cdiff neg. Now on vanc/antione, feeling better, no further fever. CMV and EBV studies pending. Does have headache again, no focal neuro changes. Bcxs remain neg. Will stop vanc/antione. Head CT pending. I do not see a role for LP at this time, could consider MRI w/contrast of brain. Will follow, d/w Dr. Wolfe.
--- NOTE | 2018-10-18 19:48 | PCM.PROGNOTE ---
Patient Problems: Active and Suspected Problems (Last Reviewed 10/17/18 @ 17:20 by Brandon Boo MD) Pyuria (Acute) Liver transplant recipient (Acute) Fever, unknown origin (Acute) Subjective: The pt is a 68 YO male with a PMH of primary sclerosing cholangitis and liver transplant 20 years ago who presented to the emergency department complaining of fever and headache with generalized weakness and malaise. He had a temp to 102 ?F at home. He had been seen in the emergency room 1 day prior to admission with a complaint of dysuria and work-up was unremarkable at that time. He was discharged on Augmentin. Approximately 1 month ago he was admitted to the hospital for fever, weakness and malaise and had one blood culture positive for an E. coli ESBL. He was treated with Zosyn in the hospital and had 7 doses of ertapenem as an outpatient. Temp has been as high as 104.4 ?F while he has been in the hospital. He has had persistent severe headache with no neck stiffness, no vision changes, no photophobia. Respiratory panel, enteric panel, C. difficile, urine culture and blood cultures have been negative. CMV and EBV titers are pending. He has been seen by Dr. Wright. He is now off scheduled Tylenol. He had been febrile but current temp is 101. Yesterday his headache had improved and today it has recurred. It is not unilateral. He has no neck stiffness and no nuchal rigidity. BS's are diet controlled and HGBA1C is 6.6 Denies abd pain, nausea, CP, SOB, cough, ear pain, rhinorrhea or congestion. Objective: General: Alert, Oriented x3, Cooperative, looks much better today and was able to eat some breakfast. He has better color in his face today but still appears very fatigued HEENT: Atraumatic, PERRLA, Normocephalic Oral: Moist mucosa, no mucosal lesions observed Neck: Supple, No Nuchal Rigidity, Trachea Midline Lungs: Clear to auscultation, Normal air movement Cardiovascular: Regular rate, Regular Rhythm, Normal S1, Normal S2, No murmurs, No rub noted, No Gallop Abdomen: Bowel Sounds Present, Soft, Non Tender, Non-Distended, - Extremities: No clubbing, No cyanosis, No edema - Colostomy bag is in place Skin: No rashes, No breakdown Neurological: Cranial nerves II-XII grossly intact, Neuro grossly intact Psych/Mental Status: Normal Affect, Appropriate - Physical Exam Vital Signs Temp Pulse Resp BP Pulse Ox 101.0 F H 99 16 159/79 H 95 10/18/18 18:30 10/18/18 18:30 10/18/18 18:30 10/18/18 18:30 10/18/18 18:30 Oxygen Flow Rate (L/min) 3 Oxygen Delivery Method Room Air Weight: 241 lb 10.026 oz Body Mass Index (BMI) 27.1 Intake and Output for Last 24 Hours 10/16/18 10/17/18 10/18/18 23:59 23:59 23:59 Intake Total 5535 / 5535 2853 / 2853 3738 / 3738 Output Total 1525 / 1525 125 / 125 Balance 4010 / 4010 2728 / 2728 3738 / 3738 Microbiology Past 72 Hours 10/15/18 16:35 Blood Culture - Preliminary Blood Culture (Wb) - Right Forearm No growth in 48 hours. 10/15/18 17:20 Urine Culture - Final Urine, Clean Catch Culture exhibits no growth. 10/15/18 22:24 Enteric Bacteriology - Final Stool 10/15/18 23:50 Respiratory Panel (PCR) - Final Mucosa - Nose 10/15/18 22:24 C. difficile DNA Amplification - Final Stool Laboratory Tests Past 24 Hrs 10/18/18 07:20 Vancomycin Trough 14.9 POC Glucose 10/17/18 06:43 POC Glucose 193 H Medical Necessity - Tobacco Use Smoking Status: Never smoker Assessment/Plan All Active Problems (Last Reviewed 10/17/18 @ 17:20 by Brandon Boo MD) Pyuria (Acute) Liver transplant recipient (Acute) Fever, unknown origin (Acute) Day #2 Merrem and Vanco Impressions 1. acute febrile illness in an immunocompromised individual on immunosuppressive drugs S/P Liver transplant. Admitted 1 month ago with E. Coli ESBL bacteremia. Source was not identified at that time. Has had dysuria for a few days....given Augmentin in the ED 2 days prior to this admission....dysuria and fevers worsened. Urine and blood cultures have no growth. Enteric pathogen panel, respiratory panel and C. difficile are all negative. EBV and CMV lab is pending 2. S/P liver transplant - with a hx of primary sclerosing cholangitis 3. PTLD - S/P colon resection 4. Chronic kidney disease stage III 5. Hyponatremia - resolved 6. Diet-controlled diabetes mellitus with a hemoglobin A1c of 6.6 7. Paroxysmal atrial fibrillation 8. GERD 9. Dysuria - only 0-5 WBC's on UA but the urine is nitrite positive and leukocyte esterase positive. Culture is negative 10. Nephrolithiasis with a stone in the right kidney -Dr. Boo does not feel that this is a source of infection. 11. BPH-on Flomax with persistent hesitancy and slow stream. Better stream and no hesitancy with increase in the Flomax to 0.4 mg BID I reviewed Dr. Boo's consult and appreciate his input. Discussed with Dr. Wright-will discontinue antibiotics and continue to monitor We discussed LP and he feels since the patient has no nuchal rigidity, no focal headache, no vision changes that LP is not indicated at this time. He recommended MRI with contrast however the patient is very claustrophobic and refuses MRI. CT scan of the brain with and without contrast has been ordered. Continue IV fluids in light of stage III chronic renal failure and contrast Recheck lab in the a.m. Code Visit Inpatient E&M: 41379 Subs Hosp L3
--- NOTE | 2018-10-18 19:57 | NURSING ---
O2@2L VIA NC APPLIED D/T INCREASED HR AND REPORT OF SOB W/ACTIVITY.
--- NOTE | 2018-10-18 20:09 | NURSING ---
pt heart rate tachy into 150's when up to bathroom, pt denies chest pain. returns to low 100's in bed. placed on O2 2L nc for comfort measure. asked pt to use urinal & ask for assist with colostomy in bed at this time. aware per dayshift rn of tachycardia when up. Clarified home med list with pt and pt on metoprolol bid home med list updated and will notify
[2018-10-18] MEDS: Temazepam 15 MG Capsule PO (22:59)
[2018-10-19] VITALS (12 sets, daily range): BP systolic 128–158; BP diastolic 75–87; PULSE 75–96; RESP 16–18; TEMP 36.7–38.9; O2SAT 95–98
[2018-10-19] MEDS: 0.9% NaCl Peripheral Flush Adult/Peds IV (04:53)
[2018-10-19] MEDS: HYDROmorphone 1 MG/ML Syringe IV ×5 (04:53→23:29)
[2018-10-19] MEDS: 0.9% Normal Saline 1,000 ML 150 ML IV ×3 (05:49→19:21)
[2018-10-19 06:49] LABS: Absolute Lymphocyte Count 0.63 X10^3/ul (0.83-4.51); Absolute Neutrophil Count 3.6 X10^3/uL (2.0-7.7); Eosinophil# 0.01 X10^3/uL; Eosinophils% 0.2 % (0-5); Hematocrit 36.7 % (40-54); Hemoglobin 12.8 g/dl (13.0-16.5); Lymphocyte # 0.63 X10^3/ul (4.0); Lymphocyte % 12.7 % (19-41); Mean Corp Hgb Conc 34.9 g/gl (32-36); Mean Corpuscular Hgb 31.5 pg (27.0-32.0); Mean Corpuscular Volume 90.4 fL (80-94); Mean Platelet Vol. 10.3 fl (6.2-12.0); Monocyte# 0.73 X10^3/uL; Monocyte% 14.7 % (0-10); Neutrophil # 3.58 X10^3/uL (2.7-7.7); Platelet Count 96 K/mm3 (150-450); RBC Distribution Width CV 13.1 % (11.6-14.6); RBC Distribution Width SD 42.8 fl (35.1-43.9); Red Blood Count 4.06 M/mm3 (4.6-6.2)
[2018-10-19 06:50] LABS: POSITIVE COUNT NO; POSITIVE DIFFERENTIAL NO; POSITIVE MORPHOLOGY NO
[2018-10-19 07:07] LABS: ALB/GLOB Ratio 0.7 RATIO (0.9-2.4); AST(SGOT) 30 U/L (15-37); Alanine Aminotransfer ALT/SGPT 33 U/L (16-61); Albumin, Serum 2.5 g/dL (3.2-5.0); Alkaline Phosphatase 105 U/L (45-117); Anion Gap 8 (5-15); BUN 11 mg/dL (7-18); BUN/Creat Ratio 7.9 RATIO (10-20); Calcium,Total 7.6 mg/dL (8.5-10.1); Chloride 107 mmol/L (98-107); EST Glomerular Filtration Rate 54 mL/min (>60); Est Glom Filt Rate - Afr Amer 65 mL/min (>60); Estimated Creatinine Clearance 67.86 ml/min; Globulin 3.7 g/dL (2.2-4.2); Glucose 124 mg/dL (74-106); Potassium 3.5 mmol/L (3.5-5.1); Protein, Total 6.2 g/dL (6.4-8.2); Sodium Level 137 mmol/L (136-145)
--- NOTE | 2018-10-19 08:50 | PN_ITS ---
Patient Problems: Active and Suspected Problems (Last Reviewed 10/17/18 @ 17:20 by Brandon Boo MD) Pyuria (Acute) Liver transplant recipient (Acute) Fever, unknown origin (Acute) Subjective: Chief complaint: Follow-up after admission for acute febrile illness/persistent fever without source of infection. Patient seen and examined today. No acute events overnight. This morning, patient complains of frontal headache, very bad headache. Denies associated vision change or neck stiffness. He is still having spikes of fever, other vital signs are stable. - Physical Exam General: Alert, Oriented x3, Cooperative, - - Distress because of severe headache. HEENT: Atraumatic, PERRLA, EOMI, Normocephalic Oral: Moist Mucosa, No Gingival or Mucosal Lesions/ Ulcerations Neck: Supple, No JVD, Negative Carotid Bruits, Trachea Midline, Thyroid Normal Size and Texture Lungs: Clear to auscultation, No rhonchi, No wheeze, No rales, Diminished Cardiovascular: Regular rate, Regular Rhythm, Normal S1, Normal S2, PMI Normal Abdomen: Bowel Sounds Present, Soft, Non Tender, Non-Distended, No Hepato- splenomegaly Extremities: No clubbing, No cyanosis, No edema Skin: No rashes, No breakdown Lymphatic: No Cervical, Supraclavicular, or Inguinal Adenopathy Neurological: Cranial nerves II-XII grossly intact, Neuro grossly intact Psych/Mental Status: Normal Affect, Appropriate, Alert and oriented to time, place, person, mood and affect Vital Signs Temp Pulse Resp BP Pulse Ox 99.9 F H 87 16 128/75 H 98 10/19/18 04:46 10/19/18 07:55 10/19/18 04:46 10/19/18 04:46 10/19/18 04:46 Oxygen Flow Rate (L/min) 2 Oxygen Delivery Method Room Air Weight: 241 lb 10.026 oz Body Mass Index (BMI) 27.1 Intake and Output for Last 24 Hours 10/17/18 10/18/18 10/19/18 23:59 23:59 23:59 Intake Total 2853 / 2853 5367 / 5367 1264 / 1264 Output Total 125 / 125 Balance 2728 / 2728 5367 / 5367 1264 / 1264 Microbiology Past 72 Hours 10/15/18 16:35 Blood Culture - Preliminary Blood Culture (Wb) - Right Forearm No growth in 48 hours. 10/15/18 17:20 Urine Culture - Final Urine, Clean Catch Culture exhibits no growth. 10/15/18 22:24 Enteric Bacteriology - Final Stool 10/15/18 23:50 Respiratory Panel (PCR) - Final Mucosa - Nose Laboratory Tests Past 24 Hrs 10/19/18 10/19/18 06:31 06:31 WBC 5.0 RBC 4.06 L Hgb 12.8 L Hct 36.7 L MCV 90.4 MCH 31.5 MCHC 34.9 RDW 13.1 RDW Differential 42.8 Plt Count 96 L MPV 10.3 Immature Gran % (Auto) 0.400 Neut % (Auto) 72.0 H Lymph % (Auto) 12.7 L [place] % (Auto) 14.7 H Eos % (Auto) 0.2 Baso % (Auto) 0.0 Absolute Neuts (auto) 3.6 Absolute Lymphs (auto) 0.63 L Total Counted Not Reportable Sodium 137 Potassium 3.5 Chloride 107 Carbon Dioxide 22.0 Anion Gap 8 BUN 11 Creatinine 1.40 H Estim Creat Clear Calc 67.86 Est GFR (MDRD) Af Amer 65 Est GFR (MDRD) Non-Af 54 L BUN/Creatinine Ratio 7.9 L Glucose 124 H Calcium 7.6 L Total Bilirubin 1.20 H AST 30 ALT 33 Alkaline Phosphatase 105 Total Protein 6.2 L Albumin 2.5 L Globulin 3.7 Albumin/Globulin Ratio 0.7 L Medical Necessity - Tobacco Use Smoking Status: Never smoker Assessment/Plan All Active Problems (Last Reviewed 10/17/18 @ 17:20 by Brandon Boo MD) Pyuria (Acute) Liver transplant recipient (Acute) Fever, unknown origin (Acute) This is a 68 years old male patient presented to the emergency room because of fever, malaise, headache, urinary frequency and weakness, was in the emergency room yesterday for the same complaint and was discharged home on Augmentin and he returned back because of persistence of symptoms and he is being admitted for evaluation and treatment. #1 acute febrile illness: In an immunocompromised patient. No source of infection identified so far. Antibiotics discontinued. Patient still symptomatic with fever and persistent headache. No photophobia, neck stiffness or vision change. CT scan brain showed no acute findings. Blood culture showed no growth in 48 hours. Urine culture showed no growth. Respiratory panel for viruses came back negative. Stool for enteric pathogens and C. difficile also were negative. Infectious disease on the case and recommended MRI brain but patient refused. Routine blood work from today reviewed, leukocytosis resolved, BMP was unremarkable. CMV and EBV serologies are pending. Plan to continue same treatment, continue to monitor. #2 recent history of E. coli bacteremia: Which was attributed to translocation from gut. Patient completed antibiotics after 1 week of discharge and he feels okay until yesterday. At this time, antibiotics discontinued. Infectious disease on the case. #3 stage III chronic kidney disease: Baseline creatinine is around 1.4-1.7 mg/dL, today's creatinine is 1.40, stable at baseline. #4 paroxysmal atrial fibrillation: In sinus rhythm, stable, continue metoprolol for rate control, he is not on anticoagulations. #5 status post liver transplant: Today, liver transaminases and alkaline phosphatase are normal. Bilirubin is minimally elevated. Lipase is normal on admission. Continue tacrolimus. #6 Diet-controlled diabetes: Sliding scale discontinued. Hemoglobin A1c 6.6. #7 DVT prophylaxis: SCDs, no chemical prophylaxis because of thrombocytopenia. This note was generated with [employer] software. It may contain incorrect words, spelling, and punctuation that were not noted in checking the note before signing. Code Visit Inpatient E&M: 24805 Subs Hosp L2
[2018-10-19] MEDS: Acyclovir 200 MG Capsule 400 MG PO ×2 (08:59→22:23)
[2018-10-19] MEDS: Tacrolimus Anhydrous 1 MG Capsule 6 MG PO ×2 (09:00→22:23)
[2018-10-19] MEDS: Tamsulosin HCl 0.4 MG Capsule PO ×2 (09:00→22:24)
[2018-10-19] MEDS: Metoprolol(XL)Succ 25 MG Tablet PO ×2 (09:00→22:23)
[2018-10-19] MEDS: Acetaminophen 325 MG Tablet 650 MG PO ×3 (09:00→22:24)
[2018-10-19] MEDS: Ursodiol 250 MG Tablet 750 MG PO ×2 (09:00→22:23)
[2018-10-19] MEDS: Famotidine 20 MG Tablet PO (09:00)
[2018-10-19] MEDS: Finasteride 5 MG Tablet PO (09:00)
[2018-10-19] MEDS: RIFAMPIN 150 MG CAPSULE PO ×2 (09:02→22:28)
[2018-10-20] VITALS (13 sets, daily range): BP systolic 109–155; BP diastolic 54–74; PULSE 68–114; RESP 18; TEMP 36.8–39.4; O2SAT 92–98
[2018-10-20] MEDS: 0.9% Normal Saline 1,000 ML 150 ML IV ×2 (01:19→09:03)
[2018-10-20] MEDS: HYDROmorphone 1 MG/ML Syringe IV ×5 (03:35→23:51)
[2018-10-20] MEDS: Famotidine 20 MG Tablet PO (09:04)
[2018-10-20] MEDS: Ursodiol 250 MG Tablet 750 MG PO ×2 (09:04→22:07)
[2018-10-20] MEDS: Tacrolimus Anhydrous 1 MG Capsule 6 MG PO ×2 (09:04→22:06)
[2018-10-20] MEDS: Tamsulosin HCl 0.4 MG Capsule PO ×2 (09:04→22:06)
[2018-10-20] MEDS: Metoprolol(XL)Succ 25 MG Tablet PO ×2 (09:05→22:06)
[2018-10-20] MEDS: Finasteride 5 MG Tablet PO (09:05)
[2018-10-20] MEDS: Acyclovir 200 MG Capsule 400 MG PO ×2 (09:06→22:06)
[2018-10-20] MEDS: Loperamide 2 MG Capsule PO ×2 (09:08→22:06)
[2018-10-20] MEDS: RIFAMPIN 150 MG CAPSULE PO ×2 (09:10→22:07)
--- NOTE | 2018-10-20 09:26 | PN_ITS ---
Patient Problems: Active and Suspected Problems (Last Reviewed 10/17/18 @ 17:20 by Brandon Boo MD) Pyuria (Acute) Liver transplant recipient (Acute) Fever, unknown origin (Acute) Subjective: Chief complaint: Follow-up after admission for acute febrile illness/persistent fever without source of infection. Patient seen and examined. No acute events overnight. He is still complaining of frontal headache but improved compared to yesterday. He is still having spikes of fever up to 102 Fahrenheit overnight. Other vital signs are stable. - Physical Exam General: Alert, Oriented x3, Cooperative, No apparent distress HEENT: Atraumatic, PERRLA, EOMI, Normocephalic Oral: Moist Mucosa, No Gingival or Mucosal Lesions/ Ulcerations Neck: Supple, No JVD, Negative Carotid Bruits, Trachea Midline, Thyroid Normal Size and Texture Lungs: Clear to auscultation, No rhonchi, No wheeze, No rales, Diminished Cardiovascular: Regular rate, Regular Rhythm, Normal S1, Normal S2, PMI Normal Abdomen: Bowel Sounds Present, Soft, Non Tender, Non-Distended, No Hepato- splenomegaly Extremities: No clubbing, No cyanosis, No edema Skin: No rashes, No breakdown Lymphatic: No Cervical, Supraclavicular, or Inguinal Adenopathy Neurological: Cranial nerves II-XII grossly intact, Motor Exam 5/5 strength throughout Psych/Mental Status: Normal Affect, Appropriate, Alert and oriented to time, place, person, mood and affect Vital Signs Temp Pulse Resp BP Pulse Ox 98.8 F 68 18 133/69 H 98 10/20/18 09:17 10/20/18 09:17 10/20/18 09:17 10/20/18 09:17 10/20/18 09:17 Oxygen Flow Rate (L/min) 2 Oxygen Delivery Method Room Air Weight: 241 lb 10.026 oz Body Mass Index (BMI) 27.1 Intake and Output for Last 24 Hours 10/18/18 10/19/18 10/20/18 23:59 23:59 23:59 Intake Total 5367 / 5367 4492 / 4492 598 / 598 Balance 5367 / 5367 4492 / 4492 598 / 598 Microbiology Past 72 Hours 10/16/18 19:55 Blood Culture - Preliminary Blood Culture (Wb) - Anticubital Left No growth in 48 hours. 10/15/18 16:35 Blood Culture - Preliminary Blood Culture (Wb) - Right Forearm No growth in 48 hours. 10/15/18 17:20 Urine Culture - Final Urine, Clean Catch Culture exhibits no growth. Clinical Impression(s) from Imaging Studies Brain CT 10/18/18 13:43 IMPRESSION: No evidence of acute infarct or hemorrhage. Pre and postcontrast MRI correlation is recommended if possible. Electronically Signed: Stef Montalvo MD at 15:52 EDT Tel , Service support , Medical Necessity - Tobacco Use Smoking Status: Never smoker Assessment/Plan All Active Problems (Last Reviewed 10/17/18 @ 17:20 by Brandon Boo MD) Pyuria (Acute) Liver transplant recipient (Acute) Fever, unknown origin (Acute) This is a 68 years old male patient presented to the emergency room because of fever, malaise, headache, urinary frequency and weakness, was in the emergency room yesterday for the same complaint and was discharged home on Augmentin and he returned back because of persistence of symptoms and he is being admitted for evaluation and treatment. #1 acute febrile illness: In an immunocompromised patient. No source of infection identified so far. Antibiotics discontinued 2 days ago. Patient still symptomatic with fever and persistent headache, minimal improvement. No photophobia, neck stiffness or vision change. CT scan brain showed no acute findings. Blood culture showed no growth in 48 hours. Urine culture showed no growth. Respiratory panel for viruses came back negative. Stool for enteric pathogens and C. difficile also were negative. Infectious disease on the case and recommended MRI brain but patient refused. Routine blood work from yesterday reviewed, leukocytosis resolved, BMP was unremarkable. CMV and EBV serologies are pending. I discussed the case with Dr. Andrade, infectious disease, and he recommended lumbar puncture. Plan to continue same treatment, lumbar puncture tomorrow morning, CSF analysis, cell count with differential, CSF glucose, protein, Gram stain, cytology, culture, cryptococcal antigen. #2 recent history of E. coli bacteremia: Which was attributed to translocation from gut. Patient completed antibiotics after 1 week of discharge and he feels okay until yesterday. At this time, antibiotics discontinued. Infectious disease on the case. #3 stage III chronic kidney disease: Baseline creatinine is around 1.4-1.7 mg/dL, yesterday's creatinine is 1.40, stable at baseline. #4 paroxysmal atrial fibrillation: In sinus rhythm, stable, continue metoprolol for rate control, he is not on anticoagulations. #5 status post liver transplant: Today, liver transaminases and alkaline phosphatase are normal. Bilirubin is minimally elevated. Lipase is normal on admission. Continue tacrolimus. #6 Diet-controlled diabetes: Sliding scale discontinued. Hemoglobin A1c 6.6. #7 DVT prophylaxis: SCDs, no chemical prophylaxis because of thrombocytopenia. This note was generated with [employer] dictation software. It may contain incorrect words, spelling, and punctuation that were not noted in checking the note before signing. Code Visit Inpatient E&M: 31898 Subs Hosp L2
[2018-10-20] MEDS: SUMAtriptan 6 MG/0.5 ML Vial SC (14:48)
[2018-10-20] MEDS: 0.9% Normal Saline 1,000 ML 100 ML IV (18:45)
[2018-10-20] MEDS: Rizatriptan Benzoate 10 MG Tablet PO (18:52)
[2018-10-20] MEDS: Acetaminophen 325 MG Tablet 650 MG PO (22:06)
[2018-10-21] VITALS (10 sets, daily range): BP systolic 95–141; BP diastolic 51–73; PULSE 72–93; RESP 16; TEMP 36.6–37.3; O2SAT 93–97
--- NOTE | 2018-10-21 | FLU_PTH ---
PATIENT: RY CARDONA LOC: [facility] U#:[id number] AGE/SX: 68/M ROOM: [facility]305 RE10/15/[address]: Dr. Michelle Holliday MD : 1950 BED: 1 DIS: 10/22/2018 SPEC #: [id number] RECD: 10/21/18 10:25 STATUS: TAE DENYS #: [id number] CHAD: 10/21/18 00:[address]: Michelle Holliday DEPT: CYTOLOGY RECD BY: Kobe Loving ENTERED: 10/21/18 12:26 SP TYPE: Fluid OTHR DR: MD Dr. Sudhir Sandoval MD Dr. Juan Miguel Proano, MD Dr. Robert Leininger, MD Tissues: Cerebrospinal Fluid Procedures: Special Stain Group II Cytospin Fluid HEADER OPERATION: Lumbar puncture PRE-OP DIAGNOSIS: Acute febrile illness; headaches TISSUE SUBMITTED: Cerebrospinal fluid for cytology DIAGNOSIS CYTOLOGY Cerebrospinal fluid for cytology (cytospin): Negative for malignant cells. See comment. SJ:rg 10/22/18 COMMENT The specimen is paucicellular. CYTOLOGY STUDY Slides are reviewed. CYTOLOGY GROSS Received is 3 ml of clear colorless labeled with the patient's name and and designated per the requisition as CSF. Submitted for cytology preparation. / CC:cc 10/21/18 TC:4 CPT: 57841
[2018-10-21] MEDS: DiphenhydrAMINE 50 MG/ML Syringe 25 MG IV (01:33)
[2018-10-21] MEDS: 0.9% Normal Saline 1,000 ML 100 ML IV ×2 (04:16→16:16)
[2018-10-21] MEDS: HYDROmorphone 1 MG/ML Syringe IV ×4 (04:20→20:21)
--- NOTE | 2018-10-21 09:35 | RAD_ITS ---
PROCEDURE: Fluoroscopic guided Lumbar Puncture. DATE: October 21, 2018 CLINICAL INDICATION: Headaches PHYSICIAN: Grant Lockwood M.D. MEDICATIONS: 1% lidocaine administered subcutaneously for local anesthesia. ACCESS SITE: Lower posterior back. NEEDLE: 22-gauge spinal needle. SPECIMEN: Approximately 7 mL clear]CSF fluid. FLUOROSCOPY TIME (if supplied): (3:26) minutes/seconds COMPLICATIONS: None immediate. The risks, benefits, and alternatives to the procedure were explained to the patient. The specific risks of bleeding, infection, and neurovascular injury were detailed and accepted. Witnessed informed consent was obtained. The patient was placed on the fluoroscopic table in the prone position. The level for needle entry was determined and marked. The overlying skin was cleaned and prepped in the usual sterile fashion. 2% lidocaine was administered subcutaneously for local anesthesia. Under fluoroscopic guidance a 22-gauge spinal needle was advanced. The thecal sac was entered at the L3- L4 vertebral level. The inner stylet was removed. There was spontaneous flow of clear CSF fluid. The patient was placed in a reversed Trendelenburg position. Approximately 7 mL of cerebrospinal fluid was collected using gravity. The specimen was collected and submitted to the laboratory for further evaluation. The needle was withdrawn,. Hemostasis was achieved and a sterile dressing placed. The patient tolerated the procedure well without any immediate complications. The patient was placed supine with head elevated and returned to the floor in stable condition. RAD/Fluoro Guided Lumbar Puncture IMPRESSION: Successful fluoroscopic-guided lumbar puncture. Electronically Signed: Grant Lockwood, at 11:24 EDT , Service support ,
--- NOTE | 2018-10-21 10:07 | PN_ITS ---
Patient Problems: Active and Suspected Problems (Last Reviewed 10/17/18 @ 17:20 by Brandon Boo MD) Pyuria (Acute) Liver transplant recipient (Acute) Fever, unknown origin (Acute) Subjective: Patient was seen and examined. Complains of severe bilateral temporal pain. Still having fevers, T-max was 102.9F Vitals/I&O's: Vital Signs Temp Pulse Resp BP Pulse Ox 98.0 F 72 16 103/51 L 97 10/21/18 08:54 10/21/18 08:54 10/21/18 08:54 10/21/18 08:54 10/21/18 08:54 Oxygen Flow Rate (L/min) 2 Oxygen Delivery Method Room Air Weight: 109.6 kg Body Mass Index (BMI) 27.1 Intake and Output for Last 24 Hours 10/19/18 10/20/18 10/21/18 23:59 23:59 23:59 Intake Total 4492 / 4492 3985 / 3985 468 / 468 Balance 4492 / 4492 3985 / 3985 468 / 468 General: Alert, Oriented x3, Cooperative, - - in some distress, having a headache HEENT: Atraumatic, PERRLA, EOMI, Normocephalic Oral: Moist Mucosa Neck: Supple Lungs: Clear to auscultation, Normal air movement Cardiovascular: Regular rate, Regular Rhythm, Normal S1, Normal S2, No murmurs Abdomen: Bowel Sounds Present, Soft, Non Tender, Non-Distended, No Hepato- splenomegaly Extremities: No edema Skin: No rashes, No breakdown Musculoskeletal: No Tenderness to Palpation of Joints or Extremities Lymphatic: No Cervical, Supraclavicular, or Inguinal Adenopathy Neurological: Cranial nerves II-XII grossly intact, Neuro grossly intact Psych/Mental Status: Normal Affect, Appropriate Microbiology Past 72 Hours 10/15/18 16:35 Blood Culture (Wb) - Right Forearm Blood Culture - Final No growth in 5 days. 10/16/18 19:55 Blood Culture (Wb) - Anticubital Left Blood Culture - Preliminary No growth in 48 hours. 10/15/18 17:20 Urine, Clean Catch Urine Culture - Final Culture exhibits no growth. Current Medications Acetaminophen (Tylenol) 650 mg PO Q6H PRN PRN PRN Reason: pain/temp Last Admin: 10/20/18 22:06 Dose: 650 mg Acyclovir (Zovirax) 400 mg PO BID [facility] Last Admin: 10/20/18 22:06 Dose: 400 mg Diphenhydramine HCl (Benadryl) 25 mg IV Q6H PRN PRN PRN Reason: ITCHING Last Admin: 10/21/18 01:33 Dose: 25 mg Famotidine (Pepcid) 20 mg PO DAILY [facility] Last Admin: 10/20/18 09:04 Dose: 20 mg Finasteride (Proscar) 5 mg PO DAILY [facility] Last Admin: 10/20/18 09:05 Dose: 5 mg Hydromorphone HCl (Dilaudid Inj) 1 mg IV Q4H PRN PRN PRN Reason: SEVERE PAIN (6-04/03) Last Admin: 10/21/18 04:20 Dose: 1 mg Sodium Chloride () 1,000 mls @ 100 mls/hr IV .Q10H [facility] Last Admin: 10/21/18 04:16 Dose: 100 mls/hr Loperamide HCl (Imodium) 2 mg PO Q4H PRN PRN PRN Reason: Diarrhea Last Admin: 10/20/18 22:06 Dose: 2 mg Metoprolol Succinate (Toprol Xl (Beta Cheri)) 25 mg PO BID [facility] Last Admin: 10/20/18 22:06 Dose: 25 mg Ondansetron HCl (Zofran) 4 mg IV Q8H PRN PRN PRN Reason: NAUSEA/VOMITING Last Admin: 10/16/18 23:06 Dose: 4 mg Oxymetazoline HCl (Afrin (Bkc)) 2 spray NASAL BID PRN PRN Reason: NASAL CONGESTION Last Admin: 10/17/18 10:23 Dose: 2 spray Promethazine HCl (Phenergan) 12.5 mg IV Q4H PRN PRN PRN Reason: NAUSEA/VOMITING Rifampin (Rifadin) 150 mg PO BID [facility] Last Admin: 10/20/18 22:07 Dose: 150 mg Rizatriptan Benzoate (Maxalt) 10 mg PO .[X1 PRN] PRN PRN Reason: MIGRAINE SYMPTOMS Last Admin: 10/20/18 18:52 Dose: 10 mg Sodium Chloride () 5 - 15 ml IV UD PRN PRN Reason: SALINE FLUSH Last Admin: 10/19/18 04:53 Dose: 10 ml Tacrolimus (Prograf) 6 mg PO Q12 [facility] Last Admin: 10/20/18 22:06 Dose: 6 mg Tamsulosin HCl (Flomax) 0.4 mg PO BID [facility] Last Admin: 10/20/18 22:06 Dose: 0.4 mg Temazepam (Restoril) 15 mg PO QHS PRN PRN PRN Reason: SLEEP Last Admin: 10/18/18 22:59 Dose: 15 mg Ursodiol (Elsa) 750 mg PO BID [facility] Last Admin: 10/20/18 22:07 Dose: 750 mg Medical Necessity - Tobacco Use Smoking Status: Never smoker Assessment/Plan All Active Problems (Last Reviewed 10/17/18 @ 17:20 by Brandon Boo MD) Pyuria (Acute) Liver transplant recipient (Acute) Fever, unknown origin (Acute) 68 years old male admitted with fever, malaise, headache, urinary frequency and weakness. He was seen previously for similar complaints and discharged on Augmentin, he came back to the ED with similar complaints. 1. Fever of unclear etiology, in an immunocompromised patient. No identifiable source, infectious disease consulted, a chest CT scan was negative, blood cult ures have been negative. Urine cultures negative. Respiratory panel negative for acute fundic pathogen sensitive was negative. CMV and EBV serologies are pending. Patient is on acyclovir. That is post lumbar puncture today, CSF is unremarkable Patient's family is requesting transfer to the [facility] 2. Recent history of E. coli bacteremia secondary to translocation from gut 3. Stage III chronic kidney disease, Cr is 1.40, down from 1.70, will trend labs 4. Paroxysmal atrial fibrillation, in NSR, on metoprolol for rate control, not on anticoagulations. 5. Status post liver transplant, on tacrolimus. 6. Type II DM, diet controlled, HbA1c 6.6, will continue to monitor. 7. DVT prophylaxis - SCDs, on account of thrombocytopenia. Code Visit Inpatient E&M: 19040 Subs Hosp L2
[2018-10-21 10:33] LABS: Cytology, Body Fluid / CSF SEE PATHOLOGY REPORT
[2018-10-21] MEDS: Ursodiol 250 MG Tablet 750 MG PO ×2 (10:50→20:34)
[2018-10-21] MEDS: Acyclovir 200 MG Capsule 400 MG PO ×2 (10:50→20:34)
[2018-10-21 10:51] LABS: Appearance CSF (character) CLEAR (Clear); Auto B Fluid Analyzer BKGD Ct COUNTS W/IN LIMITS (W/IN LIMITS); CSF Color COLORLESS (Colorless); Tested Tube # 1
[2018-10-21] MEDS: Tamsulosin HCl 0.4 MG Capsule PO ×2 (10:51→20:34)
[2018-10-21] MEDS: Metoprolol(XL)Succ 25 MG Tablet PO ×2 (10:51→20:33)
[2018-10-21] MEDS: Famotidine 20 MG Tablet PO (10:51)
[2018-10-21 10:52] LABS: Total Cell Count CSF 0.006 10^3/uL (0.000-0.000); White Count, CSF 0.005 10^3/uL (0.000-0.005)
[2018-10-21] MEDS: Finasteride 5 MG Tablet PO (10:52)
[2018-10-21] MEDS: Tacrolimus Anhydrous 1 MG Capsule 6 MG PO ×2 (10:52→20:34)
[2018-10-21] MEDS: RIFAMPIN 150 MG CAPSULE PO ×2 (10:55→20:36)
[2018-10-21 11:20] LABS: RBC Count, Spinal Fluid 20 /mm-3 (None seen)
[2018-10-21 11:40] LABS: Lymphocytes,CSF 60 % (40 - 80); Neutrophils,CSF 40 % (0 - 6)
[2018-10-21 11:41] LABS: Body Fluid QC Type(s) BF1Q
[2018-10-21 13:22] LABS: Glucose Spinal Fluid 72 mg/dL (40-75)
[2018-10-21] MEDS: Rizatriptan Benzoate 10 MG Tablet PO (13:37)
[2018-10-21] MEDS: Ketorolac 30 MG/ML Syringe IV (15:19)
[2018-10-21] MEDS: Pantoprazole Sodium 40 MG Tablet PO (15:21)
--- NOTE | 2018-10-21 16:28 | PCM.PN.ID ---
Patient Problems: Active and Suspected Problems (Last Reviewed 10/17/18 @ 17:20 by Brandon Boo MD) Pyuria (Acute) Liver transplant recipient (Acute) Fever, unknown origin (Acute) Subjective: Not feeling well. Ongoing severe headache, still with fevers, still with diarrhea (unchanged from admit). LP done. - Physical Exam General: Alert, Cooperative, - - uncomfortable Neck: Supple Lungs: Clear to auscultation, Normal air movement Cardiovascular: Regular rate, Regular Rhythm Abdomen: Soft, Non Tender, Non-Distended Skin: No rashes Vital Signs Temp Pulse Resp BP Pulse Ox 99.1 F 92 16 141/73 H 97 10/21/18 13:34 10/21/18 15:57 10/21/18 13:34 10/21/18 13:34 10/21/18 13:34 Oxygen Flow Rate (L/min) 2 Oxygen Delivery Method Room Air Weight: 109.6 kg Body Mass Index (BMI) 27.1 Intake and Output for Last 24 Hours 10/19/18 10/20/18 10/21/18 23:59 23:59 23:59 Intake Total 4492 / 4492 3985 / 3985 468 / 468 Balance 4492 / 4492 3985 / 3985 468 / 468 Microbiology Past 72 Hours 10/21/18 10:14 Gram Stain - Final Fluid - Other 10/15/18 22:24 Ova and Parasites - Final Stool 10/15/18 16:35 Blood Culture - Final Blood Culture (Wb) - Right Forearm No growth in 5 days. 10/16/18 19:55 Blood Culture - Preliminary Blood Culture (Wb) - Anticubital Left No growth in 48 hours. Laboratory Tests Past 24 Hrs 10/21/18 10/21/18 10/21/18 10:09 10:09 10:09 Fluid Source Fluid Color Fluid Appearance Fluid WBC Fluid RBC Fluid Tot Cell Count Fluid Neutrophils Fluid Lymphocytes Fluid Monocytes Fluid Plasma Cells Fluid Macrophages Fld Mesothelial Cells Fluid Other Cells Fl Pathologist Comment Fluid Glucose Cancelled Fluid Total Protein Cancelled Fluid Comment 2 CSF Appearance CSF Color CSF WBC CSF RBC CSF Cell Count Tube # CSF Total Cell Counted CSF Neutrophils CSF Lymphocytes CSF Comment CSF Glucose 72 CSF Total Protein 60.0 H CSF Cryptococcus Ag Pending Miscellaneous Cytology 10/21/18 10/21/18 10:14 10:14 Fluid Source Cancelled Fluid Color Cancelled Fluid Appearance Cancelled Fluid WBC Cancelled Fluid RBC Cancelled Fluid Tot Cell Count Cancelled Fluid Neutrophils Cancelled Fluid Lymphocytes Cancelled Fluid Monocytes Cancelled Fluid Plasma Cells Cancelled Fluid Macrophages Cancelled Fld Mesothelial Cells Cancelled Fluid Other Cells Cancelled Fl Pathologist Comment Cancelled Fluid Glucose Fluid Total Protein Fluid Comment 2 Cancelled CSF Appearance CLEAR CSF Color COLORLESS CSF WBC 0.005 CSF RBC 20 H CSF Cell Count Tube # 1 CSF Total Cell Counted 0.006 H CSF Neutrophils 40 H CSF Lymphocytes 60 CSF Comment May follow CSF Glucose CSF Total Protein CSF Cryptococcus Ag Miscellaneous Cytology Pending Medical Necessity - Tobacco Use Smoking Status: Never smoker Route of nutrition/ use of supplements: [] Nutritional Intake: [] IV Site: [] Delgado Catheter: [] - Assessment/Plan Antibiotics: [] Assessment/Plan: [] Active and Suspected Problems (Last Updated 10/15/18 @ 21:17 by Qamar Medrano MD) Pyuria (Acute) Liver transplant recipient (Acute) Fever, unknown origin (Acute) High fever in liver transplant pt - unclear source. Had single Bcx with ESBL ecoli over a month ago, treated with inpatient zosyn then course of ertapenem as an outpt after ESBL was identified. Had been feeling fine until new onset of fever, chills, headache, diarrhea, diffuse aches, and straining to urinate/weak stream/urinary frequency. CT abd/pelvis showed stable stone, no abscess. UA without pyuria 09/02, 10/14, and 10/15. Resp viral panel neg. Stool pcr and cdiff neg. Was started on vanc/antione. Fever 10/16 to 104.4. Then afebrile 10/17. Had rapid resolution of urinary symptoms. With negative cxs from 10/14 and from admit 10/15, vanc/antione stopped in afternoon 10/18. Fever to 101 that evening at 1800, then 102 on 10/19, then 102.9 on 10/20. Ongoing severe headache, still with diarrhea. Normal wbc. CMV pcr pending, EBV Abs pending. LP done this AM, CSF wbc 5, rbc 20k, 40% neutrophils. Given lack of improvement and no clear answers, would favor transfer to [facility]. If he stays here, recommend neuro eval, lower scope for biopsy to eval for cmv colitis, and empiric ganciclovir while cmv pcr is pending. Will follow, d/w Dr. Hodgson
[2018-10-21] MEDS: Acetaminophen 325 MG Tablet 650 MG PO (18:53)
[2018-10-21] MEDS: Temazepam 15 MG Capsule PO (20:33)
[2018-10-21] MEDS: Loperamide 2 MG Capsule PO (20:33)
[2018-10-21] MEDS: SUMAtriptan 6 MG/0.5 ML Vial SC (22:25)
[2018-10-22 00:31] VITALS: BP 141/70; PULSE 77; RESP 18; TEMP 36.6; O2SAT 95
[2018-10-22] MEDS: 0.9% Normal Saline 1,000 ML 100 ML IV (00:32)
[2018-10-22] MEDS: HYDROmorphone 1 MG/ML Syringe IV ×2 (00:32→05:28)
[2018-10-22] MEDS: Loperamide 2 MG Capsule PO ×2 (00:32→07:46)
[2018-10-22 01:11] VITALS: PULSE 84
[2018-10-22] MEDS: DiphenhydrAMINE 50 MG/ML Syringe 25 MG IV (03:24)
[2018-10-22] MEDS: 0.9% NaCl Peripheral Flush Adult/Peds IV ×5 (03:24→08:17)
[2018-10-22] MEDS: Ketorolac 15 MG/ML Vial IV ×2 (03:24→08:17)
[2018-10-22 03:27] VITALS: BP 142/72; PULSE 77; RESP 14; TEMP 36.9; O2SAT 95
--- NOTE | 2018-10-22 04:21 | NURSING ---
Call from [facility]. Pt has a bed in [facility] - bed G80-18. Call report [phone]. Passed on to CHRIS Mckeon.
--- NOTE | 2018-10-22 05:30 | NURSING ---
Called [facility] to transport pt. Because the pt is requesting the transfer, they indicated they would need payment up front. I contacted Ina, Nursing Senior Support Analyst, and she said we should wait to talk to Dr. Holliday when she comes in this morning to see what we can do.
--- NOTE | 2018-10-22 07:32 | PN_ITS ---
Patient Problems: Active and Suspected Problems (Last Reviewed 10/17/18 @ 17:20 by Brandon Boo MD) Pyuria (Acute) Liver transplant recipient (Acute) Fever, unknown origin (Acute) Subjective: Patient was seen and examined. He feels much improved with scheduled Toradol and Dilaudid as needed. He still has a headache but is not as pounding. Denies any dizziness or shortness of breath. He has remained afebrile over the last 24 hours. Discussed with infectious disease yesterday, given lack of improvement and no clear answers, patient has history of transplant from the [facility], with family's approval, patient was accepted by the [facility]. Pending transfer to the [facility] will be today. Objective: Physical exam: General: Alert, oriented x3, cooperative, - - in some distress, having a headache HEENT: Atraumatic, PERRLA, EOMI, Normocephalic Oral: Moist Mucosa Neck: Supple Lungs: Clear to auscultation, Normal air movement Cardiovascular: Regular rate, Regular Rhythm, Normal S1, Normal S2, No murmurs Abdomen: Bowel Sounds Present, Soft, Non Tender, Non-Distended, No Hepato-splenomegaly Extremities: No edema Skin: No rashes, No breakdown Musculoskeletal: No Tenderness to Palpation of Joints or Extremities Lymphatic: No Cervical, Supraclavicular, or Inguinal Adenopathy Neurological: Cranial nerves II-XII grossly intact, Neuro grossly intact Psych/Mental Status: Normal Affect, Appropriate Vitals/I&O's: Vital Signs Temp Pulse Resp BP Pulse Ox 98.4 F 77 14 142/72 H 95 10/22/18 03:27 10/22/18 03:27 10/22/18 03:27 10/22/18 03:27 10/22/18 03:27 Oxygen Flow Rate (L/min) 2 Oxygen Delivery Method Room Air Weight: 109.6 kg Body Mass Index (BMI) 27.1 Intake and Output for Last 24 Hours 10/20/18 10/21/18 10/22/18 23:59 23:59 23:59 Intake Total 3985 / 3985 468 / 468 2710 / 2710 Balance 3985 / 3985 468 / 468 2710 / 2710 Microbiology Past 72 Hours 10/21/18 10:14 Fluid - Other Gram Stain - Final 10/15/18 22:24 Stool Ova and Parasites - Final 10/15/18 16:35 Blood Culture (Wb) - Right Forearm Blood Culture - Final No growth in 5 days. 10/16/18 19:55 Blood Culture (Wb) - Anticubital Left Blood Culture - Preliminary No growth in 48 hours. Laboratory Results 10/21/18 10:09: Fluid Glucose Cancelled, Fluid Total Protein Cancelled 10/21/18 10:09: CSF Cryptococcus Ag Pending 10/21/18 10:09: CSF Glucose 72, CSF Total Protein 60.0 H 10/21/18 10:14: Fluid Source Cancelled, Fluid Color Cancelled, Fluid Appearance Cancelled, Fluid WBC Cancelled, Fluid RBC Cancelled, Fluid Tot Cell Count Cancelled, Fluid Neutrophils Cancelled, Fluid Lymphocytes Cancelled, Fluid Monocytes Cancelled, Fluid Plasma Cells Cancelled, Fluid Macrophages Cancelled, Fld Mesothelial Cells Cancelled, Fluid Other Cells Cancelled, Fl Pathologist Comment Cancelled, Fluid Comment 2 Cancelled, CSF Appearance CLEAR, CSF Color COLORLESS, CSF WBC 0.005, CSF RBC 20 H, CSF Cell Count Tube # 1, CSF Total Cell Counted 0.006 H, CSF Neutrophils 40 H, CSF Lymphocytes 60, CSF Comment May follow 10/21/18 10:14: Miscellaneous Cytology Pending Current Medications Acetaminophen (Tylenol) 650 mg PO Q6H PRN PRN PRN Reason: pain/temp Last Admin: 10/21/18 18:53 Dose: 650 mg Acyclovir (Zovirax) 400 mg PO BID [facility] Last Admin: 10/21/18 20:34 Dose: 400 mg Diphenhydramine HCl (Benadryl) 25 mg IV Q6H PRN PRN PRN Reason: ITCHING Last Admin: 10/22/18 03:24 Dose: 25 mg Famotidine (Pepcid) 20 mg PO DAILY [facility] Last Admin: 10/21/18 10:51 Dose: 20 mg Finasteride (Proscar) 5 mg PO DAILY [facility] Last Admin: 10/21/18 10:52 Dose: 5 mg Hydromorphone HCl (Dilaudid Inj) 1 mg IV Q4H PRN PRN PRN Reason: SEVERE PAIN (6-10/10) Last Admin: 10/22/18 05:28 Dose: 1 mg Sodium Chloride () 1,000 mls @ 100 mls/hr IV .Q10H [facility] Last Admin: 10/22/18 00:32 Dose: 100 mls/hr Ketorolac Tromethamine (Toradol) 15 mg IV Q6 PRN PRN Reason: PAIN Stop: 10/26/18 18:56 Last Admin: 10/22/18 03:24 Dose: 15 mg Loperamide HCl (Imodium) 2 mg PO Q4H PRN PRN PRN Reason: Diarrhea Last Admin: 10/22/18 00:32 Dose: 2 mg Metoprolol Succinate (Toprol Xl (Beta Cheri)) 25 mg PO BID [facility] Last Admin: 10/21/18 20:33 Dose: 25 mg Ondansetron HCl (Zofran) 4 mg IV Q8H PRN PRN PRN Reason: NAUSEA/VOMITING Last Admin: 10/16/18 23:06 Dose: 4 mg Oxymetazoline HCl (Afrin (Bkc)) 2 spray NASAL BID PRN PRN Reason: NASAL CONGESTION Last Admin: 10/17/18 10:23 Dose: 2 spray Pantoprazole Sodium (Protonix) 40 mg PO DAILY [facility] Last Admin: 10/21/18 15:21 Dose: 40 mg Promethazine HCl (Phenergan) 12.5 mg IV Q4H PRN PRN PRN Reason: NAUSEA/VOMITING Rifampin (Rifadin) 150 mg PO BID [facility] Last Admin: 10/21/18 20:36 Dose: 150 mg Rizatriptan Benzoate (Maxalt) 10 mg PO .[X1 PRN] PRN PRN Reason: MIGRAINE SYMPTOMS Last Admin: 10/21/18 13:37 Dose: 10 mg Sodium Chloride () 5 - 15 ml IV UD PRN PRN Reason: SALINE FLUSH Last Admin: 10/19/18 04:53 Dose: 10 ml Sodium Chloride () 5 - 15 ml IV UD PRN PRN Reason: SALINE FLUSH Last Admin: 10/22/18 05:28 Dose: 10 ml Tacrolimus (Prograf) 6 mg PO Q12 [facility] Last Admin: 10/21/18 20:34 Dose: 6 mg Tamsulosin HCl (Flomax) 0.4 mg PO BID [facility] Last Admin: 10/21/18 20:34 Dose: 0.4 mg Temazepam (Restoril) 15 mg PO QHS PRN PRN PRN Reason: SLEEP Last Admin: 10/21/18 20:33 Dose: 15 mg Ursodiol (Elsa) 750 mg PO BID [facility] Last Admin: 10/21/18 20:34 Dose: 750 mg Medical Necessity - Tobacco Use Smoking Status: Never smoker Assessment/Plan All Active Problems (Last Reviewed 10/17/18 @ 17:20 by Brandon Boo MD) Pyuria (Acute) Liver transplant recipient (Acute) Fever, unknown origin (Acute) 68 years old male admitted with fever, malaise, headache, urinary frequency and weakness. He was seen previously for similar complaints and discharged on Augmentin, he came back to the ED with similar complaints. 1. Fever of unclear etiology, in an immunocompromised patient. No identifiable source, infectious disease consulted, a chest CT scan was negative, blood cultures have been negative. Urine cultures negative. Respiratory panel negative for acute fundic pathogen sensitive was negative. CMV and EBV serologi es are pending. Patient is on acyclovir. He is status post lumbar puncture- CSF showed WBC 5, RBC 20, Neutrophils 40%. Remains off antibiotics. Discussed with ID physician; given lack of clear improvement and no clear answers at this time, patient will be transferred to the [facility] main campus. 2. Recent history of E. coli bacteremia secondary to translocation from gut, completed antibiotics. 3. Stage III chronic kidney disease, remains at baseline. 4. Paroxysmal atrial fibrillation, in NSR, on metoprolol for rate control, not on anticoagulations. 5. Status post liver transplant, on tacrolimus. 6. Type II DM, diet controlled, HbA1c 6.6, will continue to monitor. 7. DVT prophylaxis - SCDs, on account of thrombocytopenia. Code Visit Inpatient E&M: 32968 Subs Hosp L2
--- NOTE | 2018-10-22 14:36 | DCINST_ITS ---
- Discharge Diagnoses Reason(s) for Visit for Discharge Instructions: fever You will use the following diet at home:: Cardiac Your food should be the consistency of: Regular Your liquids should be the consistency of: Regular/Thin Discharge Activity: Return to Normal Activity Allergies/Adverse Reactions: Allergies acetaminophen [From Tylenol] Allergy (Verified 10/15/18 14:45) Itching morphine Allergy (Verified 10/15/18 14:45) Shortness of breath naltrexone Allergy (Verified 10/15/18 14:45) Shortness of breath naproxen sodium [From Aleve] Allergy (Verified 10/15/18 14:45) Itching aspirin Adverse Reaction (Verified 10/15/18 14:45) Other DUE TO LIVER Medications to take at Discharge Acyclovir 400 mg PO BID 11/17/15 Cholecalciferol (VIT D3) [Vitamin D3] 2,000 unit PO DAILY 11/17/15 Multivitamin [Daily Multiple Vitamin] 1 ea PO DAILY 11/17/15 Rifampin [Rifadin] 150 mg PO BID 11/17/15 Smz/Tmp Ds [Bactrim Ds] 1 tab PO MOWEFR 11/17/15 Temazepam 15 mg PO QHS PRN PRN 11/17/15 Ursodiol [Elsa] 750 mg PO BID 11/17/15 tacrolimus 1 mg capsule 6 mg PO Q12H 06/11/18 tamsulosin 0.4 mg capsule 0.4 mg PO DAILY 06/11/18 Metoprolol(XL)Succ [Toprol Xl (Beta Cheri)] 25 mg PO BID 09/01/18 ranitidine 150 mg tablet 150 mg PO DAILY tab 09/20/18 Amox/Clavulanate Tablet [Augmentin Tablet] 875 mg PO Q12H #20 tablet 10/14/18 Oxymetazoline HCl [Afrin] 30 ml NS BID PRN 10/15/18 Primary Care Physician: Sudhir Richter MD [Primary Care Provider] - Test Results: Test results from this visit will be discussed in further detail at your follow- up appointment, if applicable. Proposed Discharge Date: 10/22/18
--- NOTE | 2018-10-22 14:36 | PCM.DC.SUM ---
Discharge Date and Diagnosis Date of Admission: 10/15/18 Date of Discharge: 10/22/18 - Primary Discharge Diagnosis Fever of unknown etiology Recent history of E. 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 No demonstrated acute cardiopulmonary process. Electronically Signed: Bacilio Hills MD at 17:12 EDT , Service support , Abdomen/Pelvis CT 10/15/18 17:32 IMPRESSION: Stable postoperative change including liver transplant. There is pneumobilia. Resection of the colon with right lower quadrant ostomy. No obstruction. Stable right renal calcification. No hydronephrosis. Electronically Signed: Bacilio Hills MD at 19:51 EDT , Service support , Brain CT 10/18/18 13:43 IMPRESSION: No evidence of acute infarct or hemorrhage. Pre and postcontrast MRI correlation is recommended if possible. Electronically Signed: Stef Montalvo MD at 15:52 EDT Tel , Service support , Lumbar Puncture Fluoroscopy 10/21/18 09:35 IMPRESSION: Successful fluoroscopic-guided lumbar puncture. 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 He was seen previously for similar complaints and discharged on Augmentin, he came back to the ED with similar complaints. Patient has history of liver transplant 20 years ago. No identifiable source of infection was seen in this patient in this hospitalization. Infectious disease was consulted. CT scan of the brain was negative. Chest x-ray was negative. Blood cultures were negative, urine cultures negative, respiratory panel negative. Patient was started on acyclovir. Initially started on IV vancomycin. Antibiotics were discontinued by infectious disease when no source of infection was found in cultures came back negative. Patient had severe headache throughout this hospital stay, was given Imitrex, IV Toradol with some relief. He was reluctant to have MRI as he was claustrophobic. He refused to be medicated for it. Patient underwent lumbar puncture that showed WBC 5, RBC 20, Neutrophils 40%. CMV and EBV serologies were pending at the time of discharge. Given the fact that there was no clear improvement of after days in the hospital and the fact that patient had continued to have persistent fever, it was felt that patient should be evaluated by a tertiary center. His chose [facility] and patient was accepted and transferred. Subjective: See progress note of the day Objective: See progress note of the day - Physical Exam Vital Signs Temp Pulse Resp BP Pulse Ox 98.4 F 77 14 142/72 H 95 10/22/18 03:27 10/22/18 03:27 10/22/18 03:27 10/22/18 03:27 10/22/18 03:27 Oxygen Flow Rate (L/min) 2 Oxygen Delivery Method Room Air Weight: 109.6 kg Body Mass Index (BMI) 27.1 Intake and Output for Last 24 Hours 10/20/18 10/21/18 10/22/18 23:59 23:59 23:59 Intake Total 3985 / 3985 468 / 468 2710 / 2710 Balance 3985 / 3985 468 / 468 2710 / 2710 Microbiology Past 72 Hours 10/21/18 10:14 Gram Stain - Final Fluid - Other Body Fluid Culture - Preliminary No growth-Final to follow 10/16/18 19:55 Blood Culture - Final Blood Culture (Wb) - Anticubital Left No growth in 5 days. 10/15/18 22:24 Ova and Parasites - Final Stool 10/15/18 16:35 Blood Culture - Final Blood Culture (Wb) - Right Forearm No growth in 5 days. Laboratory Tests Past 24 Hrs 10/21/18 10:14 Miscellaneous Cytology SEE PATHOLOGY REPORT Discharge Diet: Low fat/ Low Cholesterol, Carb Control Diet Discharge Activity: Return to Normal Activity Home Medications: Medications to take at Discharge Acyclovir 400 mg PO BID 11/17/15 Cholecalciferol (VIT D3) [Vitamin D3] 2,000 unit PO DAILY 11/17/15 Multivitamin [Daily Multiple Vitamin] 1 ea PO DAILY 11/17/15 Rifampin [Rifadin] 150 mg PO BID 11/17/15 Smz/Tmp Ds [Bactrim Ds] 1 tab PO MOWEFR 11/17/15 Temazepam 15 mg PO QHS PRN PRN 11/17/15 Ursodiol [Elsa] 750 mg PO BID 11/17/15 tacrolimus 1 mg capsule 6 mg PO Q12H 06/11/18 tamsulosin 0.4 mg capsule 0.4 mg PO DAILY 06/11/18 Metoprolol(XL)Succ [Toprol Xl (Beta Cheri)] 25 mg PO BID 09/01/18 ranitidine 150 mg tablet 150 mg PO DAILY tab 09/20/18 Amox/Clavulanate Tablet [Augmentin Tablet] 875 mg PO Q12H #20 tablet 10/14/18 Oxymetazoline HCl [Afrin] 30 ml NS BID PRN 10/15/18 Primary Care Physician: Sudhir Richter MD [Primary Care Provider] - Disposition: Acute care Hospital Minutes spent on discharge:: 45 Patient Condition:: Stable Medical Necessity - Tobacco Use Smoking Status: Never smoker Tobacco Use: Non-smoker Meaningful Use Info Meaningful Use Diagnoses (Choose all that apply): None applicable Code Visit Inpatient E&M: 39619 Disch Hosp
--- NOTE | 2018-10-22 14:41 | DS.PCM_ITS ---
Discharge Date and Diagnosis Date of Admission: 10/15/18 Date of Discharge: 10/22/18 - Primary Discharge Diagnosis Fever of unknown etiology Recent history of E. 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 No demonstrated acute cardiopulmonary process. Electronically Signed: Bacilio Hills MD at 17:12 EDT , Service support , Abdomen/Pelvis CT 10/15/18 17:32 IMPRESSION: Stable postoperative change including liver transplant. There is pneumobilia. Resection of the colon with right lower quadrant ostomy. No obstruction. Stable right renal calcification. No hydronephrosis. Electronically Signed: Bacilio Hills MD at 19:51 EDT , Service support , Brain CT 10/18/18 13:43 IMPRESSION: No evidence of acute infarct or hemorrhage. Pre and postcontrast MRI correlation is recommended if possible. Electronically Signed: Stef Montalvo MD at 15:52 EDT Tel , Service support , Lumbar Puncture Fluoroscopy 10/21/18 09:35 IMPRESSION: Successful fluoroscopic-guided lumbar puncture. Electronically Signed: Grant Lockwood, at 11:24 EDT , Service support , Consultations 10/18/18 04:45 Consult: Onc/Wound/director of operations support Routine Comment: Reason for Consult:: RLQ colostomy Infectious disease Urology Operations: None Procedures: None Summary of Care Provided: 68 years old male admitted with fever, malaise, headache, urinary frequency and weakness. He was seen previously for similar complaints and discharged on Augmentin, he came back to the ED with similar complaints. Patient has history of liver transplant 20 years ago. No identifiable source of infection was seen in this patient in this hospitalization. Infectious disease was consulted. CT scan of the brain was negative. Chest x-ray was negative. Blood cultures were negative, urine cultures negative, respiratory panel negative. Patient was started on acyclovir. Initially started on IV vancomycin. Antibiotics were discontinued by infectious disease when no source of infection was found in cultures came back negative. Patient had severe headache throughout this hospital stay, was given Imitrex, IV Toradol with some relief. He was reluctant to have MRI as he was claustrophobic. He refused to be medicated for it. Patient underwent lumbar puncture that showed WBC 5, RBC 20, Neutrophils 40%. CMV and EBV serologies were pending at the time of discharge. Given the fact that there was no clear improvement of after days in the hospital and the fact that patient had continued to have persistent fever, it was felt that patient should be evaluated by a tertiary center. His chose [facility] and patient was accepted and transferred. Subjective: See progress note of the day Objective: See progress note of the day - Physical Exam Vital Signs Temp Pulse Resp BP Pulse Ox 98.4 F 77 14 142/72 H 95 10/22/18 03:27 10/22/18 03:27 10/22/18 03:27 10/22/18 03:27 10/22/18 03:27 Oxygen Flow Rate (L/min) 2 Oxygen Delivery Method Room Air Weight: 109.6 kg Body Mass Index (BMI) 27.1 Intake and Output for Last 24 Hours 10/20/18 10/21/18 10/22/18 23:59 23:59 23:59 Intake Total 3985 / 3985 468 / 468 2710 / 2710 Balance 3985 / 3985 468 / 468 2710 / 2710 Microbiology Past 72 Hours 10/21/18 10:14 Gram Stain - Final Fluid - Other Body Fluid Culture - Preliminary No growth-Final to follow 10/16/18 19:55 Blood Culture - Final Blood Culture (Wb) - Anticubital Left No growth in 5 days. 10/15/18 22:24 Ova and Parasites - Final Stool 10/15/18 16:35 Blood Culture - Final Blood Culture (Wb) - Right Forearm No growth in 5 days. Laboratory Tests Past 24 Hrs 10/21/18 10:14 Miscellaneous Cytology SEE PATHOLOGY REPORT Discharge Diet: Low fat/ Low Cholesterol, Carb Control Diet Discharge Activity: Return to Normal Activity Home Medications: Medications to take at Discharge Acyclovir 400 mg PO BID 11/17/15 Cholecalciferol (VIT D3) [Vitamin D3] 2,000 unit PO DAILY 11/17/15 Multivitamin [Daily Multiple Vitamin] 1 ea PO DAILY 11/17/15 Rifampin [Rifadin] 150 mg PO BID 11/17/15 Smz/Tmp Ds [Bactrim Ds] 1 tab PO MOWEFR 11/17/15 Temazepam 15 mg PO QHS PRN PRN 11/17/15 Ursodiol [Elsa] 750 mg PO BID 11/17/15 tacrolimus 1 mg capsule 6 mg PO Q12H 06/11/18 tamsulosin 0.4 mg capsule 0.4 mg PO DAILY 06/11/18 Metoprolol(XL)Succ [Toprol Xl (Beta Cheri)] 25 mg PO BID 09/01/18 ranitidine 150 mg tablet 150 mg PO DAILY tab 09/20/18 Amox/Clavulanate Tablet [Augmentin Tablet] 875 mg PO Q12H #20 tablet 10/14/18 Oxymetazoline HCl [Afrin] 30 ml NS BID PRN 10/15/18 Primary Care Physician: Sudhir Richter MD [Primary Care Provider] - Disposition: Acute care Hospital Minutes spent on discharge:: 45 Patient Condition:: Stable Medical Necessity - Tobacco Use Smoking Status: Never smoker Tobacco Use: Non-smoker Meaningful Use Info Meaningful Use Diagnoses (Choose all that apply): None applicable Code Visit Inpatient E&M: 93391 Disch Hosp
[2018-10-22 17:37] LABS: CMV Acute Antibody IgM < 30.0 AU/mL (0.0-29.9); CMV by PCR Negative (Negative); EBV Acute VCA IgM < 36.0 U/mL (0.0-35.9); EBV Early Antigen IgG <9.0 U/mL (0.0-8.9); EBV-VCA IgG > 600.0 U/mL (0.0-17.9)
[2018-10-23 14:06] LABS: Cryptococcus Antigen CSF Negative (Negative)
[2018-10-23 15:56] LABS: Pathologist Review Reviewed
== END 2018-10-22 08:40 | disposition short-term general hospital (02) | DRG 864 ==
LOC: ED 20:38 → MS3 21:21
PROVIDERS: Internal Medicine; Internal Medicine Infectious Disease; Admitting Provider Hospitalist; Emergency Provider Emergency Medicine; Family Provider Family Medicine; PCP Family Medicine; Referring Provider Hospitalist; Visit Provider Internal Medicine
DX: R50.9 Fever, unspecified (principal); Z94.4 Liver transplant status; N13.8 Other obstructive and reflux uropathy; E87.1 Hypo-osmolality and hyponatremia; R51 Headache; D69.6 Thrombocytopenia, unspecified; K21.9 Gastro-esophageal reflux disease without esophagitis; N18.2 Chronic kidney disease, stage 2 (mild); N40.1 Benign prostatic hyperplasia with lower urinary tract symptoms; Z93.3 Colostomy status; I48.0 Paroxysmal atrial fibrillation; Z90.49 Acquired absence of other specified parts of digestive tract; N20.0 Calculus of kidney; Z79.899 Other long term (current) drug therapy
CPT/HCPCS: 36415; 62270; 70470; 71046; 74177; 77003; 80048; 80053; 80076; 80202; 81001; 82945; 82962; 83036; 83605; 83690; 83735; 84100; 84157; 85025; 85610; 86644; 86645; 86663; 86664; 86665; 87040; 87070; 87075; 87086; 87177; 87205; 87209; 87493; 87496; 87506; 87633; 87899; 88108; 88305; 88313; 89050; 89051; 96365; 99282; 99285; J2185; J7030; J7040; Q9967; A4216; J2405; J3030

== ENCOUNTER → 2019-07-10 09:20 | Outpatient (CLI) | payer MEDICARE, SELFPAY ==
[2019-05-09 13:09] VITALS: BMI 26.9
== END ==
PROVIDERS: Family Provider Family Medicine; PCP Family Medicine; Referring Provider Internal Medicine Cardiovascular Disease; Visit Provider Internal Medicine Cardiovascular Disease
DX: I48.0 Paroxysmal atrial fibrillation (principal); R00.2 Palpitations
CPT/HCPCS: 93225; 93226

== ENCOUNTER → 2020-01-08 | Outpatient (CLI) | payer MEDICARE, SELFPAY ==
[2019-05-09 13:09] VITALS: BMI 26.9
== END | disposition home or self-care (01) ==
LOC: MTDU 09:35
PROVIDERS: PCP Family Medicine; Visit Provider Family Medicine
DX: Z20.828 Contact with and (suspected) exposure to other viral communicable diseases (principal)
CPT/HCPCS: 87635; G2023; U0003